=== PATIENT | female | born 1960 | race African-American/Black ===

== ENCOUNTER 2016-11-03 11:10 | Emergency (ER) | payer MEDICARE, OTHER ==
[~2016-11-03] VITALS: Ht 154.9 cm; Wt 122.0 kg
[~2016-11-03 11:10] MED LIST: AMLO10TA2 PO; AMOX500T PO; ASPI81TA2 PO; CLON0.3T PO; CLOP75TA27 PO; DOCU-27 PO; FOLI0.8T3 PO; FURO-68 PO; HYDR100T24 PO; INSU100I17 SQ; INSU100V10 SQ; INSU100V13 SQ; INSU100V8 SQ; LISI40TA PO; ONDA4TAB7 PO; POLY17PO5 PO; PROM25TA10 PO; SENN-22 PO; SEVE2.4P PO; VERA240C2 PO
[2016-11-03 13:13] LABS: BASO % 1 % (0-3); EOS % 4 % (0-3); HEMATOCRIT 30.7 % (36.0-47.0); HEMOGLOBIN 9.6 g/dL (12.0-15.5); LYMPH # 1.3 x10^3/uL (1.0-4.8); LYMPH % 14 % (24-48); MEAN CORPUSCULAR HEMOGLOBIN 29 pg (25-35); MEAN CORPUSCULAR HGB CONC 31 g/dL (31-37); MEAN CORPUSCULAR VOLUME 93 fL (79-100); MONO % 12 % (0-9); NEUT % 70 % (31-73); PLATELET COUNT 220 x10^3/uL (140-400); RED BLOOD COUNT 3.31 x10^6/uL (3.50-5.40); WHITE BLOOD COUNT 9.1 x10^3/uL (4.0-11.0)
[2016-11-03 13:26] LABS: CALCIUM 8.5 mg/dL (8.5-10.1); CREATININE 5.2 mg/dL (0.6-1.0); GFR 10.3; POTASSIUM 3.9 mmol/L (3.5-5.1)
--- NOTE | 2016-11-03 13:39 | RAD ---
Two-view chest x-ray Clinical indications shortness of breath for one week. Dyspnea. Comparison: Chest x-ray dated August 16, 2016. Findings: Right subclavian central line is in place and the tip is seen within the mid superior vena cava. Vascular stent is seen within the right brachial region. Small right-sided pleural effusion and posterior right lower lobe lung infiltrate is now seen. The heart size is mildly enlarged but stable. Mediastinum and pulmonary vasculature and both lovely are unremarkable. The osseous structures remain intact. IMPRESSION: Posterior right lower lobe lung infiltrate and small right-sided pleural effusion.
--- NOTE | 2016-11-03 13:46 | PHYS DOC ---
Past Medical History Past Medical History: Diabetes-Type II, Hypertension, Renal Failure, Other Additional Past Medical Histor: HEMODIAYLSIS Past Surgical History: , Other Additional Past Surgical Histo: dialysis shunt right upper arm-removed, Dialysis shunt L upper arm, Vascath Alcohol Use: None Drug Use: None Adult General Chief Complaint Chief Complaint: SHORTNESS OF BREATH HPI HPI Patient is a 56 year old female who presents with one week of dyspnea on exertion. She states that she fatigues easier while walking than usual. She improves at rest. She denies chest pain, lightheadedness, dizziness, back pain, cough, fever or chills, palpitations, orthopnea, leg pain or swelling. She states she is one pound below her dry weight. She has been compliant with dialysis. Review of Systems Review of Systems Constitutional: Denies fever or chills [] Eyes: Denies change in visual acuity, redness, or eye pain [] HENT: Denies nasal congestion or sore throat [] Respiratory: Denies cough [] Cardiovascular: No additional information not addressed in HPI [] GI: Denies abdominal pain, nausea, vomiting, bloody stools or diarrhea [] : Denies dysuria or hematuria [] Musculoskeletal: Denies back pain or joint pain [] Integument: Denies rash or skin lesions [] Neurologic: Denies headache, focal weakness or sensory changes [] Endocrine: Denies polyuria or polydipsia [] Allergies Allergies Allergies Coded Allergies Type Severity Reaction Last Updated Verified No Known Drug Allergies 09/29/16 No Physical Exam Physical Exam Constitutional: Well developed, well nourished, no acute distress, non-toxic appearance. [] HENT: Normocephalic, atraumatic, bilateral external ears normal, oropharynx moist, nose normal. [] Eyes: PERRLA, EOMI. [] Neck: Normal range of motion, supple. [] Cardiovascular:Heart rate regular rhythm [] Lungs & Thorax: Bilateral breath sounds clear to auscultation. Temporary dialysis catheter to right upper chest that is well-appearing at skin [] Abdomen: Bowel sounds normal, soft, no tenderness. [] Skin: Warm, dry, no erythema, no rash. [] Back: No tenderness, no CVA tenderness. [] Extremities: No tenderness, ROM intact, no edema. [] Neurologic: Alert and oriented X 3, normal motor function, normal sensory function, no focal deficits noted. [] Psychologic: Affect normal, judgement normal, mood normal. [] Current Patient Data Vital Signs Vital Signs Date Time Temp Pulse Resp B/P Pulse Ox O2 Delivery O2 Flow Rate FiO2 11/03/16 13:53 74 18 168/73 99 11/03/16 13:23 Nasal Cannula 11/03/16 12:13 98.5 98.5 Lab Values Laboratory Tests Test 11/03/16 12:52 White Blood Count 9.1x10^3/uL (4.0-11.0) Red Blood Count 3.31x10^6/uL (3.50-5.40) L Hemoglobin 9.6g/dL (12.0-15.5) L Hematocrit 30.7% (36.0-47.0) L Mean Corpuscular Volume 93fL (79-100) Mean Corpuscular Hemoglobin 29pg (25-35) Mean Corpuscular Hemoglobin Concent 31g/dL (31-37) Red Cell Distribution Width 18.0% (11.5-14.5) H Platelet Count 220x10^3/uL (140-400) Neutrophils (%) (Auto) 70% (31-73) Lymphocytes (%) (Auto) 14% (24-48) L Monocytes (%) (Auto) 12% (0-9) H Eosinophils (%) (Auto) 4% (0-3) H Basophils (%) (Auto) 1% (0-3) Neutrophils # (Auto) 6.4x10^3uL (1.8-7.7) Lymphocytes # (Auto) 1.3x10^3/uL (1.0-4.8) Monocytes # (Auto) 1.1x10^3/uL (0.0-1.1) Eosinophils # (Auto) 0.3x10^3/uL (0.0-0.7) Basophils # (Auto) 0.0x10^3/uL (0.0-0.2) Sodium Level 141mmol/L (136-145) Potassium Level 3.9mmol/L (3.5-5.1) Chloride Level 106mmol/L (98-107) Carbon Dioxide Level 24mmol/L (21-32) Anion Gap 11 (6-14) Blood Urea Nitrogen 20mg/dL (7-20) Creatinine 5.2mg/dL (0.6-1.0) H Estimated GFR (Cockcroft-Gault) 10.3 Glucose Level 148mg/dL (70-99) H Calcium Level 8.5mg/dL (8.5-10.1) Laboratory Tests 11/03/16 12:52 Laboratory Tests 11/03/16 12:52 EKG EKG EKG as interpreted by me as normal sinus rhythm, rate 76, no ST-T changes, normal intervals, no ectopy Radiology/Procedures Radiology/Procedures Chest x-ray as interpreted by me with small right pleural effusion, otherwise no focal consolidation or cardiopulmonary disease process Course & Med Decision Making Course & Med Decision Making Pertinent Labs and Imaging studies reviewed. (See chart for details) She has a right pleural effusion, but otherwise workup is unremarkable. She has been ambulatory through the emergency department and feels comfortable. She has no oxygen requirement at this time. She has no infectious symptoms either. She would like to go home and follow-up with her primary care doctor closely. Return precautions given. She understands and agrees with plan. Dragon Disclaimer Dragon Disclaimer This electronic medical record was generated, in whole or in part, using a voice recognition dictation system. Departure Departure Impression: Primary Impression: Dyspnea Disposition: 01 HOME, SELF-CARE Condition: STABLE Referrals: PETE TILLMAN APRN (PCP) Patient Instructions: Shortness of Breath, [id number] Additional Instructions: Follow-up with your primary care doctor. Return for any concerns. Problem Qualifiers Primary Impression: Dyspnea Dyspnea type: dyspnea on exertion Qualified Code: R06.09 - Other forms of dyspnea Rahel DE LA VEGA MD Nov 03, 2016 13:46
[2016-11-03 13:53] VITALS: BP 168/73
--- NOTE | 2016-11-03 16:00 | EKG ---
[facility] [address] [place] [address] Test Date: 2016-11-03 Test Time: 13:06:24 Pat Name: OLIVE ROBERTS Department: Room: Gender: F Can Patcher: : 1960 Requested By: Rahel DE LA VEGA Order Number: [id number] Reading MD: Estelita Casey Measurements Intervals [place] Rate: 76 P: 36 PA: 170 QRS: 29 QRSD: 76 T: 34 QT: 400 QTc: 455 Interpretive Statements SINUS RHYTHM NORMAL ECG RI6.01 Compared to ECG 08/16/2016 12:10:07 No significant changes Electronically Signed On 11-05-2016 20:51:22 RESIDENTIAL CARE OFFICER by Estelita Casey
== END 2016-11-03 14:00 | disposition home or self-care (01) ==
LOC: ER 11:10
DX: R06.09 Other forms of dyspnea (principal); J90 Pleural effusion, not elsewhere classified; E11.22 Type 2 diabetes mellitus with diabetic chronic kidney disease; I12.9 Hypertensive chronic kidney disease with stage 1 through stage 4 chronic kidney disease, or unspecified chronic kidney disease; N18.9 Chronic kidney disease, unspecified; Z99.2 Dependence on renal dialysis
CPT/HCPCS: 36415; 71020; 80048; 85027; 93005; 99285-25

== ENCOUNTER 2017-02-14 19:24 | Inpatient (IN) | payer MEDICARE, OTHER ==
[~2017-02-14] VITALS: Ht 154.9 cm; Wt 112.7 kg
[~2017-02-14 19:24] MED LIST changes: +POLY17PO29 PO; -POLY17PO5 PO
[2017-02-14] MEDS ORDERED: ONDANSETRON PF 4 MG/2 ML VIAL. IV ONE (20:15)
[2017-02-14 20:28] LABS: BASO # 0.1 x10^3/uL (0.0-0.2); BASO % 1 % (0-3); EOS % 1 % (0-3); HEMATOCRIT 35.7 % (36.0-47.0); HEMOGLOBIN 11.4 g/dL (12.0-15.5); LYMPH # 0.7 x10^3/uL (1.0-4.8); LYMPH % 8 % (24-48); MEAN CORPUSCULAR HEMOGLOBIN 28 pg (25-35); MEAN CORPUSCULAR HGB CONC 32 g/dL (31-37); MEAN CORPUSCULAR VOLUME 89 fL (79-100); MONO % 7 % (0-9); NEUT % 84 % (31-73); PLATELET COUNT 231 x10^3/uL (140-400); RED BLOOD COUNT 4.02 x10^6/uL (3.50-5.40); RED CELL DISTRIBUTION WIDTH 19.7 % (11.5-14.5); WHITE BLOOD COUNT 8.8 x10^3/uL (4.0-11.0)
[2017-02-14 20:38] LABS: BILIRUBIN,URINE NEGATIVE (NEG); GLUCOSE,URINE 100 mg/dL (NEG); NITRITE,URINE NEGATIVE (NEG); PH,URINE 7.5; PROTEIN,URINE >=300 mg/dL (NEG-TRACE); UROBILINOGEN,URINE 0.2 mg/dL (0.2 mg/dL)
[2017-02-14 20:38] LABS: CALCIUM 8.7 mg/dL (8.5-10.1); CREATININE 6.7 mg/dL (0.6-1.0); GFR 7.7; POTASSIUM 4.8 mmol/L (3.5-5.1)
[2017-02-14 20:45] LABS: BACTERIA,URINE 0 /HPF (0-FEW); SQUAMOUS EPITHELIAL CELL,UR FEW /LPF
[2017-02-14 20:46] LABS: ALBUMIN 3.3 g/dL (3.4-5.0); ALBUMIN/GLOBULIN RATIO 0.9 (1.0-1.7); TOTAL BILIRUBIN 0.6 mg/dL (0.2-1.0); TOTAL PROTEIN 6.9 g/dL (6.4-8.2)
--- NOTE | 2017-02-14 21:14 | PHYS DOC ---
Past Medical History Past Medical History: Diabetes-Type II, Hypertension, Renal Failure, Other Additional Past Medical Histor: HEMODIAYLSIS Past Surgical History: , Other Additional Past Surgical Histo: dialysis shunt right upper arm-removed, Dialysis shunt L upper arm, Vascath Alcohol Use: None Drug Use: None Adult General Chief Complaint Chief Complaint: NAUSEA/VOMITING HPI HPI Patient is a 56 year old female dialysis patient who presents with about a week of nausea and vomiting. When it began, Zofran ODT was helping, for the last couple of days it has not been helping. She's been vomiting up to 7 times a day. She's been throwing up her meds including her antihypertensives. This is not a chronic problem for her. She did dialyze yesterday as scheduled, her dialysis schedule is Sunday and Sunday. She denies really any pain, denies abdominal pain, is just very nauseated and doing a lot of vomiting. No diarrhea. She also is a bit short of air, ED nurses reported that she was in the low 80s on room air on arrival and they put her on 2 L and her pulse ox came up to the low 90s. Patient denies fever or chills. Denies history of bowel obstruction. Review of Systems Review of Systems Constitutional: Denies fever or chills [] Eyes: Denies change in visual acuity, redness, or eye pain [] HENT: Denies nasal congestion or sore throat [] Respiratory: Denies cough or shortness of breath [] Cardiovascular: Denies chest pain GI: As in history of present illness : Denies dysuria or hematuria , she does still make urine Musculoskeletal: Denies back pain or joint pain [] Integument: Denies rash or skin lesions [] Neurologic: Denies headache, focal weakness or sensory changes [] Current Medications Current Medications Current Medications Medications (Trade) Dose Ordered Sig/Anil Start Time Stop Time Status Last Admin Dose Admin Hydralazine HCl (Apresoline) 10 mg 1X ONCE 02/14/17 21:15 02/14/17 21:16 DC 02/14/17 21:13 10 MG Ondansetron HCl (Zofran) 4 mg PRN Q8HRS PRN 02/14/17 22:15 02/15/17 22:14 Allergies Allergies Allergies Coded Allergies Type Severity Reaction Last Updated Verified No Known Drug Allergies 09/29/16 No Physical Exam Physical Exam Constitutional: Well developed, well nourished, alert, mentating normally, slightly dyspneic when talking HENT: Normocephalic, atraumatic, bilateral external ears normal, nose normal. [] Eyes: conjunctiva normal, no discharge. [] Neck: Normal range of motion, no stridor. [] Cardiovascular:Heart rate regular rhythm, no murmur [] Lungs & Thorax: Bilateral breath sounds clear to auscultation [] Abdomen: Bowel sounds normal, nondistended, soft, no tenderness, no masses, no pulsatile masses. Abdomen is really quite benign. Skin: Warm, dry, no erythema, no rash. [] Back: No tenderness, no CVA tenderness. [] Extremities: No tenderness, no cyanosis, no clubbing, ROM intact, no edema. Dialysis fistula in left arm appears stable. Neurologic: Alert and oriented X 3, normal motor function, normal sensory function, no focal deficits noted. [] Current Patient Data Vital Signs Vital Signs Date Time Temp Pulse Resp B/P Pulse Ox O2 Delivery O2 Flow Rate FiO2 02/14/17 21:30 87 22 197/131 97 Nasal Cannula 2 02/14/17 19:31 98.2 98.2 Lab Values Laboratory Tests Test 02/14/17 20:00 02/14/17 20:30 White Blood Count 8.8x10^3/uL (4.0-11.0) Red Blood Count 4.02x10^6/uL (3.50-5.40) Hemoglobin 11.4g/dL (12.0-15.5) L Hematocrit 35.7% (36.0-47.0) L Mean Corpuscular Volume 89fL (79-100) Mean Corpuscular Hemoglobin 28pg (25-35) Mean Corpuscular Hemoglobin Concent 32g/dL (31-37) Red Cell Distribution Width 19.7% (11.5-14.5) H Platelet Count 231x10^3/uL (140-400) Neutrophils (%) (Auto) 84% (31-73) H Lymphocytes (%) (Auto) 8% (24-48) L Monocytes (%) (Auto) 7% (0-9) Eosinophils (%) (Auto) 1% (0-3) Basophils (%) (Auto) 1% (0-3) Neutrophils # (Auto) 7.4x10^3uL (1.8-7.7) Lymphocytes # (Auto) 0.7x10^3/uL (1.0-4.8) L Monocytes # (Auto) 0.6x10^3/uL (0.0-1.1) Eosinophils # (Auto) 0.1x10^3/uL (0.0-0.7) Basophils # (Auto) 0.1x10^3/uL (0.0-0.2) Sodium Level 139mmol/L (136-145) Potassium Level 4.8mmol/L (3.5-5.1) Chloride Level 100mmol/L (98-107) Carbon Dioxide Level 29mmol/L (21-32) Anion Gap 10 (6-14) Blood Urea Nitrogen 38mg/dL (7-20) H Creatinine 6.7mg/dL (0.6-1.0) H Estimated GFR (Cockcroft-Gault) 7.7 BUN/Creatinine Ratio 6 (6-20) Glucose Level 202mg/dL (70-99) H Calcium Level 8.7mg/dL (8.5-10.1) Total Bilirubin 0.6mg/dL (0.2-1.0) Aspartate Amino Transferase (AST) 19U/L (15-37) Alanine Aminotransferase (ALT) 17U/L (14-59) Alkaline Phosphatase 78U/L (46-116) Troponin I Quantitative < 0.017ng/mL (0.000-0.055) Total Protein 6.9g/dL (6.4-8.2) Albumin 3.3g/dL (3.4-5.0) L Albumin/Globulin Ratio 0.9 (1.0-1.7) L Lipase 134U/L (73-393) Urine Collection Type U cath Urine Color Yellow Urine Clarity Clear Urine pH 7.5 Urine Specific [place] 1.015 Urine Protein >=300mg/dL (NEG-TRACE) Urine Glucose (UA) 100mg/dL (NEG) Urine Ketones (Stick) Tracemg/dL (NEG) Urine Blood Negative (NEG) Urine Nitrite Negative (NEG) Urine Bilirubin Negative (NEG) Urine Urobilinogen Dipstick 0.2mg/dL (0.2 mg/dL) Urine Leukocyte Esterase Negative (NEG) Urine RBC 11-20/HPF (0-2) Urine WBC 1-4/HPF (0-4) Urine Squamous Epithelial Cells Few/LPF Urine Renal Epithelial Cells Few/LPF Urine Bacteria 0/HPF (0-FEW) Urine Mucus Mod/LPF Laboratory Tests 02/14/17 20:00 Laboratory Tests 02/14/17 20:00 EKG EKG 12-lead EKG read by me. Sinus rhythm. Heart rate 92. There are no acute ST or T wave changes indicative of ischemia or infarction. No STEMI. 194 [] Radiology/Procedures Radiology/Procedures One view portable chest x-ray read by me. Heart size normal to borderline enlarged. Lung finch without significant consolidated infiltrate. No pleural effusions. Her may be some increased pulmonary vascularity, no overt pulmonary edema. [] Course & Med Decision Making Course & Med Decision Making Pertinent Labs and Imaging studies reviewed. (See chart for details) 56-year-old dialysis patient presents with a week of nausea and vomiting, worsening. She has not missed dialysis. Discussed with patient that we will check some labs and try some IV in time medic. She was not able to keep her blood pressure medicine down today, I will order her some antihypertensive as well. Patient remained stable in the ED and did not have any more vomiting after given IV Zofran. Her blood pressure ran high that she was given some IV hydralazine for that. Labs unremarkable for a finding that would be consistent with vomiting. Her abdominal exam is benign and I don't feel CT scan is indicated at this time. I discussed with the patient being admitted for symptom control and observation. I did not order IV fluids because of her status as a dialysis patient. Her chest x-ray may be consistent with some mild pulmonary edema as well so I don't want to give her any more fluids. I discussed the case with Dr. nogueira, [facility], who will admit the patient. I wrote bridge orders. [] Dragon Disclaimer Dragon Disclaimer This electronic medical record was generated, in whole or in part, using a voice recognition dictation system. Departure Departure Impression: Primary Impression: Nausea & vomiting Disposition: ADMITTED INPATIENT Admitting Physician: Jimena Nogueira Condition: STABLE Referrals: PETE TILLMAN APRN (PCP) CEDRIC HEWITT MD February 14, 2017 21:14
[2017-02-14] MEDS ORDERED: hydrALAZINE 20 MG/ML VIAL. IVP ONE (21:15)
[2017-02-14] MEDS ORDERED: ONDANSETRON PF 4 MG/2 ML VIAL. IV PRN (22:15)
[2017-02-14] MEDS ORDERED: PROMETHAZINE 12.5 MG TABLET. PO PRN (23:15)
--- NOTE | 2017-02-14 23:16 | PDOC1 ---
History and Physical Date of Admission Date of Admission DATE: 02/14/17 TIME: 23:07 Identification/Chief Complaint Chief Complaint vomiting Problems: Source Source: Chart review, Patient History of Present Illness History of Present Illness Ms. Rojas is a 56 year old female admit from the ER w. intractable nausea and vomiting. 7 days of problems, some benefit w/ Zofran ODT, but has been unable to keep meds down today, tried juice and crackers for breakfast and vomited, tried chicken wings for late lunch and vomitied, She's been vomiting up to 7 times a day. unable to take HTN meds compliant with other, was at HD yesterday and saw Dr. metcalf some nasal congestion, some change in voice, no diarrhea. minimal pain + thirsty Past Medical History Cardiovascular: HTN Renal/: Chronic renal failure Past Surgical History Past Surgical History: Other Family History Family History: No Significant Social History Smoke: No ALCOHOL: none Drugs: None Current Problem List Problem List Problems Medical Problems: (1) Nausea & vomiting Status: Acute Problems: Current Medications Current Medications Current Medications Ondansetron HCl (Zofran) 4 mg 1X ONCE IV Last administered on 02/14/17 20:28; Start 02/14/17 at 20:15; Stop 02/14/17 at 20:20; Status DC Hydralazine HCl (Apresoline) 10 mg 1X ONCE IVP Last administered on 02/14/17 21:13; Start 02/14/17 at 21:15; Stop 02/14/17 at 21:16; Status DC Ondansetron HCl (Zofran) 4 mg PRN Q8HRS PRN IV NAUSEA/VOMITING; Start 02/14/17 at 22:15; Stop 02/15/17 at 22:14 Active Scripts Active Senna-Time S Tablet (Sennosides/Docusate Sodium) 1 Each Tablet 1 Tab PO BID Promethazine Hcl 25 Mg Tablet 25 Mg PO Q6H PRN Reported Novolog Flexpen (Insulin Aspart) 100 Unit/1 Ml Insuln.pen 0 SQ Levemir (Insulin Detemir) 100 Unit/1 Ml Vial 18 Unit SQ QHS Colace (Docusate Sodium) 100 Mg Capsule 200 Mg PO BID Renvela (Sevelamer Carbonate) 2.4 Gm Powd.pack 2.4 Gm PO TIDWMEALS Plavix (Clopidogrel Bisulfate) 75 Mg Tablet 75 Mg PO DAILY Hydralazine Hcl 100 Mg Tablet 100 Mg PO TID Amlodipine Besylate 10 Mg Tablet 10 Mg PO DAILY Nephro-Jill Tablet (Folic Acid/Vitamin B Comp W-C) 0.8 Mg Tablet 0.8 Mg PO DAILY Aspirin 81 Mg Tab.chew 81 Mg PO DAILY Miralax (Polyethylene Glycol 3350) 17 Gm Powd.pack 17 Gm PO DAILY Lisinopril 40 Mg Tablet 40 Mg PO BID Clonidine Hcl 0.3 Mg Tablet 0.3 Mg PO QID Allergies Allergies: Coded Allergies: No Known Drug Allergies (Unverified , 09/29/16) ROS General: YES: Fatigue, Malaise, No: Chills, Night Sweats, Other PSYCHOLOGICAL ROS: YES: Sleep disturbances, No: Anxiety, Behavioral Disorder, Concentration difficultie, Decreased libido , Depression, Disorientation, Hallucinations, Hostility, Irritablity, Memory difficulties, Mood Swings, Obsessive thoughts, Other, Suicidal ideation Eyes: No Blurry vision, No Decreased vision, No Double vision, No Dry eyes, No Excessive tearing, No Eye Pain, No Itchy Eyes, No Loss of vision, No Other, No Photophobia, No Scotomata, No Uses contacts, No Uses glasses HEENT: No: Epistaxis, Heacaches, Hearing change, Nasal congestion, Nasal discharge, Oral lesions, Other, Sinus pain, Sneezing, Snoring, Sore Throat, Tinnitus, Vertigo, Visual Changes, Vocal changes ALLERGY AND IMMUNOLOGY: No: Hives, Insect Bite Sensitivity, Itchy/Watery Eyes, Nasal Congestion, Other, Post Nasal Drip, Seasonal Allergies Hematological and Lymphatic: No: Bleeding Problems, Blood Clots, Blood Transfusions, Brusing, Night Sweats, Other, Pallor, Swollen Lymph Nodes Respiratory: No: Cough, Hemoptysis, Orthopnea, Other, Pleuritic Pain, SOB with excertion, Shortness of breath, Sputum Changes, Stridor, Tachypnea, Wheezing Cardiovascular: No Chest Pain, No Edema, No Lt Headedness, No Orthopnea, No Other, No Palpitations, No Paroxysmal Noc. Dyspnea Gastrointestinal: Yes Abdominal Pain, Yes Nausea, Yes Vomiting, No Constipation, No Diarrhea, No Hematochezia, No Melena, No Other Genitourinary: No , No , No , No , No , No , No , No Discharge, No Dysuria, No Flank Pain, No Frequency, No Hematuria, No Incontinence, No Other, No Pain, No Retention, No Urgency Musculoskeletal: Yes Joint Pain, Yes Joint Stiffness, No Gait Disturbance, No Joint Swelling, No Muscle Pain, No Muscular Weakness , No Other, No Pain In:, No Swelling In: Neurological: No Behavorial Changes, No Bowel/Bladder ControlChng, No Confusion , No Dizziness, No Gait Disturbance, No Headaches, No Impaired Coord/balance, No Memory Loss, No Numbness/Tingling, No Other, No Seizures, No Speech Problems , No Tremors, No Visual Changes, No Weakness Skin: Yes Other, No Acne, No Dry Skin, No Eczema, No Hair Changes, No Lumps, No Mole Changes, No Mottling, No Nail Changes, No Pruritus, No Rash, No Skin Lesion Changes Physical Exam General: Alert, Cooperative, No acute distress HEENT: Mucous membr. moist/pink Lungs: Clear to auscultation, Normal air movement Heart: no gallops, no murmurs Abdomen: Normal bowel sounds, Soft (mild TTP) Rectal Exam: not examined Extremities: No clubbing, No edema Skin: No significant lesion Neuro: Normal tone, Sensation intact Vitals Vitals Vital Signs Date Time Temp Pulse Resp B/P Pulse Ox O2 Delivery O2 Flow Rate FiO2 02/14/17 22:00 84 20 176/76 98 Nasal Cannula 2 02/14/17 19:31 98.2 98.2 Labs Labs Laboratory Tests Test 02/14/17 20:00 02/14/17 20:30 White Blood Count 8.8x10^3/uL (4.0-11.0) Red Blood Count 4.02x10^6/uL (3.50-5.40) Hemoglobin 11.4g/dL (12.0-15.5) Hematocrit 35.7% (36.0-47.0) Mean Corpuscular Volume 89fL (79-100) Mean Corpuscular Hemoglobin 28pg (25-35) Mean Corpuscular Hemoglobin Concent 32g/dL (31-37) Red Cell Distribution Width 19.7% (11.5-14.5) Platelet Count 231x10^3/uL (140-400) Neutrophils (%) (Auto) 84% (31-73) Lymphocytes (%) (Auto) 8% (24-48) Monocytes (%) (Auto) 7% (0-9) Eosinophils (%) (Auto) 1% (0-3) Basophils (%) (Auto) 1% (0-3) Neutrophils # (Auto) 7.4x10^3uL (1.8-7.7) Lymphocytes # (Auto) 0.7x10^3/uL (1.0-4.8) Monocytes # (Auto) 0.6x10^3/uL (0.0-1.1) Eosinophils # (Auto) 0.1x10^3/uL (0.0-0.7) Basophils # (Auto) 0.1x10^3/uL (0.0-0.2) Sodium Level 139mmol/L (136-145) Potassium Level 4.8mmol/L (3.5-5.1) Chloride Level 100mmol/L (98-107) Carbon Dioxide Level 29mmol/L (21-32) Anion Gap 10 (6-14) Blood Urea Nitrogen 38mg/dL (7-20) Creatinine 6.7mg/dL (0.6-1.0) Estimated GFR (Cockcroft-Gault) 7.7 BUN/Creatinine Ratio 6 (6-20) Glucose Level 202mg/dL (70-99) Calcium Level 8.7mg/dL (8.5-10.1) Total Bilirubin 0.6mg/dL (0.2-1.0) Aspartate Amino Transf (AST/SGOT) 19U/L (15-37) Alanine Aminotransferase (ALT/SGPT) 17U/L (14-59) Alkaline Phosphatase 78U/L (46-116) Troponin I Quantitative < 0.017ng/mL (0.000-0.055) Total Protein 6.9g/dL (6.4-8.2) Albumin 3.3g/dL (3.4-5.0) Albumin/Globulin Ratio 0.9 (1.0-1.7) Lipase 134U/L (73-393) Urine Collection Type U cath Urine Color Yellow Urine Clarity Clear Urine pH 7.5 Urine Specific [place] 1.015 Urine Protein >=300mg/dL (NEG-TRACE) Urine Glucose (UA) 100mg/dL (NEG) Urine Ketones (Stick) Tracemg/dL (NEG) Urine Blood Negative (NEG) Urine Nitrite Negative (NEG) Urine Bilirubin Negative (NEG) Urine Urobilinogen Dipstick 0.2mg/dL (0.2 mg/dL) Urine Leukocyte Esterase Negative (NEG) Urine RBC 11-20/HPF (0-2) Urine WBC 1-4/HPF (0-4) Urine Squamous Epithelial Cells Few/LPF Urine Renal Epithelial Cells Few/LPF Urine Bacteria 0/HPF (0-FEW) Urine Mucus Mod/LPF Laboratory Tests Test 02/14/17 20:00 02/14/17 20:30 White Blood Count 8.8x10^3/uL (4.0-11.0) Red Blood Count 4.02x10^6/uL (3.50-5.40) Hemoglobin 11.4g/dL (12.0-15.5) Hematocrit 35.7% (36.0-47.0) Mean Corpuscular Volume 89fL (79-100) Mean Corpuscular Hemoglobin 28pg (25-35) Mean Corpuscular Hemoglobin Concent 32g/dL (31-37) Red Cell Distribution Width 19.7% (11.5-14.5) Platelet Count 231x10^3/uL (140-400) Neutrophils (%) (Auto) 84% (31-73) Lymphocytes (%) (Auto) 8% (24-48) Monocytes (%) (Auto) 7% (0-9) Eosinophils (%) (Auto) 1% (0-3) Basophils (%) (Auto) 1% (0-3) Neutrophils # (Auto) 7.4x10^3uL (1.8-7.7) Lymphocytes # (Auto) 0.7x10^3/uL (1.0-4.8) Monocytes # (Auto) 0.6x10^3/uL (0.0-1.1) Eosinophils # (Auto) 0.1x10^3/uL (0.0-0.7) Basophils # (Auto) 0.1x10^3/uL (0.0-0.2) Sodium Level 139mmol/L (136-145) Potassium Level 4.8mmol/L (3.5-5.1) Chloride Level 100mmol/L (98-107) Carbon Dioxide Level 29mmol/L (21-32) Anion Gap 10 (6-14) Blood Urea Nitrogen 38mg/dL (7-20) Creatinine 6.7mg/dL (0.6-1.0) Estimated GFR (Cockcroft-Gault) 7.7 BUN/Creatinine Ratio 6 (6-20) Glucose Level 202mg/dL (70-99) Calcium Level 8.7mg/dL (8.5-10.1) Total Bilirubin 0.6mg/dL (0.2-1.0) Aspartate Amino Transf (AST/SGOT) 19U/L (15-37) Alanine Aminotransferase (ALT/SGPT) 17U/L (14-59) Alkaline Phosphatase 78U/L (46-116) Troponin I Quantitative < 0.017ng/mL (0.000-0.055) Total Protein 6.9g/dL (6.4-8.2) Albumin 3.3g/dL (3.4-5.0) Albumin/Globulin Ratio 0.9 (1.0-1.7) Lipase 134U/L (73-393) Urine Collection Type U cath Urine Color Yellow Urine Clarity Clear Urine pH 7.5 Urine Specific [place] 1.015 Urine Protein >=300mg/dL (NEG-TRACE) Urine Glucose (UA) 100mg/dL (NEG) Urine Ketones (Stick) Tracemg/dL (NEG) Urine Blood Negative (NEG) Urine Nitrite Negative (NEG) Urine Bilirubin Negative (NEG) Urine Urobilinogen Dipstick 0.2mg/dL (0.2 mg/dL) Urine Leukocyte Esterase Negative (NEG) Urine RBC 11-20/HPF (0-2) Urine WBC 1-4/HPF (0-4) Urine Squamous Epithelial Cells Few/LPF Urine Renal Epithelial Cells Few/LPF Urine Bacteria 0/HPF (0-FEW) Urine Mucus Mod/LPF VTE Prophylaxis Ordered VTE Prophylaxis Devices: Yes VTE Pharmacological Prophylaxi: Yes Assessment/Plan Assessment/Plan acute abd pain, vomiting, and nausea, no diarrhea no abd pain, check KUB for poss SBO, limit PO intake to ice and sips consult GI, check chem 12 in AM cont zofran and phenergan ESRD, HD due tomorrow was 1 KG over dry weight yesterday morbid obesity, BMI 47 DM2, hold aspart when NPO, glucose 200 when she reports mostly NPO all day, HTN, poor control, 175/105 in ER, she reports was over 210 systolic at HD yesterday, was given additional klonipin admit BRAD QUEZADA MD February 14, 2017 23:16
[2017-02-14 23:30] VITALS: BP 183/59
[2017-02-15 02:44] VITALS: BP 169/55
[2017-02-15] MEDS ORDERED: SEVE2.4P PO (03:28)
[2017-02-15 03:32] LABS: BASO # 0.1 x10^3/uL (0.0-0.2); BASO % 1 % (0-3); EOS % 1 % (0-3); HEMATOCRIT 33.1 % (36.0-47.0); HEMOGLOBIN 10.7 g/dL (12.0-15.5); LYMPH # 1.1 x10^3/uL (1.0-4.8); LYMPH % 14 % (24-48); MEAN CORPUSCULAR HEMOGLOBIN 29 pg (25-35); MEAN CORPUSCULAR HGB CONC 32 g/dL (31-37); MEAN CORPUSCULAR VOLUME 88 fL (79-100); MONO % 13 % (0-9); NEUT % 72 % (31-73); PLATELET COUNT 216 x10^3/uL (140-400); RED BLOOD COUNT 3.75 x10^6/uL (3.50-5.40); RED CELL DISTRIBUTION WIDTH 19.9 % (11.5-14.5); WHITE BLOOD COUNT 7.9 x10^3/uL (4.0-11.0)
[2017-02-15 03:37] LABS: MAGNESIUM 2.3 mg/dL (1.8-2.4); PHOSPHORUS 5.4 mg/dL (2.6-4.7)
[2017-02-15 03:40] LABS: ALBUMIN 3.1 g/dL (3.4-5.0); CALCIUM 8.2 mg/dL (8.5-10.1); CREATININE 7.3 mg/dL (0.6-1.0); GFR 6.9; TOTAL BILIRUBIN 0.5 mg/dL (0.2-1.0); TOTAL PROTEIN 6.2 g/dL (6.4-8.2)
[2017-02-15 06:48] VITALS: BP 187/66
--- NOTE | 2017-02-15 06:48 | EKG ---
[facility] [address] [place] [id number] Test Date: 2017-02-14 Test Time: 19:44:54 Pat Name: OLIVE ROBERTS Department: Room: 646 1 Gender: F Yarn Dumper: : 1960 Requested By: CEDRIC HEWITT Order Number: [id number] Reading MD: Estelita Casey Measurements Intervals [place] Rate: 92 P: 53 MA: 142 QRS: 24 QRSD: 70 T: 44 QT: 356 QTc: 445 Interpretive Statements SINUS RHYTHM LEFT ATRIAL ABNORMALITY RI6.01 Unconfirmed report Compared to ECG 11/03/2016 13:06:24 Atrial abnormality now present Electronically Signed On 02-18-2017 17:35:27 CDT by Estelita Casey
--- NOTE | 2017-02-15 07:15 | RAD ---
Portable abdomen, 2 views, 02/15/2017: History: Vomiting There is a moderate amount of stool in the right colon. The abdominal gas pattern shows no evidence of obstruction. No free air is seen in the abdomen. There is no evidence of organomegaly. Blunting of the left lateral costophrenic angle suggests the presence of a small amount of left-sided pleural fluid. IMPRESSION: 1. No acute abdominal abnormality is detected. 2. Possible small left pleural effusion.
--- NOTE | 2017-02-15 08:14 | RAD ---
Portable chest, 02/14/2017: History: Hypoxia, shortness of breath Comparison is made to a study from 11/03/2016. The heart is mildly enlarged. The pulmonary vascularity is within normal limits. There is poor penetration of the lung bases due to the patient's size. There is questionable infiltrate or pleural fluid in the left lateral costophrenic angle. A vascular stent is projected over the right axillary region. IMPRESSION: 1. Mild cardiomegaly. 2. Possible mild left basilar infiltrate or pleural fluid.. Follow-up PA and lateral chest radiographs in the radiology department are suggested for further evaluation, if clinically indicated.
[2017-02-15] MEDS: SENNOSIDES/DOCUSATE 8.6/50MG TABLET. PO SCH ×2 (08:23→21:41)
[2017-02-15] MEDS: DOCUSATE SODIUM 100 MG CAPSULE. PO SCH ×2 (08:25→21:40)
[2017-02-15] MEDS: POLYETHYLENE GLYCOL 3350 17 GM PACKET. PO SCH (08:25)
[2017-02-15] MEDS: ASPIRIN CHEWABLE 81 MG TABLET. PO SCH (08:26)
[2017-02-15] MEDS: cloNIDine HCL 0.3 MG TABLET PO SCH ×4 (08:26→21:39)
[2017-02-15] MEDS: SEVELAMER CARBONATE 2.4 GM PACKET. PO SCH ×3 (08:27→17:00)
--- NOTE | 2017-02-15 08:29 | PDOC2 ---
GI CONSULT Reason For Consult: N/v HPI: HPI: 56 y/o female w/ PMH as below reports h/o n/v x 1 month. Similar symptoms in , seen in ER, resolved. When recurred, at first occurred about every other day, often 30-60 minutes after eating. Has epigastric fullness and nausea frequently. Estimates 30 pound weight loss since 09/2016. Often feels "burning" in her throat. Saw PCP 1.5 weeks ago, started on PPI BID and Zofran ODT which were both somewhat effective. Symptoms much worse yesterday, unable to keep any pills or liquids down, was evaluated in ER and admitted. H/o constipation controlled w/ Colace BID + Miralax QD. No hematemesis, hematochezia, melena. No NSAIDs. 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 No previous EGD or colonoscopy. 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 FH: Family History: No pertinent hx (denies GI cancers) Social History: Smoke: No ALCOHOL: none Drugs: None ROS: GEN: Denies fevers, chills, sweats HEENT: Denies blurred vision, sore throat CV: Denies chest pain RESP: +SOA GI: Per HPI : Denies hematuria, dysuria ENDO: +weight loss NEURO: Denies confusion, dizziness MSK: Denies weakness, joint pain/swelling SKIN: Denies jaundice, pruritus VItals: Vitals: Vital Signs Date Time Temp Pulse Resp B/P (MAP) Pulse Ox O2 Delivery O2 Flow Rate FiO2 02/15/17 06:48 97.9 84 20 187/66 (106) 92 Nasal Cannula 2.0 97.9 Labs: Labs: Laboratory Tests Test 02/14/17 20:00 02/14/17 20:30 02/14/17 23:13 02/15/17 02:50 White Blood Count 8.8 x10^3/uL (4.0-11.0) 7.9 x10^3/uL (4.0-11.0) Red Blood Count 4.02 x10^6/uL (3.50-5.40) 3.75 x10^6/uL (3.50-5.40) Hemoglobin 11.4 g/dL (12.0-15.5) 10.7 g/dL (12.0-15.5) Hematocrit 35.7 % (36.0-47.0) 33.1 % (36.0-47.0) Mean Corpuscular Volume 89 fL (79-100) 88 fL (79-100) Mean Corpuscular Hemoglobin 28 pg (25-35) 29 pg (25-35) Mean Corpuscular Hemoglobin Concent 32 g/dL (31-37) 32 g/dL (31-37) Red Cell Distribution Width 19.7 % (11.5-14.5) 19.9 % (11.5-14.5) Platelet Count 231 x10^3/uL (140-400) 216 x10^3/uL (140-400) Neutrophils (%) (Auto) 84 % (31-73) 72 % (31-73) Lymphocytes (%) (Auto) 8 % (24-48) 14 % (24-48) Monocytes (%) (Auto) 7 % (0-9) 13 % (0-9) Eosinophils (%) (Auto) 1 % (0-3) 1 % (0-3) Basophils (%) (Auto) 1 % (0-3) 1 % (0-3) Neutrophils # (Auto) 7.4 x10^3uL (1.8-7.7) 5.7 x10^3uL (1.8-7.7) Lymphocytes # (Auto) 0.7 x10^3/uL (1.0-4.8) 1.1 x10^3/uL (1.0-4.8) Monocytes # (Auto) 0.6 x10^3/uL (0.0-1.1) 1.0 x10^3/uL (0.0-1.1) Eosinophils # (Auto) 0.1 x10^3/uL (0.0-0.7) 0.1 x10^3/uL (0.0-0.7) Basophils # (Auto) 0.1 x10^3/uL (0.0-0.2) 0.1 x10^3/uL (0.0-0.2) Sodium Level 139 mmol/L (136-145) 139 mmol/L (136-145) Potassium Level 4.8 mmol/L (3.5-5.1) 5.0 mmol/L (3.5-5.1) Chloride Level 100 mmol/L (98-107) 100 mmol/L (98-107) Carbon Dioxide Level 29 mmol/L (21-32) 31 mmol/L (21-32) Anion Gap 10 (6-14) 8 (6-14) Blood Urea Nitrogen 38 mg/dL (7-20) 40 mg/dL (7-20) Creatinine 6.7 mg/dL (0.6-1.0) 7.3 mg/dL (0.6-1.0) Estimated GFR (Cockcroft-Gault) 7.7 6.9 BUN/Creatinine Ratio 6 (6-20) 5 (6-20) Glucose Level 202 mg/dL (70-99) 229 mg/dL (70-99) Calcium Level 8.7 mg/dL (8.5-10.1) 8.2 mg/dL (8.5-10.1) Total Bilirubin 0.6 mg/dL (0.2-1.0) 0.5 mg/dL (0.2-1.0) Aspartate Amino Transf (AST/SGOT) 19 U/L (15-37) 18 U/L (15-37) Alanine Aminotransferase (ALT/SGPT) 17 U/L (14-59) 18 U/L (14-59) Alkaline Phosphatase 78 U/L (46-116) 70 U/L (46-116) Troponin I Quantitative < 0.017 ng/mL (0.000-0.055) Total Protein 6.9 g/dL (6.4-8.2) 6.2 g/dL (6.4-8.2) Albumin 3.3 g/dL (3.4-5.0) 3.1 g/dL (3.4-5.0) Albumin/Globulin Ratio 0.9 (1.0-1.7) 1.0 (1.0-1.7) Lipase 134 U/L (73-393) Urine Collection Type U cath Urine Color Yellow Urine Clarity Clear Urine pH 7.5 Urine Specific [place] 1.015 Urine Protein >=300 mg/dL (NEG-TRACE) Urine Glucose (UA) 100 mg/dL (NEG) Urine Ketones (Stick) Trace mg/dL (NEG) Urine Blood Negative (NEG) Urine Nitrite Negative (NEG) Urine Bilirubin Negative (NEG) Urine Urobilinogen Dipstick 0.2 mg/dL (0.2 mg/dL) Urine Leukocyte Esterase Negative (NEG) Urine RBC 11-20 /HPF (0-2) Urine WBC 1-4 /HPF (0-4) Urine Squamous Epithelial Cells Few /LPF Urine Renal Epithelial Cells Few /LPF Urine Bacteria 0 /HPF (0-FEW) Urine Mucus Mod /LPF Glucose (Fingerstick) 165 mg/dL (70-99) Phosphorus Level 5.4 mg/dL (2.6-4.7) Magnesium Level 2.3 mg/dL (1.8-2.4) Thyroid Stimulating Hormone (TSH) 0.659 uIU/mL (0.358-3.74) Test 02/15/17 06:55 Glucose (Fingerstick) 196 mg/dL (70-99) Allergies: Coded Allergies: No Known Drug Allergies (Unverified , 09/29/16) Medications: Current Medications Medications (Trade) Dose Ordered Sig/Anil Route PRN Reason Start Time Stop Time Status Last Admin Dose Admin Ondansetron HCl (Zofran) 4 mg 1X ONCE IV 02/14/17 20:15 02/14/17 20:20 DC 02/14/17 20:28 Hydralazine HCl (Apresoline) 10 mg 1X ONCE IVP 02/14/17 21:15 02/14/17 21:16 DC 02/14/17 21:13 PE: GEN: NAD, obese HEENT: Atraumatic, PERRL LUNGS: CTAB HEART: RRR ABD: NABS, S/ND/NT EXTREMITY: BLE edema SKIN: No rashes, no jaundice NEURO/PSYCH: A & O 3 A/P: A/P: N/v, weight loss, early satiety -QOD x 1 month, worse yesterday Reflux -started on PPI recently H/o constipation -she says controlled w/ Colace and Miralax CRC screen -no previous ESRD on HD, DM -on Plavix -says last A1c was ~5 -- Will start PPI and check GES. ABBEY AYON February 15, 2017 08:29
[2017-02-15] MEDS ORDERED: LABE300T PO (08:31)
[2017-02-15] MEDS: HEPARIN PF for SUB-Q USE 5,000 UNIT/0.5 ML VIAL. SQ SCH ×2 (08:39→21:00)
[2017-02-15] MEDS: INSULIN ASPART 300 UNITS/3 ML INSULN.PEN SQ SCH ×4 (08:40→16:30)
[2017-02-15] MEDS: LABETALOL HCL 100 MG TABLET. PO SCH ×3 (08:43→21:37)
[2017-02-15] MEDS ORDERED: ONDANSETRON PF 4 MG/2 ML VIAL. IV PRN (08:51)
[2017-02-15] MEDS ORDERED: LABETALOL 20 MG/4 ML DISP.SYRIN. IVP PRN (09:00)
--- NOTE | 2017-02-15 09:56 | PDOC ---
PROGRESS NOTES Chief Complaint Chief Complaint 1. NAusea, vomiting, abd pain difftl includes gastroparesis 2. DM 2 with good control Hgba1c 5 3. HTN urgency POA 4. morbid Obesity with mild pCM 5. ESRD on HD (TTHS) 6. Anemia of CKD History of Present Illness History of Present Illness Ate reg food tray today - kept it down Hgba1c 5,.4 Good BS she claims at home USed to see endoc Dr. Mir Phillips PCP [place] NO neuropathy HAs been DM since age 20s PLAn: GET HD today If does well overnight, home alexi Follow GI recs Vitals Vitals Vital Signs Date Time Temp Pulse Resp B/P (MAP) Pulse Ox O2 Delivery O2 Flow Rate FiO2 02/15/17 08:43 84 187/66 02/15/17 08:00 Nasal Cannula 2.0 02/15/17 06:48 97.9 20 92 97.9 Physical Exam General: Alert, Cooperative, No acute distress Lungs: Clear, Other Abdomen: Normal bowel sounds, Soft (mild TTP) Extremities: No clubbing, No edema Skin: No significant lesion Labs LABS Laboratory Tests Test 02/14/17 20:00 02/14/17 20:30 02/14/17 23:13 02/15/17 02:50 White Blood Count 8.8 x10^3/uL (4.0-11.0) 7.9 x10^3/uL (4.0-11.0) Red Blood Count 4.02 x10^6/uL (3.50-5.40) 3.75 x10^6/uL (3.50-5.40) Hemoglobin 11.4 g/dL (12.0-15.5) 10.7 g/dL (12.0-15.5) Hematocrit 35.7 % (36.0-47.0) 33.1 % (36.0-47.0) Mean Corpuscular Volume 89 fL (79-100) 88 fL (79-100) Mean Corpuscular Hemoglobin 28 pg (25-35) 29 pg (25-35) Mean Corpuscular Hemoglobin Concent 32 g/dL (31-37) 32 g/dL (31-37) Red Cell Distribution Width 19.7 % (11.5-14.5) 19.9 % (11.5-14.5) Platelet Count 231 x10^3/uL (140-400) 216 x10^3/uL (140-400) Neutrophils (%) (Auto) 84 % (31-73) 72 % (31-73) Lymphocytes (%) (Auto) 8 % (24-48) 14 % (24-48) Monocytes (%) (Auto) 7 % (0-9) 13 % (0-9) Eosinophils (%) (Auto) 1 % (0-3) 1 % (0-3) Basophils (%) (Auto) 1 % (0-3) 1 % (0-3) Neutrophils # (Auto) 7.4 x10^3uL (1.8-7.7) 5.7 x10^3uL (1.8-7.7) Lymphocytes # (Auto) 0.7 x10^3/uL (1.0-4.8) 1.1 x10^3/uL (1.0-4.8) Monocytes # (Auto) 0.6 x10^3/uL (0.0-1.1) 1.0 x10^3/uL (0.0-1.1) Eosinophils # (Auto) 0.1 x10^3/uL (0.0-0.7) 0.1 x10^3/uL (0.0-0.7) Basophils # (Auto) 0.1 x10^3/uL (0.0-0.2) 0.1 x10^3/uL (0.0-0.2) Sodium Level 139 mmol/L (136-145) 139 mmol/L (136-145) Potassium Level 4.8 mmol/L (3.5-5.1) 5.0 mmol/L (3.5-5.1) Chloride Level 100 mmol/L (98-107) 100 mmol/L (98-107) Carbon Dioxide Level 29 mmol/L (21-32) 31 mmol/L (21-32) Anion Gap 10 (6-14) 8 (6-14) Blood Urea Nitrogen 38 mg/dL (7-20) 40 mg/dL (7-20) Creatinine 6.7 mg/dL (0.6-1.0) 7.3 mg/dL (0.6-1.0) Estimated GFR (Cockcroft-Gault) 7.7 6.9 BUN/Creatinine Ratio 6 (6-20) 5 (6-20) Glucose Level 202 mg/dL (70-99) 229 mg/dL (70-99) Calcium Level 8.7 mg/dL (8.5-10.1) 8.2 mg/dL (8.5-10.1) Total Bilirubin 0.6 mg/dL (0.2-1.0) 0.5 mg/dL (0.2-1.0) Aspartate Amino Transf (AST/SGOT) 19 U/L (15-37) 18 U/L (15-37) Alanine Aminotransferase (ALT/SGPT) 17 U/L (14-59) 18 U/L (14-59) Alkaline Phosphatase 78 U/L (46-116) 70 U/L (46-116) Troponin I Quantitative < 0.017 ng/mL (0.000-0.055) Total Protein 6.9 g/dL (6.4-8.2) 6.2 g/dL (6.4-8.2) Albumin 3.3 g/dL (3.4-5.0) 3.1 g/dL (3.4-5.0) Albumin/Globulin Ratio 0.9 (1.0-1.7) 1.0 (1.0-1.7) Lipase 134 U/L (73-393) Urine Collection Type U cath Urine Color Yellow Urine Clarity Clear Urine pH 7.5 Urine Specific [place] 1.015 Urine Protein >=300 mg/dL (NEG-TRACE) Urine Glucose (UA) 100 mg/dL (NEG) Urine Ketones (Stick) Trace mg/dL (NEG) Urine Blood Negative (NEG) Urine Nitrite Negative (NEG) Urine Bilirubin Negative (NEG) Urine Urobilinogen Dipstick 0.2 mg/dL (0.2 mg/dL) Urine Leukocyte Esterase Negative (NEG) Urine RBC 11-20 /HPF (0-2) Urine WBC 1-4 /HPF (0-4) Urine Squamous Epithelial Cells Few /LPF Urine Renal Epithelial Cells Few /LPF Urine Bacteria 0 /HPF (0-FEW) Urine Mucus Mod /LPF Glucose (Fingerstick) 165 mg/dL (70-99) Phosphorus Level 5.4 mg/dL (2.6-4.7) Magnesium Level 2.3 mg/dL (1.8-2.4) Thyroid Stimulating Hormone (TSH) 0.659 uIU/mL (0.358-3.74) Test 02/15/17 06:55 Glucose (Fingerstick) 196 mg/dL (70-99) Review of Systems Review of Systems no n/v/d/ abd pain, cp, soa Assessment and Plan Assessmemt and Plan Problems Medical Problems: (1) Nausea & vomiting Status: Acute Problems: Comment Review of Relevant I have reviewed the following items morgan (where applicable) has been applied. Labs Laboratory Tests Test 02/14/17 20:00 02/14/17 20:30 02/14/17 23:13 02/15/17 02:50 White Blood Count 8.8 x10^3/uL (4.0-11.0) 7.9 x10^3/uL (4.0-11.0) Red Blood Count 4.02 x10^6/uL (3.50-5.40) 3.75 x10^6/uL (3.50-5.40) Hemoglobin 11.4 g/dL (12.0-15.5) 10.7 g/dL (12.0-15.5) Hematocrit 35.7 % (36.0-47.0) 33.1 % (36.0-47.0) Mean Corpuscular Volume 89 fL (79-100) 88 fL (79-100) Mean Corpuscular Hemoglobin 28 pg (25-35) 29 pg (25-35) Mean Corpuscular Hemoglobin Concent 32 g/dL (31-37) 32 g/dL (31-37) Red Cell Distribution Width 19.7 % (11.5-14.5) 19.9 % (11.5-14.5) Platelet Count 231 x10^3/uL (140-400) 216 x10^3/uL (140-400) Neutrophils (%) (Auto) 84 % (31-73) 72 % (31-73) Lymphocytes (%) (Auto) 8 % (24-48) 14 % (24-48) Monocytes (%) (Auto) 7 % (0-9) 13 % (0-9) Eosinophils (%) (Auto) 1 % (0-3) 1 % (0-3) Basophils (%) (Auto) 1 % (0-3) 1 % (0-3) Neutrophils # (Auto) 7.4 x10^3uL (1.8-7.7) 5.7 x10^3uL (1.8-7.7) Lymphocytes # (Auto) 0.7 x10^3/uL (1.0-4.8) 1.1 x10^3/uL (1.0-4.8) Monocytes # (Auto) 0.6 x10^3/uL (0.0-1.1) 1.0 x10^3/uL (0.0-1.1) Eosinophils # (Auto) 0.1 x10^3/uL (0.0-0.7) 0.1 x10^3/uL (0.0-0.7) Basophils # (Auto) 0.1 x10^3/uL (0.0-0.2) 0.1 x10^3/uL (0.0-0.2) Sodium Level 139 mmol/L (136-145) 139 mmol/L (136-145) Potassium Level 4.8 mmol/L (3.5-5.1) 5.0 mmol/L (3.5-5.1) Chloride Level 100 mmol/L (98-107) 100 mmol/L (98-107) Carbon Dioxide Level 29 mmol/L (21-32) 31 mmol/L (21-32) Anion Gap 10 (6-14) 8 (6-14) Blood Urea Nitrogen 38 mg/dL (7-20) 40 mg/dL (7-20) Creatinine 6.7 mg/dL (0.6-1.0) 7.3 mg/dL (0.6-1.0) Estimated GFR (Cockcroft-Gault) 7.7 6.9 BUN/Creatinine Ratio 6 (6-20) 5 (6-20) Glucose Level 202 mg/dL (70-99) 229 mg/dL (70-99) Calcium Level 8.7 mg/dL (8.5-10.1) 8.2 mg/dL (8.5-10.1) Total Bilirubin 0.6 mg/dL (0.2-1.0) 0.5 mg/dL (0.2-1.0) Aspartate Amino Transf (AST/SGOT) 19 U/L (15-37) 18 U/L (15-37) Alanine Aminotransferase (ALT/SGPT) 17 U/L (14-59) 18 U/L (14-59) Alkaline Phosphatase 78 U/L (46-116) 70 U/L (46-116) Troponin I Quantitative < 0.017 ng/mL (0.000-0.055) Total Protein 6.9 g/dL (6.4-8.2) 6.2 g/dL (6.4-8.2) Albumin 3.3 g/dL (3.4-5.0) 3.1 g/dL (3.4-5.0) Albumin/Globulin Ratio 0.9 (1.0-1.7) 1.0 (1.0-1.7) Lipase 134 U/L (73-393) Urine Collection Type U cath Urine Color Yellow Urine Clarity Clear Urine pH 7.5 Urine Specific [place] 1.015 Urine Protein >=300 mg/dL (NEG-TRACE) Urine Glucose (UA) 100 mg/dL (NEG) Urine Ketones (Stick) Trace mg/dL (NEG) Urine Blood Negative (NEG) Urine Nitrite Negative (NEG) Urine Bilirubin Negative (NEG) Urine Urobilinogen Dipstick 0.2 mg/dL (0.2 mg/dL) Urine Leukocyte Esterase Negative (NEG) Urine RBC 11-20 /HPF (0-2) Urine WBC 1-4 /HPF (0-4) Urine Squamous Epithelial Cells Few /LPF Urine Renal Epithelial Cells Few /LPF Urine Bacteria 0 /HPF (0-FEW) Urine Mucus Mod /LPF Glucose (Fingerstick) 165 mg/dL (70-99) Phosphorus Level 5.4 mg/dL (2.6-4.7) Magnesium Level 2.3 mg/dL (1.8-2.4) Thyroid Stimulating Hormone (TSH) 0.659 uIU/mL (0.358-3.74) Test 02/15/17 06:55 Glucose (Fingerstick) 196 mg/dL (70-99) Laboratory Tests Test 02/14/17 20:00 02/14/17 20:30 02/14/17 23:13 02/15/17 02:50 White Blood Count 8.8 x10^3/uL (4.0-11.0) 7.9 x10^3/uL (4.0-11.0) Red Blood Count 4.02 x10^6/uL (3.50-5.40) 3.75 x10^6/uL (3.50-5.40) Hemoglobin 11.4 g/dL (12.0-15.5) 10.7 g/dL (12.0-15.5) Hematocrit 35.7 % (36.0-47.0) 33.1 % (36.0-47.0) Mean Corpuscular Volume 89 fL (79-100) 88 fL (79-100) Mean Corpuscular Hemoglobin 28 pg (25-35) 29 pg (25-35) Mean Corpuscular Hemoglobin Concent 32 g/dL (31-37) 32 g/dL (31-37) Red Cell Distribution Width 19.7 % (11.5-14.5) 19.9 % (11.5-14.5) Platelet Count 231 x10^3/uL (140-400) 216 x10^3/uL (140-400) Neutrophils (%) (Auto) 84 % (31-73) 72 % (31-73) Lymphocytes (%) (Auto) 8 % (24-48) 14 % (24-48) Monocytes (%) (Auto) 7 % (0-9) 13 % (0-9) Eosinophils (%) (Auto) 1 % (0-3) 1 % (0-3) Basophils (%) (Auto) 1 % (0-3) 1 % (0-3) Neutrophils # (Auto) 7.4 x10^3uL (1.8-7.7) 5.7 x10^3uL (1.8-7.7) Lymphocytes # (Auto) 0.7 x10^3/uL (1.0-4.8) 1.1 x10^3/uL (1.0-4.8) Monocytes # (Auto) 0.6 x10^3/uL (0.0-1.1) 1.0 x10^3/uL (0.0-1.1) Eosinophils # (Auto) 0.1 x10^3/uL (0.0-0.7) 0.1 x10^3/uL (0.0-0.7) Basophils # (Auto) 0.1 x10^3/uL (0.0-0.2) 0.1 x10^3/uL (0.0-0.2) Sodium Level 139 mmol/L (136-145) 139 mmol/L (136-145) Potassium Level 4.8 mmol/L (3.5-5.1) 5.0 mmol/L (3.5-5.1) Chloride Level 100 mmol/L (98-107) 100 mmol/L (98-107) Carbon Dioxide Level 29 mmol/L (21-32) 31 mmol/L (21-32) Anion Gap 10 (6-14) 8 (6-14) Blood Urea Nitrogen 38 mg/dL (7-20) 40 mg/dL (7-20) Creatinine 6.7 mg/dL (0.6-1.0) 7.3 mg/dL (0.6-1.0) Estimated GFR (Cockcroft-Gault) 7.7 6.9 BUN/Creatinine Ratio 6 (6-20) 5 (6-20) Glucose Level 202 mg/dL (70-99) 229 mg/dL (70-99) Calcium Level 8.7 mg/dL (8.5-10.1) 8.2 mg/dL (8.5-10.1) Total Bilirubin 0.6 mg/dL (0.2-1.0) 0.5 mg/dL (0.2-1.0) Aspartate Amino Transf (AST/SGOT) 19 U/L (15-37) 18 U/L (15-37) Alanine Aminotransferase (ALT/SGPT) 17 U/L (14-59) 18 U/L (14-59) Alkaline Phosphatase 78 U/L (46-116) 70 U/L (46-116) Troponin I Quantitative < 0.017 ng/mL (0.000-0.055) Total Protein 6.9 g/dL (6.4-8.2) 6.2 g/dL (6.4-8.2) Albumin 3.3 g/dL (3.4-5.0) 3.1 g/dL (3.4-5.0) Albumin/Globulin Ratio 0.9 (1.0-1.7) 1.0 (1.0-1.7) Lipase 134 U/L (73-393) Urine Collection Type U cath Urine Color Yellow Urine Clarity Clear Urine pH 7.5 Urine Specific [place] 1.015 Urine Protein >=300 mg/dL (NEG-TRACE) Urine Glucose (UA) 100 mg/dL (NEG) Urine Ketones (Stick) Trace mg/dL (NEG) Urine Blood Negative (NEG) Urine Nitrite Negative (NEG) Urine Bilirubin Negative (NEG) Urine Urobilinogen Dipstick 0.2 mg/dL (0.2 mg/dL) Urine Leukocyte Esterase Negative (NEG) Urine RBC 11-20 /HPF (0-2) Urine WBC 1-4 /HPF (0-4) Urine Squamous Epithelial Cells Few /LPF Urine Renal Epithelial Cells Few /LPF Urine Bacteria 0 /HPF (0-FEW) Urine Mucus Mod /LPF Glucose (Fingerstick) 165 mg/dL (70-99) Phosphorus Level 5.4 mg/dL (2.6-4.7) Magnesium Level 2.3 mg/dL (1.8-2.4) Thyroid Stimulating Hormone (TSH) 0.659 uIU/mL (0.358-3.74) Test 02/15/17 06:55 Glucose (Fingerstick) 196 mg/dL (70-99) Medications Current Medications Ondansetron HCl (Zofran) 4 mg 1X ONCE IV Last administered on 02/14/17 20:28; Start 02/14/17 at 20:15; Stop 02/14/17 at 20:20; Status DC Hydralazine HCl (Apresoline) 10 mg 1X ONCE IVP Last administered on 02/14/17 21:13; Start 02/14/17 at 21:15; Stop 02/14/17 at 21:16; Status DC Ondansetron HCl (Zofran) 4 mg PRN Q8HRS PRN IV NAUSEA/VOMITING; Start 02/14/17 at 22:15; Stop 02/15/17 at 08:53; Status DC Amlodipine Besylate (Norvasc) 10 mg DAILY PO ; Start 02/15/17 at 09:00 Aspirin (Children'S Aspirin) 81 mg DAILY PO Last administered on 02/15/17 08:26 ; Start 02/15/17 at 09:00 Clonidine HCl (Catapres) 0.3 mg QID PO Last administered on 02/15/17 08:26; Start 02/15/17 at 09:00 Docusate Sodium (Colace) 200 mg BID PO Last administered on 02/15/17 08:25; Start 02/15/17 at 09:00 Vitamin B Complex/ Vitamin C (Olga-Jill) 1 tab DAILY PO ; Start 02/15/17 at 09:00 Insulin Aspart (Novolog) 6 units TIDAC SQ Last administered on 02/15/17 08:40; Start 02/15/17 at 07:30 Lisinopril (Prinivil) 40 mg BID PO ; Start 02/15/17 at 09:00 Polyethylene Glycol (miraLAX PACKET) 17 gm DAILY PO Last administered on 08:25; Start 02/15/17 at 09:00 Senna/Docusate Sodium (Senna Plus) 1 tab BID PO Last administered on 02/15/17 08:23; Start 02/15/17 at 09:00 Sevelamer Carbonate (Renvela) 2.4 gm TIDWMEALS PO Last administered on 08:27; Start 02/15/17 at 08:00 Hydralazine HCl (Apresoline) 100 mg TID PO Last administered on 02/15/17 08:27 ; Start 02/15/17 at 09:00 Insulin Detemir (Levemir) 18 units QHS SQ ; Start 02/15/17 at 21:00 Promethazine HCl (Phenergan) 25 mg PRN Q6HRS PRN PO NAUSEA/VOMITING; Start 02/14 at 23:15 Heparin Sodium (Porcine) 5,000 unit BID SQ Last administered on 02/15/17 08:39 ; Start 02/15/17 at 09:00 Pantoprazole Sodium (Protonix) 40 mg DAILYAC PO ; Start 02/15/17 at 09:00 Labetalol HCl (Trandate) 300 mg TID PO Last administered on 02/15/17 08:43; Start 02/15/17 at 09:00 Ondansetron HCl (Zofran) 4 mg PRN Q6HRS PRN IV NAUSEA/VOMITING; Start 02/15/17 at 08:51; Stop 02/16/17 at 08:50 Labetalol HCl (Normodyne) 10 mg PRN Q2HR PRN IVP HYPERTENSION, SEE COMMENTS; Start 02/15/17 at 09:00 Active Scripts Active Senna-Time S Tablet (Sennosides/Docusate Sodium) 1 Each Tablet 1 Tab PO BID Promethazine Hcl 25 Mg Tablet 25 Mg PO Q6H PRN Reported Labetalol Hcl 300 Mg Tablet 1 Tab PO TID Novolog Flexpen (Insulin Aspart) 100 Unit/1 Ml Insuln.pen 0 SQ Levemir (Insulin Detemir) 100 Unit/1 Ml Vial 18 Unit SQ QHS Colace (Docusate Sodium) 100 Mg Capsule 200 Mg PO BID Renvela (Sevelamer Carbonate) 2.4 Gm Powd.pack 2.4 Gm PO TIDWMEALS Plavix (Clopidogrel Bisulfate) 75 Mg Tablet 75 Mg PO DAILY Hydralazine Hcl 100 Mg Tablet 100 Mg PO TID Amlodipine Besylate 10 Mg Tablet 10 Mg PO DAILY Nephro-Jill Tablet (Folic Acid/Vitamin B Comp W-C) 0.8 Mg Tablet 0.8 Mg PO DAILY Aspirin 81 Mg Tab.chew 81 Mg PO DAILY Miralax (Polyethylene Glycol 3350) 17 Gm Powd.pack 17 Gm PO DAILY Lisinopril 40 Mg Tablet 40 Mg PO BID Clonidine Hcl 0.3 Mg Tablet 0.3 Mg PO QID Vitals/I & O Vital Sign - Last 24 Hours 02/14/17 02/14/17 02/14/17 02/14/17 19:31 19:39 20:00 20:33 Temp 98.2 98.2 Pulse 94 92 88 94 Resp 36 22 22 22 B/P (MAP) 185/77 (113) 185/77 (113) 208/86 (126) 231/94 (139) Pulse Ox 81 96 96 92 O2 Delivery Room Air Nasal Cannula Nasal Cannula Nasal Cannula O2 Flow Rate 2 02/14/17 02/14/17 02/14/17 02/14/17 21:00 21:13 21:30 21:41 Pulse 87 88 87 87 Resp 22 22 20 B/P (MAP) 200/79 (119) 200/79 197/131 (153) 199/79 (119) Pulse Ox 97 97 98 O2 Delivery Nasal Cannula Nasal Cannula Nasal Cannula O2 Flow Rate 2 2 2 02/14/17 02/14/17 02/14/17 02/15/17 22:00 23:30 23:34 02:44 Temp 98.8 98.6 98.8 98.6 Pulse 84 84 83 Resp 20 16 16 B/P (MAP) 176/76 (109) 183/59 (100) 169/55 (93) Pulse Ox 98 94 93 O2 Delivery Nasal Cannula Nasal Cannula Nasal Cannula Nasal Cannula O2 Flow Rate 2 2.0 2.0 2.0 02/15/17 02/15/17 02/15/17 02/15/17 06:48 08:00 08:26 08:27 Temp 97.9 97.9 Pulse 84 84 84 Resp 20 B/P (MAP) 187/66 (106) 187/66 187/66 Pulse Ox 92 O2 Delivery Nasal Cannula Nasal Cannula O2 Flow Rate 2.0 2.0 02/15/17 08:43 Pulse 84 B/P (MAP) 187/66 Intake and Output 02/14/17 02/14/17 02/15/17 15:00 23:00 07:00 Intake Total 310 ml Output Total 200 ml Balance 110 ml FEDERICO GODOY MD February 15, 2017 09:56
[2017-02-15 10:58] VITALS: BP 153/51
--- NOTE | 2017-02-15 11:49 | PDOC2 ---
CONSULT Date of Consult Date of Consult DATE: 02/15/17 TIME: 11:44 Reason for Consult Reason for Consult: ESRD TTSat Referring Physician Referring Physician: Dr Butts Identification/Chief Complaint Chief Complaint [place] Problems: Source Source: Chart review, Patient Past Medical History Cardiovascular: HTN Renal/: Chronic renal failure Past Surgical History Past Surgical History: Other Family History Family History: No Significant Social History No ALCOHOL: none Drugs: None Lives: with Family Current Problem List Problem List Problems Medical Problems: (1) Nausea & vomiting Status: Acute Current Medications Current Medications Current Medications Ondansetron HCl (Zofran) 4 mg 1X ONCE IV Last administered on 02/14/17 20:28; Start 02/14/17 at 20:15; Stop 02/14/17 at 20:20; Status DC Hydralazine HCl (Apresoline) 10 mg 1X ONCE IVP Last administered on 02/14/17 21:13; Start 02/14/17 at 21:15; Stop 02/14/17 at 21:16; Status DC Ondansetron HCl (Zofran) 4 mg PRN Q8HRS PRN IV NAUSEA/VOMITING; Start 02/14/17 at 22:15; Stop 02/15/17 at 08:53; Status DC Amlodipine Besylate (Norvasc) 10 mg DAILY PO ; Start 02/15/17 at 09:00 Aspirin (Children'S Aspirin) 81 mg DAILY PO Last administered on 02/15/17 08:26 ; Start 02/15/17 at 09:00 Clonidine HCl (Catapres) 0.3 mg QID PO Last administered on 02/15/17 08:26; Start 02/15/17 at 09:00 Docusate Sodium (Colace) 200 mg BID PO Last administered on 02/15/17 08:25; Start 02/15/17 at 09:00 Vitamin B Complex/ Vitamin C (Olga-Jill) 1 tab DAILY PO ; Start 02/15/17 at 09:00 Insulin Aspart (Novolog) 6 units TIDAC SQ Last administered on 02/15/17 08:40; Start 02/15/17 at 07:30 Lisinopril (Prinivil) 40 mg BID PO ; Start 02/15/17 at 09:00 Polyethylene Glycol (miraLAX PACKET) 17 gm DAILY PO Last administered on 08:25; Start 02/15/17 at 09:00 Senna/Docusate Sodium (Senna Plus) 1 tab BID PO Last administered on 02/15/17 08:23; Start 02/15/17 at 09:00 Sevelamer Carbonate (Renvela) 2.4 gm TIDWMEALS PO Last administered on 08:27; Start 02/15/17 at 08:00 Hydralazine HCl (Apresoline) 100 mg TID PO Last administered on 02/15/17 08:27 ; Start 02/15/17 at 09:00 Insulin Detemir (Levemir) 18 units QHS SQ ; Start 02/15/17 at 21:00 Promethazine HCl (Phenergan) 25 mg PRN Q6HRS PRN PO NAUSEA/VOMITING; Start 02/14 at 23:15 Heparin Sodium (Porcine) 5,000 unit BID SQ Last administered on 02/15/17 08:39 ; Start 02/15/17 at 09:00 Pantoprazole Sodium (Protonix) 40 mg DAILYAC PO ; Start 02/15/17 at 09:00 Labetalol HCl (Trandate) 300 mg TID PO Last administered on 02/15/17 08:43; Start 02/15/17 at 09:00 Ondansetron HCl (Zofran) 4 mg PRN Q6HRS PRN IV NAUSEA/VOMITING; Start 02/15/17 at 08:51; Stop 02/16/17 at 08:50 Labetalol HCl (Normodyne) 10 mg PRN Q2HR PRN IVP HYPERTENSION, SEE COMMENTS; Start 02/15/17 at 09:00 Active Scripts Active Senna-Time S Tablet (Sennosides/Docusate Sodium) 1 Each Tablet 1 Tab PO BID Promethazine Hcl 25 Mg Tablet 25 Mg PO Q6H PRN Reported Labetalol Hcl 300 Mg Tablet 1 Tab PO TID Novolog Flexpen (Insulin Aspart) 100 Unit/1 Ml Insuln.pen 0 SQ Levemir (Insulin Detemir) 100 Unit/1 Ml Vial 18 Unit SQ QHS Colace (Docusate Sodium) 100 Mg Capsule 200 Mg PO BID Renvela (Sevelamer Carbonate) 2.4 Gm Powd.pack 2.4 Gm PO TIDWMEALS Plavix (Clopidogrel Bisulfate) 75 Mg Tablet 75 Mg PO DAILY Hydralazine Hcl 100 Mg Tablet 100 Mg PO TID Amlodipine Besylate 10 Mg Tablet 10 Mg PO DAILY Nephro-Jill Tablet (Folic Acid/Vitamin B Comp W-C) 0.8 Mg Tablet 0.8 Mg PO DAILY Aspirin 81 Mg Tab.chew 81 Mg PO DAILY Miralax (Polyethylene Glycol 3350) 17 Gm Powd.pack 17 Gm PO DAILY Lisinopril 40 Mg Tablet 40 Mg PO BID Clonidine Hcl 0.3 Mg Tablet 0.3 Mg PO QID Allergies Allergies: Coded Allergies: No Known Drug Allergies (Unverified , 09/29/16) ROS Review of System GEN: no Fevers no Chills EYES: no Visual Complaints ENT: no EN Drainage no Hearing deficiets CVS: no Orthopnea no CP RESP: no SOB no CHO GI: + Nausea + Vomiting : no Dysuria no Urgency HEME: no easy bruising no Palp Ly Nodes NEURO no Focal Weakness no Sz PSYCH: no Suicidal Ideation no Depression SKIN: no Rashes ENDO: no Polyuria or Polydipsia no Hot/Cold Intolerance MU SK: no Arthraigia no Myalgia Physical Exam Physical Exam General Appearance: Awake Alert Oriented x 3 In no Distress Eyes: VIsion Unchanged Conjunctiva Normal EN: No EN Drainage Mucous Memb. moist Neck: no JVD no JVP Supple no Thyromegaly CVS: S1 S2 no Murmur No Gallop No Rub no Edema Resp: no Rales no Rhonchi no Acc. Muscle use GI: BAS +ve NO Bruit Non Tender Non Distended : no CVA tenderness; no Suprapubic Tenderness SKIN: no Rashes Breast Exam deferred Mu.Sk: Adequate ROM no Muscle Atrophy Heme: Unable to palpate Obvious LAD no Splenomegaly NEURO: Good Strength and Tone Cranial Nerves II - XII grossly intact Psych: no Depressed no Active hallucination Vital Signs Vital Signs Date Time Temp Pulse Resp B/P (MAP) Pulse Ox O2 Delivery O2 Flow Rate FiO2 02/15/17 10:58 97.9 76 19 153/51 (85) 96 Nasal Cannula 2.0 97.9 Assessment & Plan ESRD: Dialysis as below F 180 NR 3.5 Hrs 2 K 2.5 Ca 140 Na 35 HC03 Qb 350 + Qd 500+ Heparin 0 Units Uf to 1-2 kg < dry weight as tolerated May give 25-50 gms of 25% Albumin if needed to maintain Hemodynamic stability Treatment plan reviewed and discussed with [facility] ? Pl eff - Uf with HD Anemia: start Epogen when hgb < 10. Transfuse with next HD as needed. HTN: Current BP meds reviewed. See orders for changes. some lability. reval once home BP meds are restarted and challenge of d/wt Bone & Mineral: follow phos [place] - doubt URemic per se, pt claims she has been compliant with OP HD. Await GI eval. ? due to Constipation Discussed Plan of Care with Pt Labs Labs Laboratory Tests Test 02/14/17 20:00 02/14/17 20:30 02/14/17 23:13 02/15/17 02:50 White Blood Count 8.8 x10^3/uL (4.0-11.0) 7.9 x10^3/uL (4.0-11.0) Red Blood Count 4.02 x10^6/uL (3.50-5.40) 3.75 x10^6/uL (3.50-5.40) Hemoglobin 11.4 g/dL (12.0-15.5) 10.7 g/dL (12.0-15.5) Hematocrit 35.7 % (36.0-47.0) 33.1 % (36.0-47.0) Mean Corpuscular Volume 89 fL (79-100) 88 fL (79-100) Mean Corpuscular Hemoglobin 28 pg (25-35) 29 pg (25-35) Mean Corpuscular Hemoglobin Concent 32 g/dL (31-37) 32 g/dL (31-37) Red Cell Distribution Width 19.7 % (11.5-14.5) 19.9 % (11.5-14.5) Platelet Count 231 x10^3/uL (140-400) 216 x10^3/uL (140-400) Neutrophils (%) (Auto) 84 % (31-73) 72 % (31-73) Lymphocytes (%) (Auto) 8 % (24-48) 14 % (24-48) Monocytes (%) (Auto) 7 % (0-9) 13 % (0-9) Eosinophils (%) (Auto) 1 % (0-3) 1 % (0-3) Basophils (%) (Auto) 1 % (0-3) 1 % (0-3) Neutrophils # (Auto) 7.4 x10^3uL (1.8-7.7) 5.7 x10^3uL (1.8-7.7) Lymphocytes # (Auto) 0.7 x10^3/uL (1.0-4.8) 1.1 x10^3/uL (1.0-4.8) Monocytes # (Auto) 0.6 x10^3/uL (0.0-1.1) 1.0 x10^3/uL (0.0-1.1) Eosinophils # (Auto) 0.1 x10^3/uL (0.0-0.7) 0.1 x10^3/uL (0.0-0.7) Basophils # (Auto) 0.1 x10^3/uL (0.0-0.2) 0.1 x10^3/uL (0.0-0.2) Sodium Level 139 mmol/L (136-145) 139 mmol/L (136-145) Potassium Level 4.8 mmol/L (3.5-5.1) 5.0 mmol/L (3.5-5.1) Chloride Level 100 mmol/L (98-107) 100 mmol/L (98-107) Carbon Dioxide Level 29 mmol/L (21-32) 31 mmol/L (21-32) Anion Gap 10 (6-14) 8 (6-14) Blood Urea Nitrogen 38 mg/dL (7-20) 40 mg/dL (7-20) Creatinine 6.7 mg/dL (0.6-1.0) 7.3 mg/dL (0.6-1.0) Estimated GFR (Cockcroft-Gault) 7.7 6.9 BUN/Creatinine Ratio 6 (6-20) 5 (6-20) Glucose Level 202 mg/dL (70-99) 229 mg/dL (70-99) Calcium Level 8.7 mg/dL (8.5-10.1) 8.2 mg/dL (8.5-10.1) Total Bilirubin 0.6 mg/dL (0.2-1.0) 0.5 mg/dL (0.2-1.0) Aspartate Amino Transf (AST/SGOT) 19 U/L (15-37) 18 U/L (15-37) Alanine Aminotransferase (ALT/SGPT) 17 U/L (14-59) 18 U/L (14-59) Alkaline Phosphatase 78 U/L (46-116) 70 U/L (46-116) Troponin I Quantitative < 0.017 ng/mL (0.000-0.055) Total Protein 6.9 g/dL (6.4-8.2) 6.2 g/dL (6.4-8.2) Albumin 3.3 g/dL (3.4-5.0) 3.1 g/dL (3.4-5.0) Albumin/Globulin Ratio 0.9 (1.0-1.7) 1.0 (1.0-1.7) Lipase 134 U/L (73-393) Urine Collection Type U cath Urine Color Yellow Urine Clarity Clear Urine pH 7.5 Urine Specific [place] 1.015 Urine Protein >=300 mg/dL (NEG-TRACE) Urine Glucose (UA) 100 mg/dL (NEG) Urine Ketones (Stick) Trace mg/dL (NEG) Urine Blood Negative (NEG) Urine Nitrite Negative (NEG) Urine Bilirubin Negative (NEG) Urine Urobilinogen Dipstick 0.2 mg/dL (0.2 mg/dL) Urine Leukocyte Esterase Negative (NEG) Urine RBC 11-20 /HPF (0-2) Urine WBC 1-4 /HPF (0-4) Urine Squamous Epithelial Cells Few /LPF Urine Renal Epithelial Cells Few /LPF Urine Bacteria 0 /HPF (0-FEW) Urine Mucus Mod /LPF Glucose (Fingerstick) 165 mg/dL (70-99) Phosphorus Level 5.4 mg/dL (2.6-4.7) Magnesium Level 2.3 mg/dL (1.8-2.4) Thyroid Stimulating Hormone (TSH) 0.659 uIU/mL (0.358-3.74) Test 02/15/17 06:55 02/15/17 11:29 Glucose (Fingerstick) 196 mg/dL (70-99) 178 mg/dL (70-99) Laboratory Tests Test 02/14/17 20:00 02/14/17 20:30 02/14/17 23:13 02/15/17 02:50 White Blood Count 8.8 x10^3/uL (4.0-11.0) 7.9 x10^3/uL (4.0-11.0) Red Blood Count 4.02 x10^6/uL (3.50-5.40) 3.75 x10^6/uL (3.50-5.40) Hemoglobin 11.4 g/dL (12.0-15.5) 10.7 g/dL (12.0-15.5) Hematocrit 35.7 % (36.0-47.0) 33.1 % (36.0-47.0) Mean Corpuscular Volume 89 fL (79-100) 88 fL (79-100) Mean Corpuscular Hemoglobin 28 pg (25-35) 29 pg (25-35) Mean Corpuscular Hemoglobin Concent 32 g/dL (31-37) 32 g/dL (31-37) Red Cell Distribution Width 19.7 % (11.5-14.5) 19.9 % (11.5-14.5) Platelet Count 231 x10^3/uL (140-400) 216 x10^3/uL (140-400) Neutrophils (%) (Auto) 84 % (31-73) 72 % (31-73) Lymphocytes (%) (Auto) 8 % (24-48) 14 % (24-48) Monocytes (%) (Auto) 7 % (0-9) 13 % (0-9) Eosinophils (%) (Auto) 1 % (0-3) 1 % (0-3) Basophils (%) (Auto) 1 % (0-3) 1 % (0-3) Neutrophils # (Auto) 7.4 x10^3uL (1.8-7.7) 5.7 x10^3uL (1.8-7.7) Lymphocytes # (Auto) 0.7 x10^3/uL (1.0-4.8) 1.1 x10^3/uL (1.0-4.8) Monocytes # (Auto) 0.6 x10^3/uL (0.0-1.1) 1.0 x10^3/uL (0.0-1.1) Eosinophils # (Auto) 0.1 x10^3/uL (0.0-0.7) 0.1 x10^3/uL (0.0-0.7) Basophils # (Auto) 0.1 x10^3/uL (0.0-0.2) 0.1 x10^3/uL (0.0-0.2) Sodium Level 139 mmol/L (136-145) 139 mmol/L (136-145) Potassium Level 4.8 mmol/L (3.5-5.1) 5.0 mmol/L (3.5-5.1) Chloride Level 100 mmol/L (98-107) 100 mmol/L (98-107) Carbon Dioxide Level 29 mmol/L (21-32) 31 mmol/L (21-32) Anion Gap 10 (6-14) 8 (6-14) Blood Urea Nitrogen 38 mg/dL (7-20) 40 mg/dL (7-20) Creatinine 6.7 mg/dL (0.6-1.0) 7.3 mg/dL (0.6-1.0) Estimated GFR (Cockcroft-Gault) 7.7 6.9 BUN/Creatinine Ratio 6 (6-20) 5 (6-20) Glucose Level 202 mg/dL (70-99) 229 mg/dL (70-99) Calcium Level 8.7 mg/dL (8.5-10.1) 8.2 mg/dL (8.5-10.1) Total Bilirubin 0.6 mg/dL (0.2-1.0) 0.5 mg/dL (0.2-1.0) Aspartate Amino Transf (AST/SGOT) 19 U/L (15-37) 18 U/L (15-37) Alanine Aminotransferase (ALT/SGPT) 17 U/L (14-59) 18 U/L (14-59) Alkaline Phosphatase 78 U/L (46-116) 70 U/L (46-116) Troponin I Quantitative < 0.017 ng/mL (0.000-0.055) Total Protein 6.9 g/dL (6.4-8.2) 6.2 g/dL (6.4-8.2) Albumin 3.3 g/dL (3.4-5.0) 3.1 g/dL (3.4-5.0) Albumin/Globulin Ratio 0.9 (1.0-1.7) 1.0 (1.0-1.7) Lipase 134 U/L (73-393) Urine Collection Type U cath Urine Color Yellow Urine Clarity Clear Urine pH 7.5 Urine Specific [place] 1.015 Urine Protein >=300 mg/dL (NEG-TRACE) Urine Glucose (UA) 100 mg/dL (NEG) Urine Ketones (Stick) Trace mg/dL (NEG) Urine Blood Negative (NEG) Urine Nitrite Negative (NEG) Urine Bilirubin Negative (NEG) Urine Urobilinogen Dipstick 0.2 mg/dL (0.2 mg/dL) Urine Leukocyte Esterase Negative (NEG) Urine RBC 11-20 /HPF (0-2) Urine WBC 1-4 /HPF (0-4) Urine Squamous Epithelial Cells Few /LPF Urine Renal Epithelial Cells Few /LPF Urine Bacteria 0 /HPF (0-FEW) Urine Mucus Mod /LPF Glucose (Fingerstick) 165 mg/dL (70-99) Phosphorus Level 5.4 mg/dL (2.6-4.7) Magnesium Level 2.3 mg/dL (1.8-2.4) Thyroid Stimulating Hormone (TSH) 0.659 uIU/mL (0.358-3.74) Test 02/15/17 06:55 02/15/17 11:29 Glucose (Fingerstick) 196 mg/dL (70-99) 178 mg/dL (70-99) Images Images Portable abdomen, 2 views, 02/15/2017: History: Vomiting There is a moderate amount of stool in the right colon. The abdominal gas pattern shows no evidence of obstruction. No free air is seen in the abdomen. There is no evidence of organomegaly. Blunting of the left lateral costophrenic angle suggests the presence of a small amount of left-sided pleural fluid. IMPRESSION: 1. No acute abdominal abnormality is detected. 2. Possible small left pleural effusion. CHEL MORFIN MD February 15, 2017 11:49
--- NOTE | 2017-02-15 15:29 | RAD ---
Radionuclide gastric emptying study, 02/15/2017: History: Nausea and vomiting The study was performed utilizing a solid test meal radiolabeled with 1.8 mCi of technetium 99m sulfur colloid. Imaging performed out to one hour showed very little gastric emptying. The time/activity curve is relatively flat. The T1/2 was calculated at 645 minutes. IMPRESSION: Markedly delayed gastric emptying
[2017-02-15 15:48] VITALS: BP 155/44
[2017-02-15] MEDS ORDERED: IV NORMAL SALINE 1000ML BAG 1,000 ML IV PRN (16:34)
[2017-02-15] MEDS ORDERED: LIDOCAINE 1% PF 2 ML VIAL. NEB SCH (16:45)
[2017-02-15] MEDS ORDERED: DIALYSIS PATIENT. MC PRN ×2 (16:45)
[2017-02-15] MEDS ORDERED: LIDOCAINE 1% PF 2 ML VIAL. ONE (17:00)
[2017-02-15] MEDS: LISINOPRIL 40 MG TABLET. PO SCH ×2 (21:00→21:40)
[2017-02-15] MEDS ORDERED: INSULIN DETEMIR 300 UNITS/3 ML INSULN.PEN. SQ SCH (21:00)
[2017-02-15] MEDS: PANTOPRAZOLE 40 MG TABLET.DR. PO SCH (21:38)
[2017-02-15] MEDS: FOLIC/VIT B COMP W-C (RENAL) TABLET. PO SCH (21:38)
[2017-02-15] MEDS: amLODIPine BESYLATE 10 MG TABLET PO SCH (21:41)
--- NOTE | 2017-02-15 22:00 | CONS ---
DATE OF CONSULTATION: PRIMARY PHYSICIAN: Dr. Virginia Butts. REASON FOR CONSULTATION: ESRD, dialysis. HISTORY OF PRESENT ILLNESS: The patient is a 56-year-old -[place] female followed by Dr. Wu for ESRD dialysis needs. She was at outpatient dialysis on her usual Sunday, , Sunday schedule. She has had about a week of nausea, vomiting. She has been vomiting up to 7 times a day, throws up medications including antihypertensives. She does not know what is causing it. She denies being constipated. She was then sent to the ER for further evaluation and we were asked to see her for the same. She was admitted yesterday. Today is her regular dialysis day and we were asked to see her for the same. She was noted to be hypertensive in the ER at 197/131 and her hydralazine was given. She also has a right pleural effusion on chest x-ray. It is unclear to her or to me if her ____ and hypertension is due to inability to keep her medications down versus due to possible fluid overload. She claims she has been compliant with her dialysis. PAST MEDICAL HISTORY: Significant for ESRD, dialysis, hypertension, constipation, , diabetes. Previous tobacco use. Dialysis access surgeries. SOCIAL HISTORY: Denies alcohol or drug use. Lives by herself. She is known to have used tobacco in the past. FAMILY HISTORY: Negative for known kidney problems that she admits to. For rest of details see electronic records. CHEL MORFIN MD DR: LIS/kiran JOB#: [id number] / [id number]
[2017-02-15 23:00] VITALS: BP 157/51
[2017-02-16 03:00] VITALS: BP 143/49
[2017-02-16 07:00] VITALS: BP 183/57
[2017-02-16] MEDS: PANTOPRAZOLE 40 MG TABLET.DR. PO SCH (07:30)
[2017-02-16] MEDS: INSULIN ASPART 300 UNITS/3 ML INSULN.PEN SQ SCH ×2 (07:30→11:30)
[2017-02-16] MEDS: SEVELAMER CARBONATE 2.4 GM PACKET. PO SCH ×2 (08:12→12:19)
--- NOTE | 2017-02-16 10:25 | PDOC ---
SUBJECTIVE ROS ESRD Doing OK, better CVS: no Orthopnea, no CP RESP: no SOB, no CHO GI: no Nausea, no Vomiting : n Dysuria, zoe Urgency OBJECTIVE Vital Signs Vital Signs Date Time Temp Pulse Resp B/P (MAP) Pulse Ox O2 Delivery O2 Flow Rate FiO2 02/16/17 07:00 98.8 81 20 183/57 (99) 90 Room Air 98.8 02/15/17 23:00 2.0 I & 0 Intake and Output 02/16/17 07:00 Intake Total 590 ml Output Total 200 ml Balance 390 ml Intake Oral 590 ml Output Urine Total 200 ml # Voids 1 PHYSICAL EXAM Physical Exam General Appearance: Awake Alert Oriented x 3 In no Distress Eyes: VIsion Unchanged Conjunctiva Normal EN: No EN Drainage Mucous Memb. moist Neck: no JVD no JVP Supple no Thyromegaly CVS: S1 S2 no Murmur No Gallop No Rub no Edema Resp: no Rales no Rhonchi no Acc. Muscle use GI: BAS +ve NO Bruit Non Tender Non Distended : no CVA tenderness; no Suprapubic Tenderness DIAGNOSIS/ASSESSMENT Assessment & Plan ESRD: Current fluid and E-lyte status does not necessitate emergent need for dialysis. Will re-evaluate for dialysis in the am and continue on TTSat schedule. NV - delayed gastric emptying as noted ? Pl eff - Uf with HD; resp status is better today and rales have cleared Anemia: start Epogen when hgb < 10. Transfuse with next HD as needed. HTN: Current BP meds reviewed. See orders for changes. some lability. reval once home BP meds are restarted and challenge of d/wt Bone & Mineral: follow phos Discussed Plan of Care with Pt - OK to D/c from renal standpoint Problems: COMMENT/RELEVANT DATA Meds Current Medications Medications (Trade) Dose Ordered Sig/Anil Start Time Stop Time Status Last Admin Dose Admin Amlodipine Besylate (Norvasc) 10 mg DAILY 02/15/17 09:00 02/15/17 21:41 10 MG Aspirin (Children'S Aspirin) 81 mg DAILY 02/15/17 09:00 02/15/17 08:26 81 MG Clonidine HCl (Catapres) 0.3 mg QID 02/15/17 09:00 02/15/17 21:39 0.3 MG Docusate Sodium (Colace) 200 mg BID 02/15/17 09:00 02/15/17 21:40 200 MG Heparin Sodium (Porcine) 5,000 unit BID 02/15/17 09:00 02/15/17 08:39 5,000 UNIT Hydralazine HCl (Apresoline) 100 mg TID 02/15/17 09:00 02/15/17 21:38 100 MG Info (PHARMACY MONITORING -- do not chart) 1 each PRN DAILY PRN 02/15/17 16:45 Insulin Aspart (Novolog) 15 units TIDAC 02/15/17 16:30 02/16/17 07:30 15 UNITS Insulin Detemir (Levemir) 18 units QHS 02/15/17 21:00 02/15/17 22:02 18 UNITS Labetalol HCl (Normodyne) 10 mg PRN Q2HR PRN 02/15/17 09:00 Labetalol HCl (Trandate) 300 mg TID 02/15/17 09:00 02/15/17 21:37 300 MG Lidocaine HCl (Xylocaine-Mpf 1% Vial) 2 ml STK-MED ONCE 02/15/17 17:00 02/16/17 08:11 DC Lisinopril (Prinivil) 40 mg BID 02/15/17 09:00 02/15/17 21:40 40 MG Ondansetron HCl (Zofran) 4 mg PRN Q6HRS PRN 02/15/17 08:51 02/16/17 08:50 DC Pantoprazole Sodium (Protonix) 40 mg DAILYAC 02/15/17 09:00 02/16/17 07:30 40 MG Polyethylene Glycol (miraLAX PACKET) 17 gm DAILY 02/15/17 09:00 02/15/17 08:25 17 GM Promethazine HCl (Phenergan) 25 mg PRN Q6HRS PRN 02/14/17 23:15 Senna/Docusate Sodium (Senna Plus) 1 tab BID 02/15/17 09:00 02/15/17 21:41 1 TAB Sevelamer Carbonate (Renvela) 2.4 gm TIDWMEALS 02/15/17 08:00 02/16/17 08:12 2.4 GM Sodium Chloride 1,000 ml @ 1,000 mls/hr Q1H PRN 02/15/17 16:34 02/15/17 22:33 DC Vitamin B Complex/ Vitamin C (Olga-Jill) 1 tab DAILY 02/15/17 09:00 02/15/17 21:38 1 TAB Lab Laboratory Tests Test 02/15/17 11:29 02/15/17 15:37 02/15/17 21:52 02/16/17 07:05 Glucose (Fingerstick) 178 mg/dL (70-99) 192 mg/dL (70-99) 164 mg/dL (70-99) 156 mg/dL (70-99) CHEL MORFIN MD February 16, 2017 10:25
[2017-02-16 10:40] VITALS: BP 181/66
[2017-02-16] MEDS: DOCUSATE SODIUM 100 MG CAPSULE. PO SCH (10:53)
[2017-02-16] MEDS: SENNOSIDES/DOCUSATE 8.6/50MG TABLET. PO SCH (10:55)
[2017-02-16] MEDS: cloNIDine HCL 0.3 MG TABLET PO SCH ×2 (10:57→12:23)
[2017-02-16] MEDS: ASPIRIN CHEWABLE 81 MG TABLET. PO SCH (10:57)
[2017-02-16] MEDS: amLODIPine BESYLATE 10 MG TABLET PO SCH (10:58)
[2017-02-16] MEDS: POLYETHYLENE GLYCOL 3350 17 GM PACKET. PO SCH (10:59)
[2017-02-16] MEDS: LISINOPRIL 40 MG TABLET. PO SCH (10:59)
[2017-02-16] MEDS: FOLIC/VIT B COMP W-C (RENAL) TABLET. PO SCH (11:06)
[2017-02-16] MEDS: LABETALOL HCL 100 MG TABLET. PO SCH (11:06)
[2017-02-16] MEDS ORDERED: ONDA4TAB10 SL (11:11)
[2017-02-16] MEDS ORDERED: METO10TA81 PO (11:11)
--- NOTE | 2017-02-16 11:18 | PDOC3 ---
Discharge Summary Visit Information Date of Admission: February 14, 2017 Date of Discharge: February 16, 2017 Admitting Diagnosis Comment: 1 gastroparesis, markedly delayed NM test 2. DM 2 with good control Hgba1c 5 3. HTN urgency POA 4. morbid Obesity with mild pCM 5. ESRD on HD (TTHS) 6. Anemia of CKD Final Diagnosis Problems Medical Problems: (1) Nausea & vomiting Status: Acute Brief Hospital Course Allergies Allergies Coded Allergies Type Severity Reaction Last Updated Verified No Known Drug Allergies 09/29/16 No Vital Signs Vital Signs Date Time Temp Pulse Resp B/P (MAP) Pulse Ox O2 Delivery O2 Flow Rate FiO2 02/16/17 11:06 81 183/57 02/16/17 10:40 97.9 18 94 Room Air 97.9 02/15/17 23:00 2.0 Lab Results Laboratory Tests Test 02/14/17 20:00 02/14/17 20:30 02/14/17 23:13 02/15/17 02:50 White Blood Count 8.8 x10^3/uL (4.0-11.0) 7.9 x10^3/uL (4.0-11.0) Red Blood Count 4.02 x10^6/uL (3.50-5.40) 3.75 x10^6/uL (3.50-5.40) Hemoglobin 11.4 g/dL (12.0-15.5) 10.7 g/dL (12.0-15.5) Hematocrit 35.7 % (36.0-47.0) 33.1 % (36.0-47.0) Mean Corpuscular Volume 89 fL (79-100) 88 fL (79-100) Mean Corpuscular Hemoglobin 28 pg (25-35) 29 pg (25-35) Mean Corpuscular Hemoglobin Concent 32 g/dL (31-37) 32 g/dL (31-37) Red Cell Distribution Width 19.7 % (11.5-14.5) 19.9 % (11.5-14.5) Platelet Count 231 x10^3/uL (140-400) 216 x10^3/uL (140-400) Neutrophils (%) (Auto) 84 % (31-73) 72 % (31-73) Lymphocytes (%) (Auto) 8 % (24-48) 14 % (24-48) Monocytes (%) (Auto) 7 % (0-9) 13 % (0-9) Eosinophils (%) (Auto) 1 % (0-3) 1 % (0-3) Basophils (%) (Auto) 1 % (0-3) 1 % (0-3) Neutrophils # (Auto) 7.4 x10^3uL (1.8-7.7) 5.7 x10^3uL (1.8-7.7) Lymphocytes # (Auto) 0.7 x10^3/uL (1.0-4.8) 1.1 x10^3/uL (1.0-4.8) Monocytes # (Auto) 0.6 x10^3/uL (0.0-1.1) 1.0 x10^3/uL (0.0-1.1) Eosinophils # (Auto) 0.1 x10^3/uL (0.0-0.7) 0.1 x10^3/uL (0.0-0.7) Basophils # (Auto) 0.1 x10^3/uL (0.0-0.2) 0.1 x10^3/uL (0.0-0.2) Sodium Level 139 mmol/L (136-145) 139 mmol/L (136-145) Potassium Level 4.8 mmol/L (3.5-5.1) 5.0 mmol/L (3.5-5.1) Chloride Level 100 mmol/L (98-107) 100 mmol/L (98-107) Carbon Dioxide Level 29 mmol/L (21-32) 31 mmol/L (21-32) Anion Gap 10 (6-14) 8 (6-14) Blood Urea Nitrogen 38 mg/dL (7-20) 40 mg/dL (7-20) Creatinine 6.7 mg/dL (0.6-1.0) 7.3 mg/dL (0.6-1.0) Estimated GFR (Cockcroft-Gault) 7.7 6.9 BUN/Creatinine Ratio 6 (6-20) 5 (6-20) Glucose Level 202 mg/dL (70-99) 229 mg/dL (70-99) Calcium Level 8.7 mg/dL (8.5-10.1) 8.2 mg/dL (8.5-10.1) Total Bilirubin 0.6 mg/dL (0.2-1.0) 0.5 mg/dL (0.2-1.0) Aspartate Amino Transf (AST/SGOT) 19 U/L (15-37) 18 U/L (15-37) Alanine Aminotransferase (ALT/SGPT) 17 U/L (14-59) 18 U/L (14-59) Alkaline Phosphatase 78 U/L (46-116) 70 U/L (46-116) Troponin I Quantitative < 0.017 ng/mL (0.000-0.055) Total Protein 6.9 g/dL (6.4-8.2) 6.2 g/dL (6.4-8.2) Albumin 3.3 g/dL (3.4-5.0) 3.1 g/dL (3.4-5.0) Albumin/Globulin Ratio 0.9 (1.0-1.7) 1.0 (1.0-1.7) Lipase 134 U/L (73-393) Urine Collection Type U cath Urine Color Yellow Urine Clarity Clear Urine pH 7.5 Urine Specific [place] 1.015 Urine Protein >=300 mg/dL (NEG-TRACE) Urine Glucose (UA) 100 mg/dL (NEG) Urine Ketones (Stick) Trace mg/dL (NEG) Urine Blood Negative (NEG) Urine Nitrite Negative (NEG) Urine Bilirubin Negative (NEG) Urine Urobilinogen Dipstick 0.2 mg/dL (0.2 mg/dL) Urine Leukocyte Esterase Negative (NEG) Urine RBC 11-20 /HPF (0-2) Urine WBC 1-4 /HPF (0-4) Urine Squamous Epithelial Cells Few /LPF Urine Renal Epithelial Cells Few /LPF Urine Bacteria 0 /HPF (0-FEW) Urine Mucus Mod /LPF Glucose (Fingerstick) 165 mg/dL (70-99) Phosphorus Level 5.4 mg/dL (2.6-4.7) Magnesium Level 2.3 mg/dL (1.8-2.4) Thyroid Stimulating Hormone (TSH) 0.659 uIU/mL (0.358-3.74) Test 02/15/17 06:55 02/15/17 11:29 02/15/17 15:37 02/15/17 21:52 Glucose (Fingerstick) 196 mg/dL (70-99) 178 mg/dL (70-99) 192 mg/dL (70-99) 164 mg/dL (70-99) Test 02/16/17 07:05 Glucose (Fingerstick) 156 mg/dL (70-99) Laboratory Tests Test 02/15/17 11:29 02/15/17 15:37 02/15/17 21:52 02/16/17 07:05 Glucose (Fingerstick) 178 mg/dL (70-99) 192 mg/dL (70-99) 164 mg/dL (70-99) 156 mg/dL (70-99) Brief Hospital Course Ms. Rojas is a 56 old AA female known DM for many yrs but has good control hgba1c only 5, ESRD on HD TTHSA from Dm and HTN, admitted for emesis, nausea. GET done shows mrkedly delayed results, Educated on GAstroparesis, RX for zofran and reglan prn,. BP runs high, Dr. Malcolm manages BP while on HD - gets clonidine prn Pt seen and examined Dw RN and renal Proc: GET Discharge Information Condition at Discharge: Improved, Stable Disposition/Orders: D/C to Home Scheduled Amlodipine Besylate (Amlodipine Besylate), 10 MG PO DAILY, (Reported) Aspirin (Aspirin), 81 MG PO DAILY, (Reported) Clonidine Hcl (Clonidine Hcl), 0.3 MG PO QID, (Reported) Clopidogrel Bisulfate (Plavix), 75 MG PO DAILY, (Reported) Docusate Sodium (Colace), 200 MG PO BID, (Reported) Folic Acid/Vitamin B Comp W-C (Nephro-Jill Tablet), 0.8 MG PO DAILY, (Reported) Hydralazine Hcl (Hydralazine Hcl), 100 MG PO TID, (Reported) Insulin Detemir (Levemir), 18 UNIT SQ QHS, (Reported) Labetalol Hcl (Labetalol Hcl), 1 TAB PO TID, (Reported) Lisinopril (Lisinopril), 40 MG PO BID, (Reported) Polyethylene Glycol 3350 (Miralax), 17 GM PO DAILY, (Reported) Sennosides/Docusate Sodium (Senna-Time S Tablet), 1 TAB PO BID Sevelamer Carbonate (Renvela), 2.4 GM PO TIDWMEALS, (Reported) Scheduled PRN Promethazine Hcl (Promethazine Hcl), 25 MG PO Q6H PRN for NAUSEA/VOMITING Miscellaneous Medications Insulin Aspart (Novolog Flexpen), 0 SQ, (Reported) Discontinued Medications Sevelamer Carbonate (Renvela), 2.4 GM PO TIDWMEALS, (Reported) FEDERICO GODOY MD February 16, 2017 11:18
[2017-02-16] MEDS: HEPARIN PF for SUB-Q USE 5,000 UNIT/0.5 ML VIAL. SQ SCH (11:19)
[2017-02-16] MEDS ORDERED: ONDANSETRON ODT 4 MG TAB.RAPDIS. PO PRN (12:00)
--- NOTE | 2017-02-16 12:14 | PDOC ---
Subjective: Subjective: Feeling better, tolerating PO but having some nausea. (No vomiting.) Says DC after lunch. Objective: Vital Signs: Vital Signs Date Time Temp Pulse Resp B/P (MAP) Pulse Ox O2 Delivery O2 Flow Rate FiO2 02/16/17 11:06 81 183/57 02/16/17 10:40 97.9 18 94 Room Air 97.9 02/15/17 23:00 2.0 Labs: Laboratory Tests Test 02/15/17 15:37 02/15/17 21:52 02/16/17 07:05 02/16/17 11:45 Glucose (Fingerstick) 192 mg/dL 164 mg/dL 156 mg/dL 45 mg/dL Imaging: GES 02/15/17 Imaging performed out to one hour showed very little gastric emptying. The time/ activity curve is relatively flat. The T1/2 was calculated at 645 minutes. IMPRESSION: Markedly delayed gastric emptying. PE: GEN: NAD, up to chair LUNGS: CTAB HEART: RRR ABD: BS+, non-tender, soft NEURO/PSYCH: A & O 3 A/P: Gastroparesis, DM N/v, early satiety - improved Reflux -on PPI -- Discussed trial of gastroparesis diet. If no improvement, follow-up w/ Dr. Jones to discuss trial of Reglan, ?EGD. Also needs screening colonoscopy. ABBEY AYON February 16, 2017 12:14
[2017-02-16 12:23] VITALS: BP 183/57
== END 2017-02-16 15:21 | disposition home or self-care (01) | DRG 682 ==
LOC: ER 19:24 → 6 SOUTH 21:53
PROVIDERS: ADMIT Internal Medicine; ATTEND Internal Medicine
DX: I12.0 Hypertensive chronic kidney disease with stage 5 chronic kidney disease or end stage renal disease (principal); N18.6 End stage renal disease; E44.1 Mild protein-calorie malnutrition; Z68.42 Body mass index [BMI] 45.0-49.9, adult; J90 Pleural effusion, not elsewhere classified; E11.43 Type 2 diabetes mellitus with diabetic autonomic (poly)neuropathy; K31.84 Gastroparesis; E66.01 Morbid (severe) obesity due to excess calories; K30 Functional dyspepsia; R68.81 Early satiety; D63.1 Anemia in chronic kidney disease; E11.22 Type 2 diabetes mellitus with diabetic chronic kidney disease; I16.0 Hypertensive urgency; K21.9 Gastro-esophageal reflux disease without esophagitis; Z87.891 Personal history of nicotine dependence; Z99.2 Dependence on renal dialysis; Z98.891 History of uterine scar from previous surgery
CPT/HCPCS: 36415; 71010; 74020; 78264; 80053; 81001; 82947; 83036; 83690; 83735; 84100; 84443; 84484; 85027; 93005; 96374; 96375; A9541; J0360; J1815; J2405; J3490; 99285-25

== ENCOUNTER 2017-03-30 18:29 | Inpatient (IN) | payer MEDICARE, OTHER ==
[~2017-03-30] VITALS: Ht 154.9 cm; Wt 114.3 kg
[~2017-03-30 18:29] MED LIST changes: +ASPI-630 PO; -ASPI81TA2 PO; -CLOP75TA27 PO; +CLOP75TA57 PO; +DOCU-109 PO; -DOCU-27 PO; -INSU100V10 SQ; +INSU100V11 SQ; +LABE300T PO; +METO10TA81 PO; +ONDA4TAB10 SL
[2017-03-30] MEDS ORDERED: IPRATRPIUM/ALBUTEROL 0.5/2.5MG 3 ML NEBU. NEB ONE (19:00)
[2017-03-30 19:28] LABS: BASO % 0 % (0-3); EOS % 3 % (0-3); HEMATOCRIT 34.8 % (36.0-47.0); HEMOGLOBIN 11.3 g/dL (12.0-15.5); LYMPH # 1.1 x10^3/uL (1.0-4.8); LYMPH % 14 % (24-48); MEAN CORPUSCULAR HEMOGLOBIN 29 pg (25-35); MEAN CORPUSCULAR HGB CONC 32 g/dL (31-37); MEAN CORPUSCULAR VOLUME 90 fL (79-100); MONO % 12 % (0-9); NEUT % 72 % (31-73); PLATELET COUNT 236 x10^3/uL (140-400); RED BLOOD COUNT 3.87 x10^6/uL (3.50-5.40); RED CELL DISTRIBUTION WIDTH 19.8 % (11.5-14.5); WHITE BLOOD COUNT 8.1 x10^3/uL (4.0-11.0)
--- NOTE | 2017-03-30 19:41 | PHYS DOC ---
Past Medical History Past Medical History: Diabetes-Type II, DVT, Hypertension, Renal Failure, Other Additional Past Medical Histor: HEMODIAYLSIS Past Surgical History: , Other Additional Past Surgical Histo: dialysis shunt right upper arm-removed, Dialysis shunt L upper arm, Vascath Additional Information: 1 PPD Alcohol Use: None Drug Use: None Adult General Chief Complaint Chief Complaint: SHORTNESS OF BREATH HPI HPI Patient is a 56 year old female who presents with shortness of air. Chest heaviness started approx 45 min ago after walking out of the theater. Hx of ESRD and last dialysis was yesterday. PT states the heaviness is 3/10 and associated with SOA, nausea, no diaphoresis. Pt states yesterday at dialysis that they took off the normal amount of fluid. Hx of smoking and per family was told in September that she needed home O2 but didnt elect to get because currently still smoking. Review of Systems Review of Systems Constitutional: Denies fever or chills [] Eyes: Denies change in visual acuity, redness, or eye pain [] HENT: Denies nasal congestion or sore throat [] Respiratory: Denies cough Cardiovascular: No additional information not addressed in HPI GI: Denies abdominal pain, nausea, vomiting, bloody stools or diarrhea : Denies dysuria or hematuria Musculoskeletal: Denies back pain or joint pain Integument: Denies rash or skin lesions Neurologic: Denies headache, focal weakness or sensory changes Endocrine: Denies polyuria or polydipsia Current Medications Current Medications Current Medications Medications (Trade) Dose Ordered Sig/Anil Start Time Stop Time Status Last Admin Dose Admin Albuterol/ Ipratropium (Duoneb) 3 ml 1X ONCE 03/30/17 19:00 03/30/17 19:03 DC 03/30/17 19:14 3 ML Allergies Allergies Allergies Coded Allergies Type Severity Reaction Last Updated Verified No Known Drug Allergies 09/29/16 No Physical Exam Physical Exam Constitutional: Well developed, well nourished, no acute distress, non-toxic appearance. [] HENT: Normocephalic, atraumatic, bilateral external ears normal, oropharynx moist, no oral exudates, nose normal. [] Eyes: PERRLA, EOMI, conjunctiva normal, no discharge. [] Neck: Normal range of motion, no tenderness, supple, no stridor. [] Cardiovascular:Heart rate regular rhythm, no murmur [] Lungs & Thorax: Bilateral breath sounds clear to auscultation [] Abdomen: Bowel sounds normal, soft, no tenderness, no masses, no pulsatile masses. [] Skin: Warm, dry, no erythema, no rash. [] Back: No tenderness, no CVA tenderness. [] Extremities: No tenderness, no cyanosis, no clubbing, ROM intact, no edema. [] Neurologic: Alert and oriented X 3, normal motor function, normal sensory function, no focal deficits noted. [] Psychologic: Affect normal, judgement normal, mood normal. [] Current Patient Data Vital Signs Vital Signs Date Time Temp Pulse Resp B/P (MAP) Pulse Ox O2 Delivery O2 Flow Rate FiO2 03/30/17 19:45 16 216/80 (125) 99 Nasal Cannula 4.0 03/30/17 18:41 98.1 88 98.1 Lab Values Laboratory Tests Test 03/30/17 19:05 03/30/17 20:20 White Blood Count 8.1 x10^3/uL (4.0-11.0) Red Blood Count 3.87 x10^6/uL (3.50-5.40) Hemoglobin 11.3 g/dL (12.0-15.5) L Hematocrit 34.8 % (36.0-47.0) L Mean Corpuscular Volume 90 fL (79-100) Mean Corpuscular Hemoglobin 29 pg (25-35) Mean Corpuscular Hemoglobin Concent 32 g/dL (31-37) Red Cell Distribution Width 19.8 % (11.5-14.5) H Platelet Count 236 x10^3/uL (140-400) Neutrophils (%) (Auto) 72 % (31-73) Lymphocytes (%) (Auto) 14 % (24-48) L Monocytes (%) (Auto) 12 % (0-9) H Eosinophils (%) (Auto) 3 % (0-3) Basophils (%) (Auto) 0 % (0-3) Neutrophils # (Auto) 5.9 x10^3uL (1.8-7.7) Lymphocytes # (Auto) 1.1 x10^3/uL (1.0-4.8) Monocytes # (Auto) 0.9 x10^3/uL (0.0-1.1) Eosinophils # (Auto) 0.2 x10^3/uL (0.0-0.7) Basophils # (Auto) 0.0 x10^3/uL (0.0-0.2) D-Dimer (Amy) 1.21 ug/mlFEU (0.00-0.50) H Sodium Level 141 mmol/L (136-145) Potassium Level 4.3 mmol/L (3.5-5.1) Chloride Level 107 mmol/L (98-107) Carbon Dioxide Level 24 mmol/L (21-32) Anion Gap 10 (6-14) Blood Urea Nitrogen 31 mg/dL (7-20) H Creatinine 6.4 mg/dL (0.6-1.0) H Estimated GFR (Cockcroft-Gault) 8.1 BUN/Creatinine Ratio 5 (6-20) L Glucose Level 224 mg/dL (70-99) H Calcium Level 8.4 mg/dL (8.5-10.1) L Total Bilirubin 0.5 mg/dL (0.2-1.0) Aspartate Amino Transferase (AST) 13 U/L (15-37) L Alanine Aminotransferase (ALT) 18 U/L (14-59) Alkaline Phosphatase 83 U/L (46-116) Creatine Kinase 229 U/L (26-192) H Creatine Kinase MB (Mass) 1.1 ng/mL (0.0-3.6) Creatine Kinase MB Relative Index 0.5 % (0-4) Troponin I Quantitative < 0.017 ng/mL (0.000-0.055) HH-Bik-F-Type Natriuretic Peptide 3240 pg/mL (0-124) H Total Protein 6.6 g/dL (6.4-8.2) Albumin 3.4 g/dL (3.4-5.0) Albumin/Globulin Ratio 1.1 (1.0-1.7) Laboratory Tests 03/30/17 19:05 Laboratory Tests 03/30/17 20:20 EKG EKG EKG---sinus rhythm no STEMI[] Radiology/Procedures Radiology/Procedures PATIENT: OLIVE ROBERTS ACCOUNT: [id number] : 1960 LOCATION: [address] [place] [address] AGE: 56 SEX: F EXAM STATUS: ADM IN ORD. PHYSICIAN: JOSEFA MARAVILLA MD REASON: dyspnea PROCEDURE: PORTABLE CHEST 1V EXAM: Chest one view. HISTORY: Dyspnea. COMPARISON: 02/14/2017. FINDINGS: A frontal view of the chest is obtained. There are mild opacities in the right base suggesting a posteriorly layering small pleural effusion with post atelectasis or edema. There is no pneumothorax. The heart is moderately enlarged. A stent is noted in the right axilla. IMPRESSION: 1. Moderate cardiomegaly. Suspect a small posteriorly layering right pleural effusion. DICTATED and SIGNED BY: CATINA BAUER MD DATE: 03/31/17 0855 CC: JOSEFA MARAVILLA MD; PETE TILLMAN APRN; JULIANNA CHRIS MD ~ ORDERED VQ SCAN BECAUSE OF ELEVATED DDIMER AND IS PENDING Impressions: 1. ACUTE DYSPNEA WITH HYPOXIA 2. CHEST PAIN 3. ESRD Course & Med Decision Making Course & Med Decision Making Pertinent Labs and Imaging studies reviewed. (See chart for details) PT WITH DYSPNEA AND CHEST HEAVINESS WITH CARDIAC RISK FACTORS POSSIBLE ACS VS PE VS CHF CALLED NEPHROLOGY [employer] AND AWARE PT BEING ADMITTED AND WILL NEED DIALYSIS IN AM WILL ADMIT TO TELE WITH SERIAL TROPONINS AND GET VQ SCAN Dragon Disclaimer Dragon Disclaimer This electronic medical record was generated, in whole or in part, using a voice recognition dictation system. Departure Departure Referrals: PETE TILLMAN APRN (PCP) JOSEFA MARAVILLA MD Mar 30, 2017 19:41
[2017-03-30 20:46] LABS: CALCIUM 8.4 mg/dL (8.5-10.1); CREATININE 6.4 mg/dL (0.6-1.0); GFR 8.1; POTASSIUM 4.3 mmol/L (3.5-5.1)
[2017-03-30 20:52] LABS: ALBUMIN 3.4 g/dL (3.4-5.0); ALBUMIN/GLOBULIN RATIO 1.1 (1.0-1.7); TOTAL BILIRUBIN 0.5 mg/dL (0.2-1.0); TOTAL PROTEIN 6.6 g/dL (6.4-8.2)
[2017-03-30 21:02] LABS: CKMB MASS 1.1 ng/mL (0.0-3.6)
[2017-03-30] MEDS ORDERED: ONDANSETRON PF 4 MG/2 ML VIAL. IV PRN (22:00)
[2017-03-30 22:30] VITALS: BP 215/74
[2017-03-30 23:00] VITALS: BP 201/67
[2017-03-30] MEDS ORDERED: METO10TA81 PO (23:45)
[2017-03-30] MEDS ORDERED: PROMETHAZINE 12.5 MG TABLET. PO PRN (23:45)
[2017-03-30] MEDS ORDERED: ONDA4TAB10 PO (23:45)
[2017-03-31] VITALS (15 sets, daily range): BP systolic 141–191; BP diastolic 47–79
[2017-03-31] MEDS ORDERED: ACETAMINOPHEN 325 MG TABLET. PO PRN
[2017-03-31] MEDS ORDERED: ONDANSETRON ODT 4 MG TAB.RAPDIS. PO PRN
[2017-03-31] MEDS ORDERED: ONDANSETRON PF 4 MG/2 ML VIAL. IV PRN
[2017-03-31] MEDS ORDERED: HYDROcodone/APAP 5/325MG 1 TAB TABLET PO PRN
[2017-03-31] MEDS ORDERED: hydrALAZINE 20 MG/ML VIAL. IVP PRN
[2017-03-31] MEDS ORDERED: ALBUTEROL SULFATE 2.5 MG/3 ML NEBU. NEB PRN
[2017-03-31] MEDS ORDERED: METOCLOPRAMIDE 5 MG TABLET. PO PRN (00:15)
[2017-03-31] MEDS ORDERED: DEXTROSE 50% 25 GM / 50ML DISP.SYRIN. IV PRN ×2 (00:15)
[2017-03-31] MEDS ORDERED: HEPARIN for IV BOLUS 10,000 UNIT/10 ML VIAL. IV PRN ×2 (00:15)
[2017-03-31] MEDS ORDERED: HEPARIN 25,000UTS/500ML PREMIX 500 ML IV PRN (00:15)
[2017-03-31] MEDS ORDERED: hydrALAZINE 20 MG/ML VIAL. IVP ONE (00:30)
[2017-03-31] MEDS: INSULIN ASPART 300 UNITS/3 ML INSULN.PEN SQ SCH ×7 (00:30→17:00)
--- NOTE | 2017-03-31 00:35 | RAD ---
VQ Scan: Clinical History: Dyspnea, chest pain. Technique: 37 mCi of xenon-133 was administered as an aerosol and spot views were obtained on a gamma camera for a Nuclear Medicine ventilation examination. 5.5 mCi of Tc 99m MAA was administered intravenously and spot views were obtained on the gamma camera for a Nuclear Medicine perfusion examination. Static images were reviewed as a V/Q scan . Findings: Mild retention of radiotracer identified on the washout phase images likely due to airway disease. Nonsegmental matched defects identified in the left lung. No evidence of perfusion segment of mismatch identified. Impression: Low probability for pulmonary embolism. If clinical suspicion persists ultrasound bilateral lower extremity venous duplex can be considered. Electronically signed by: Diony Fernandez MD (03/31/2017 12:32 AM)
--- NOTE | 2017-03-31 01:49 | ACF ---
Admission Forms Criteria HYPERTENSION Clinical Indications for Admission to Inpatient Care ( Place "X" for any and all applicable criteria): Admission is indicated for 1 or more of the following(1)(2)(3)(4)(5)(6)(7)(8)(9) (10): [ ]I. Hypertensive emergency, with evidence of acute and progressing target organ disease as indicated by 1 or more of the following: [ ]a) Hypertensive encephalopathy (eg, confusion, altered mental status) [ ]b) Cerebral infarction [ ]c) Intracranial hemorrhage [ ]d) Myocardial ischemia or infarction [ ]e) Heart failure (eg. Pulmonary edema) [ ]f) Aortic dissection [ ]g) Increased creatinine (new) with reduction of more than 50% in estimated glomerular filtration rate from baseline [ ]h) Seizure [ ]i) Papilledema [ ]j) Retinal hemorrhage [ ]k) Microangiopathic hemolytic anemia [ ]l) Other significant finding secondary to hypertension [ ]II. Adrenergic or sympathomimetic crisis (eg, severe hypertension due to pheochromocytoma crisis, cocaine or amphetamine intoxication, or clonidine withdrawal) [X]III. Severe hypertension (SBP greater than 180 mmHg or DBP greater than 110 mmHg or greater than the 95th percentile for age, gender, and height in pediatric patients) that cannot be controlled (eg, to SBP less than 160 mmHg and DBP less than 100 mmHg in adults) by treatment with oral medication in emergency department or observation care Extended stay beyond goal length of stay may be needed for(11)(12)(13): [ ]a) Persistent hypertensive encephalopathy [ ]b) Continuation of pulmonary edema [ ]c) Recurring or persistent severe hypertension [ ]d) Target organ damage (eg, angina, stroke, aortic dissection) The original [employer] content created by [employer] has been revised. The portions of the content which have been revised are identified through the use of italic text, and [email or web address] has neither reviewed nor approved the modified material. All other unmodified content is copyright [employer]. Please see references footnoted in the original [employer] edition 2014 Admission Criteria Met?: Yes KELECHI ALARCON Mar 31, 2017 01:49
[2017-03-31] MEDS ORDERED: ANTI-COAG MONITOR BY PHARMACY. MC PRN (02:30)
[2017-03-31 05:00] LABS: BASO # 0.1 x10^3/uL (0.0-0.2); BASO % 1 % (0-3); EOS % 2 % (0-3); HEMATOCRIT 34.2 % (36.0-47.0); HEMOGLOBIN 10.9 g/dL (12.0-15.5); LYMPH # 1.1 x10^3/uL (1.0-4.8); LYMPH % 12 % (24-48); MEAN CORPUSCULAR HEMOGLOBIN 29 pg (25-35); MEAN CORPUSCULAR HGB CONC 32 g/dL (31-37); MEAN CORPUSCULAR VOLUME 91 fL (79-100); MONO % 11 % (0-9); NEUT % 75 % (31-73); PLATELET COUNT 227 x10^3/uL (140-400); RED BLOOD COUNT 3.78 x10^6/uL (3.50-5.40); RED CELL DISTRIBUTION WIDTH 20.1 % (11.5-14.5)
[2017-03-31 05:47] LABS: CALCIUM 8.2 mg/dL (8.5-10.1); CREATININE 6.9 mg/dL (0.6-1.0); GFR 7.4; POTASSIUM 4.5 mmol/L (3.5-5.1)
[2017-03-31] MEDS: IPRATRPIUM/ALBUTEROL 0.5/2.5MG 3 ML NEBU. NEB SCH ×4 (07:11→20:13)
[2017-03-31] MEDS ORDERED: INSULIN ASPART 300 UNITS/3 ML INSULN.PEN SQ SCH (08:00)
[2017-03-31] MEDS: LABETALOL HCL 200 MG TABLET PO SCH ×4 (08:07→20:35)
[2017-03-31] MEDS: DOCUSATE SODIUM 100 MG CAPSULE. PO SCH ×2 (08:07→20:34)
[2017-03-31] MEDS: ASPIRIN CHEWABLE 81 MG TABLET. PO SCH (08:08)
[2017-03-31] MEDS: LISINOPRIL 40 MG TABLET. PO SCH ×2 (08:08→20:34)
[2017-03-31] MEDS: amLODIPine BESYLATE 10 MG TABLET PO SCH (08:09)
[2017-03-31] MEDS: cloNIDine HCL 0.3 MG TABLET PO SCH ×4 (08:19→20:34)
[2017-03-31] MEDS: SEVELAMER CARBONATE 2.4 GM PACKET. PO SCH ×3 (08:37→18:49)
--- NOTE | 2017-03-31 08:46 | PDOC2 ---
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 Reports that she has been having SOA mainly with ambulation in the last 2 weeks. This has increased significantly in the last few days. Notable for decreased appetite, increased leg swelling, orthopnea. No recorded fevers or chills. When she walks she feels SOA and also has some brief chest tightness and wheeze but better when she sits and no pressure or radiating discomfort to her jaw or arms or back. Reports continued smoking, no prior hx of VTE. She is compliant with her antiHTN but her BP has been uncontrolled. She has HD TTHS and Thurs her SBP was 190 accdg to her and unfortunately she does not check her BP at home. She does have DM2 with insulin use and verbalized A1C 2-3 months ago at 5.5. Denies any sudafed use, recreational drugs, excessive Na intake nor excessive fluid intake. Denies any prior CAD, CVA. She did have some nausea yesterday but this usually occurs after HD which is usual for her but no palpitations nor diaphoresis. No routine exercises. Not requiring any O2 at home and no inhalers but currently at 4 LPM. PAST MEDICAL HISTORY Cardiovascular: HTN, Hyperlipidemia Pulmonary: Other (chornic tobaccoism, no past notation of COPD) CENTRAL NERVOUS SYSTEM: Vertigo GI: Constipation, GERD Heme/Onc: Anemia NOS Hepatobiliary: No pertinent hx Psych: No pertinent hx Musculoskeletal: Osteoarthritis, Other (morbid obesity) Rheumatologic: No pertinent hx Infectious disease: No pertinent hx ENT: Allergic Rhinitis, Other Renal/: Chronic renal failure (ESRD with HD) Endocrine: Diabetes (2) Dermatology: No pertinent hx PAST SURGICAL HISTORY Past Surgical History , AV graft placement/removal for HD to RA and PD, New 09/2016 LA AV graft FAMILY HISTORY Family History noncontributory to CAD Family History: Diabetes SOCIAL HISTORY Smoke: 1 pack per day (1ppd ) ALCOHOL: rare Drugs: None CURRENT MEDICATIONS CURRENT MEDICATIONS Current Medications Medications (Trade) Dose Ordered Sig/Anil Route PRN Reason Start Time Stop Time Status Last Admin Dose Admin Albuterol/ Ipratropium (Duoneb) 3 ml 1X ONCE NEB 03/30/17 19:00 03/30/17 19:03 DC 03/30/17 19:14 Albuterol/ Ipratropium (Duoneb) 3 ml RTQID NEB 03/31/17 08:00 04/01/17 07:59 03/31/17 07:11 Albuterol Sulfate (Ventolin Neb Soln) 2.5 mg PRN Q4HRS PRN NEB SHORTNESS OF BREATH 03/31/17 00:00 03/31/17 04:17 Nicardipine HCl 50 mg/Sodium Chloride 270 ml @ 0 mls/hr CONT PRN IV SEE I/O RECORD 03/31/17 00:00 03/31/17 03:14 Hydralazine HCl (Apresoline) 20 mg 1X ONCE IVP 03/31/17 00:30 03/31/17 00:31 DC 03/31/17 00:45 Info (Anti-Coagulation Monitoring By Pharmacy) 1 each PRN DAILY PRN MC SEE COMMENTS 03/31/17 02:30 03/31/17 06:44 ALLERGIES ALLERGIES: Coded Allergies: No Known Drug Allergies (Unverified , 09/29/16) ROS Review of System 14 point ROS evaluated with pertinent positives noted per HPI PHYSICAL EXAM General: Alert, Oriented X3, Cooperative, No acute distress HEENT: Atraumatic, Mucous membr. moist/pink Lungs: Other (diminished with bibasilar crackles) Heart: Regular rate (SR), Normal S1, Normal S2, Other (S4; 3/6 systolic murmur to LLS border and CAMI border) Abdomen: Soft, No tenderness, Other (morbid obesity) Extremities: No cyanosis, Other (2+ bilateral LE pitting edema; neg homans; LA AV graft + for thrill and bruit) Skin: No breakdown, No significant lesion Neuro: Normal speech, Sensation intact Psych/Mental Status: Mental status NL, Mood NL MUSCULOSKELETAL: Osteoarthritic changes both hands VITALS VITALS Vital Signs Date Time Temp Pulse Resp B/P (MAP) Pulse Ox O2 Delivery O2 Flow Rate FiO2 03/31/17 07:11 97 Nasal Cannula 4.0 03/31/17 06:30 83 170/70 (103) 03/31/17 03:00 98.7 98.7 03/30/17 22:30 24 LABS Lab: Laboratory Tests Test 03/30/17 19:05 03/30/17 20:20 03/31/17 00:42 03/31/17 02:00 White Blood Count 8.1 x10^3/uL (4.0-11.0) 9.0 x10^3/uL (4.0-11.0) Red Blood Count 3.87 x10^6/uL (3.50-5.40) 3.78 x10^6/uL (3.50-5.40) Hemoglobin 11.3 g/dL (12.0-15.5) 10.9 g/dL (12.0-15.5) Hematocrit 34.8 % (36.0-47.0) 34.2 % (36.0-47.0) Mean Corpuscular Volume 90 fL (79-100) 91 fL (79-100) Mean Corpuscular Hemoglobin 29 pg (25-35) 29 pg (25-35) Mean Corpuscular Hemoglobin Concent 32 g/dL (31-37) 32 g/dL (31-37) Red Cell Distribution Width 19.8 % (11.5-14.5) 20.1 % (11.5-14.5) Platelet Count 236 x10^3/uL (140-400) 227 x10^3/uL (140-400) Neutrophils (%) (Auto) 72 % (31-73) 75 % (31-73) Lymphocytes (%) (Auto) 14 % (24-48) 12 % (24-48) Monocytes (%) (Auto) 12 % (0-9) 11 % (0-9) Eosinophils (%) (Auto) 3 % (0-3) 2 % (0-3) Basophils (%) (Auto) 0 % (0-3) 1 % (0-3) Neutrophils # (Auto) 5.9 x10^3uL (1.8-7.7) 6.8 x10^3uL (1.8-7.7) Lymphocytes # (Auto) 1.1 x10^3/uL (1.0-4.8) 1.1 x10^3/uL (1.0-4.8) Monocytes # (Auto) 0.9 x10^3/uL (0.0-1.1) 1.0 x10^3/uL (0.0-1.1) Eosinophils # (Auto) 0.2 x10^3/uL (0.0-0.7) 0.2 x10^3/uL (0.0-0.7) Basophils # (Auto) 0.0 x10^3/uL (0.0-0.2) 0.1 x10^3/uL (0.0-0.2) D-Dimer (Amy) 1.21 ug/mlFEU (0.00-0.50) Sodium Level 141 mmol/L (136-145) 141 mmol/L (136-145) Potassium Level 4.3 mmol/L (3.5-5.1) 4.5 mmol/L (3.5-5.1) Chloride Level 107 mmol/L (98-107) 106 mmol/L (98-107) Carbon Dioxide Level 24 mmol/L (21-32) 21 mmol/L (21-32) Anion Gap 10 (6-14) 14 (6-14) Blood Urea Nitrogen 31 mg/dL (7-20) 32 mg/dL (7-20) Creatinine 6.4 mg/dL (0.6-1.0) 6.9 mg/dL (0.6-1.0) Estimated GFR (Cockcroft-Gault) 8.1 7.4 BUN/Creatinine Ratio 5 (6-20) Glucose Level 224 mg/dL (70-99) 249 mg/dL (70-99) Calcium Level 8.4 mg/dL (8.5-10.1) 8.2 mg/dL (8.5-10.1) Total Bilirubin 0.5 mg/dL (0.2-1.0) Aspartate Amino Transf (AST/SGOT) 13 U/L (15-37) Alanine Aminotransferase (ALT/SGPT) 18 U/L (14-59) Alkaline Phosphatase 83 U/L (46-116) Creatine Kinase 229 U/L (26-192) Creatine Kinase MB (Mass) 1.1 ng/mL (0.0-3.6) Creatine Kinase MB Relative Index 0.5 % (0-4) Troponin I Quantitative < 0.017 ng/mL (0.000-0.055) < 0.017 ng/mL (0.000-0.055) ON-Mnh-M-Type Natriuretic Peptide 3240 pg/mL (0-124) Total Protein 6.6 g/dL (6.4-8.2) Albumin 3.4 g/dL (3.4-5.0) Albumin/Globulin Ratio 1.1 (1.0-1.7) Glucose (Fingerstick) 169 mg/dL (70-99) ECHOCARDIOGRAM ECHOCARDIOGRAM <Conclusion> The left ventricular systolic function is normal. The Ejection Fraction is 55-60 %. There is normal LV segmental wall motion. The left atrium is borderline dilated. Doppler and Color-flow revealed mild mitral regurgitation. Doppler and Color Flow revealed trace tricuspid regurgitation. The PA pressure was estimated at 30 mmHg. The IVC is normal in size and collapses >50% with inspiration. There is no evidence of significant pericardial effusion. DATE: 01/26/14 1710 STRESS TEST STRESS TEST Conclusion 1. Regadenoson cardioisotope stress test did not show any evidence of ischemia or infarct 2. Normal left ventricular systolic function with ejection fraction calculated at 73% 3. Low annual risk for cardiovascular events DATE: 01/27/14 1538 ASSESSMENT/PLAN ASSESSMENT/PLAN 1. Acute on chronic diastolic CHF: likely mainly induced by uncontrolled HTN 2. Chest tightness: likely from bronchospasm. V/Q neg. Doubt ACS. Troponin series normal, EKG NSR. 3. HTN: labile 4. DM2: 2-3 mo ago A1C per pt 5.5 5. ESRD 6. Morbid obesity: suspecting RONAK 7. 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 Further cardiac w/u pending TTE result 2. HD for fluid off loading due for today 3. Will titrate off cardene and resume home cardiac meds and will uptitrate as warranted. 4. Lifestyle modification with smoking cessation 5. TSH, lipid panel 6. Start on ECASA 81 mg. Would recommend statin per lipid levels. Problems: RACHELL JACKMAN MD 03/31/17 1601: CARDIAC CONSULT ALLERGIES ALLERGIES: Coded Allergies: No Known Drug Allergies (Unverified , 09/29/16) ASSESSMENT/PLAN ASSESSMENT/PLAN Patient seen and examined. Agree with RECORDIST CHIEF's assessment and plan. Acute on chronic diastolic heart failure precipitated by accelerated hypertension. Continue fluid removal with hemodialysis per nephrology team. Check 2-D echo to assess LV systolic function. Continue to titrate oral antihypertensives and cleaned Cardene off. Thank you for your consultation. Problems: DES SAEED APRN Mar 31, 2017 08:46 RACHELL JACKMAN MD Mar 31, 2017 16:01
--- NOTE | 2017-03-31 08:59 | RAD ---
EXAM: Chest one view. HISTORY: Dyspnea. COMPARISON: 02/14/2017. FINDINGS: A frontal view of the chest is obtained. There are mild opacities in the right base suggesting a posteriorly layering small pleural effusion with post atelectasis or edema. There is no pneumothorax. The heart is moderately enlarged. A stent is noted in the right axilla. IMPRESSION: 1. Moderate cardiomegaly. Suspect a small posteriorly layering right pleural effusion.
[2017-03-31 09:15] LABS: INR 1.1 (0.8-1.1); PROTHROMBIN TIME PATIENT 13.4 SEC (11.7-14.0)
--- NOTE | 2017-03-31 10:32 | PDOC2 ---
CONSULT Date of Consult Date of Consult DATE: 03/31/17 TIME: 10:27 Reason for Consult Reason for Consult: ESRD AND SOB Referring Physician Referring Physician: DOT Identification/Chief Complaint Chief Complaint SOB Source Source: Chart review, Patient History of Present Illness Reason for Visit: THIS IS A 57 YR OLD WITH SOB. SHE HAS HAD CHO. SHE IS UNDERGOING CARDIOLOGY EVAL. SHE HAS ESRD DUE TO HTN AND DM II AND SHE IS ON OP HD ON TTS. LABS ARE C/ W ESRD Past Medical History Cardiovascular: HTN, Hyperlipidemia Pulmonary: Other (chornic tobaccoism, no past notation of COPD) CENTRAL NERVOUS SYSTEM: Vertigo GI: Constipation, GERD Heme/Onc: Anemia NOS Hepatobiliary: No pertinent hx Psych: No pertinent hx Musculoskeletal: Osteoarthritis, Other (morbid obesity) Rheumatologic: No pertinent hx Infectious disease: No pertinent hx ENT: Allergic Rhinitis, Other Renal/: Chronic renal failure (ESRD with HD) Endocrine: Diabetes (2), Hyperparathyroidism Dermatology: No pertinent hx Past Surgical History Past Surgical History LEFT ARM AVG Past Surgical History: Other Family History Family History: Diabetes, Hypertension Social History 1 pack per day (1ppd ) ALCOHOL: rare Drugs: None Lives: with Family Current Medications Current Medications Current Medications Albuterol/ Ipratropium (Duoneb) 3 ml 1X ONCE NEB Last administered on 19:14; Start 03/30/17 at 19:00; Stop 03/30/17 at 19:03; Status DC Ondansetron HCl (Zofran) 4 mg PRN Q8HRS PRN IV NAUSEA/VOMITING; Start 03/30/17 at 22:00; Stop 03/31/17 at 21:59 Albuterol/ Ipratropium (Duoneb) 3 ml RTQID NEB Last administered on 03/31/17 07:11; Start 03/31/17 at 08:00; Stop 04/01/17 at 07:59 Acetaminophen (Tylenol) 325 mg PRN Q6HRS PRN PO MILD PAIN / TEMP; Start at 00:00 Acetaminophen/ Hydrocodone Bitart (Lortab 5/325) 1 tab PRN Q6HRS PRN PO MODERATE TO SEVERE PAIN; Start 03/31/17 at 00:00 Hydralazine HCl (Apresoline) 10 mg PRN Q4HRS PRN IVP ELEVATED BP, SEE COMMENTS ; Start 03/31/17 at 00:00 Ondansetron HCl (Zofran) 4 mg PRN Q8HRS PRN IV NAUSEA/VOMITING; Start 03/31/17 at 00:00 Albuterol Sulfate (Ventolin Neb Soln) 2.5 mg PRN Q4HRS PRN NEB SHORTNESS OF BREATH Last administered on 03/31/17 04:17; Start 03/31/17 at 00:00 Amlodipine Besylate (Norvasc) 10 mg DAILY PO Last administered on 03/31/17 08: 09; Start 03/31/17 at 09:00 Aspirin (Children'S Aspirin) 81 mg DAILY PO Last administered on 03/31/17 08: 08; Start 03/31/17 at 09:00 Clonidine HCl (Catapres) 0.3 mg QID PO Last administered on 03/31/17 08:19; Start 03/31/17 at 09:00 Clopidogrel Bisulfate (Plavix) 75 mg DAILY PO ; Start 03/31/17 at 09:00 Docusate Sodium (Colace) 200 mg BID PO Last administered on 03/31/17 08:07; Start 03/31/17 at 09:00 Insulin Aspart (NovoLOG) 15 units TIDWMEALS SQ Last administered on 03/31/17 08:41; Start 03/31/17 at 08:00 Lisinopril (Prinivil) 40 mg BID PO Last administered on 03/31/17 08:08; Start 03/31/17 at 09:00 Metoclopramide HCl (Reglan) 5 mg PRN TID PRN PO NAUSEA; Start 03/31/17 at 00:15 Ondansetron HCl (Zofran Odt) 4 mg PRN Q6HRS PRN PO NAUSEA; Start 03/31/17 at 00 :00 Sevelamer Carbonate (Renvela) 2.4 gm TIDWMEALS PO Last administered on 08:37; Start 03/31/17 at 08:00 Hydralazine HCl (Apresoline) 100 mg TID PO Last administered on 03/31/17 08:08 ; Start 03/31/17 at 09:00 Insulin Detemir (Levemir) 18 units QHS SQ ; Start 03/31/17 at 21:00 Labetalol HCl (Trandate) 300 mg QID PO Last administered on 03/31/17 08:07; Start 03/31/17 at 09:00 Promethazine HCl (Phenergan) 25 mg PRN Q6HRS PRN PO NAUSEA/VOMITING; Start at 23:45 Nicardipine HCl 50 mg/Sodium Chloride 270 ml @ 0 mls/hr CONT PRN IV SEE I/O RECORD Last administered on 03/31/17 03:14; Start 03/31/17 at 00:00 Insulin Aspart (NovoLOG) 0-9 UNITS TIDWMEALS SQ ; Start 03/31/17 at 08:00; Status Cancel Dextrose (Dextrose 50%-Water Syringe) 12.5 gm PRN Q15MIN PRN IV SEE COMMENTS; Start 03/31/17 at 00:00 Heparin Sodium/ Dextrose 500 ml @ 0 mls/hr CONT PRN IV SEE I/O RECORD; Start at 00:15 Heparin Sodium (Porcine) (Heparin Sodium) 3,400 unit PRN Q6HRS PRN IV FOR UFH LEVEL LESS THAN 0.2; Start 03/31/17 at 00:15 Heparin Sodium (Porcine) (Heparin Sodium) 1,700 unit PRN Q6HRS PRN IV FOR UFH LEVEL 0.2 - 0.29; Start 03/31/17 at 00:15 Warfarin Sodium (Coumadin Per Pharmacy) 1 each PRN DAILY PRN MC PER PROTOCOL Last administered on 03/31/17 09:03; Start 03/31/17 at 00:15 Hydralazine HCl (Apresoline) 20 mg 1X ONCE IVP Last administered on 03/31/17 00:45; Start 03/31/17 at 00:30; Stop 03/31/17 at 00:31; Status DC Insulin Aspart (NovoLOG) 0-9 UNITS TIDWMEALS SQ ; Start 03/31/17 at 00:30 Dextrose (Dextrose 50%-Water Syringe) 12.5 gm PRN Q15MIN PRN IV SEE COMMENTS; Start 03/31/17 at 00:15; Status UNV Info (Anti-Coagulation Monitoring By Pharmacy) 1 each PRN DAILY PRN MC SEE COMMENTS Last administered on 6/17/17at 06:44; Start 03/31/17 at 02:30 Active Scripts Active Promethazine Hcl 25 Mg Tablet 25 Mg PO Q6H PRN Reported Reglan (Metoclopramide Hcl) 10 Mg Tablet 10 Tab PO PRN TID Zofran Odt (Ondansetron) 4 Mg Tab.rapdis 4 Mg PO PRN Q6HRS Labetalol Hcl 300 Mg Tablet 1 Tab PO QID Novolog Flexpen (Insulin Aspart) 100 Unit/1 Ml Insuln.pen 15 Units SQ TIDWMEALS Levemir (Insulin Detemir) 100 Unit/1 Ml Vial 18 Unit SQ QHS Colace (Docusate Sodium) 100 Mg Capsule 200 Mg PO BID Renvela (Sevelamer Carbonate) 2.4 Gm Powd.pack 2.4 Gm PO TIDWMEALS Plavix (Clopidogrel Bisulfate) 75 Mg Tablet 75 Mg PO DAILY Hydralazine Hcl 100 Mg Tablet 100 Mg PO TID Amlodipine Besylate 10 Mg Tablet 10 Mg PO DAILY Nephro-Jill Tablet (Folic Acid/Vitamin B Comp W-C) 0.8 Mg Tablet 0.8 Mg PO DAILY Aspirin 81 Mg Tab.chew 81 Mg PO DAILY Miralax (Polyethylene Glycol 3350) 17 Gm Powd.pack 17 Gm PO DAILY Lisinopril 40 Mg Tablet 40 Mg PO BID Clonidine Hcl 0.3 Mg Tablet 0.3 Mg PO QID Allergies Allergies: Coded Allergies: No Known Drug Allergies (Unverified , 09/29/16) ROS General: YES: Fatigue, Malaise, Appetite PSYCHOLOGICAL ROS: YES: Anxiety Eyes: Yes Decreased vision HEENT: YES: Heacaches Respiratory: YES: Cough, Shortness of breath, SOB with excertion Cardiovascular: yes Other (CHEST TIGHTNESS) Gastrointestinal: Yes Constipation Genitourinary: YES Other (ANURIA) Musculoskeletal: Yes Muscular Weakness Neurological: Yes Weakness Skin: Yes Dry Skin Physical Exam General: Alert, Oriented X3, Cooperative, No acute distress HEENT: Atraumatic, PERRLA Lungs: Other (FEW WHEEZES) Heart: Regular rate, Normal S1 Abdomen: Normal bowel sounds, Soft, No tenderness Extremities: No clubbing Neuro: Normal speech, Cranial nerves 3-12 NL Psych/Mental Status: Mental status NL, Mood NL MUSCULOSKELETAL: No deformity, No swelling Vitals VITALS Vital Signs Date Time Temp Pulse Resp B/P (MAP) Pulse Ox O2 Delivery O2 Flow Rate FiO2 03/31/17 08:19 80 169/71 03/31/17 07:11 97 Nasal Cannula 4.0 03/31/17 03:00 98.7 98.7 03/30/17 22:30 24 Labs Labs Laboratory Tests Test 03/30/17 19:05 03/30/17 20:20 03/31/17 00:42 03/31/17 02:00 White Blood Count 8.1 x10^3/uL (4.0-11.0) 9.0 x10^3/uL (4.0-11.0) Red Blood Count 3.87 x10^6/uL (3.50-5.40) 3.78 x10^6/uL (3.50-5.40) Hemoglobin 11.3 g/dL (12.0-15.5) 10.9 g/dL (12.0-15.5) Hematocrit 34.8 % (36.0-47.0) 34.2 % (36.0-47.0) Mean Corpuscular Volume 90 fL (79-100) 91 fL (79-100) Mean Corpuscular Hemoglobin 29 pg (25-35) 29 pg (25-35) Mean Corpuscular Hemoglobin Concent 32 g/dL (31-37) 32 g/dL (31-37) Red Cell Distribution Width 19.8 % (11.5-14.5) 20.1 % (11.5-14.5) Platelet Count 236 x10^3/uL (140-400) 227 x10^3/uL (140-400) Neutrophils (%) (Auto) 72 % (31-73) 75 % (31-73) Lymphocytes (%) (Auto) 14 % (24-48) 12 % (24-48) Monocytes (%) (Auto) 12 % (0-9) 11 % (0-9) Eosinophils (%) (Auto) 3 % (0-3) 2 % (0-3) Basophils (%) (Auto) 0 % (0-3) 1 % (0-3) Neutrophils # (Auto) 5.9 x10^3uL (1.8-7.7) 6.8 x10^3uL (1.8-7.7) Lymphocytes # (Auto) 1.1 x10^3/uL (1.0-4.8) 1.1 x10^3/uL (1.0-4.8) Monocytes # (Auto) 0.9 x10^3/uL (0.0-1.1) 1.0 x10^3/uL (0.0-1.1) Eosinophils # (Auto) 0.2 x10^3/uL (0.0-0.7) 0.2 x10^3/uL (0.0-0.7) Basophils # (Auto) 0.0 x10^3/uL (0.0-0.2) 0.1 x10^3/uL (0.0-0.2) D-Dimer (Amy) 1.21 ug/mlFEU (0.00-0.50) Sodium Level 141 mmol/L (136-145) 141 mmol/L (136-145) Potassium Level 4.3 mmol/L (3.5-5.1) 4.5 mmol/L (3.5-5.1) Chloride Level 107 mmol/L (98-107) 106 mmol/L (98-107) Carbon Dioxide Level 24 mmol/L (21-32) 21 mmol/L (21-32) Anion Gap 10 (6-14) 14 (6-14) Blood Urea Nitrogen 31 mg/dL (7-20) 32 mg/dL (7-20) Creatinine 6.4 mg/dL (0.6-1.0) 6.9 mg/dL (0.6-1.0) Estimated GFR (Cockcroft-Gault) 8.1 7.4 BUN/Creatinine Ratio 5 (6-20) Glucose Level 224 mg/dL (70-99) 249 mg/dL (70-99) Calcium Level 8.4 mg/dL (8.5-10.1) 8.2 mg/dL (8.5-10.1) Total Bilirubin 0.5 mg/dL (0.2-1.0) Aspartate Amino Transf (AST/SGOT) 13 U/L (15-37) Alanine Aminotransferase (ALT/SGPT) 18 U/L (14-59) Alkaline Phosphatase 83 U/L (46-116) Creatine Kinase 229 U/L (26-192) Creatine Kinase MB (Mass) 1.1 ng/mL (0.0-3.6) Creatine Kinase MB Relative Index 0.5 % (0-4) Troponin I Quantitative < 0.017 ng/mL (0.000-0.055) < 0.017 ng/mL (0.000-0.055) WL-Ghm-N-Type Natriuretic Peptide 3240 pg/mL (0-124) Total Protein 6.6 g/dL (6.4-8.2) Albumin 3.4 g/dL (3.4-5.0) Albumin/Globulin Ratio 1.1 (1.0-1.7) Glucose (Fingerstick) 169 mg/dL (70-99) Triglycerides Level 58 mg/dL (0-150) Cholesterol Level 129 mg/dL (0-200) LDL Cholesterol, Calculated 52 mg/dL (0-100) VLDL Cholesterol, Calculated 12 mg/dL (0-40) Non-HDL Cholesterol Calculated 64 mg/dL (0-129) HDL Cholesterol 65 mg/dL (40-60) Cholesterol/HDL Ratio 2.0 Thyroid Stimulating Hormone (TSH) 0.918 uIU/mL (0.358-3.74) Test 03/31/17 08:00 03/31/17 08:45 Glucose (Fingerstick) 214 mg/dL (70-99) Prothrombin Time 13.4 SEC (11.7-14.0) Prothromb Time International Ratio 1.1 (0.8-1.1) Troponin I Quantitative < 0.017 ng/mL (0.000-0.055) Laboratory Tests Test 03/30/17 19:05 03/30/17 20:20 03/31/17 00:42 03/31/17 02:00 White Blood Count 8.1 x10^3/uL (4.0-11.0) 9.0 x10^3/uL (4.0-11.0) Red Blood Count 3.87 x10^6/uL (3.50-5.40) 3.78 x10^6/uL (3.50-5.40) Hemoglobin 11.3 g/dL (12.0-15.5) 10.9 g/dL (12.0-15.5) Hematocrit 34.8 % (36.0-47.0) 34.2 % (36.0-47.0) Mean Corpuscular Volume 90 fL (79-100) 91 fL (79-100) Mean Corpuscular Hemoglobin 29 pg (25-35) 29 pg (25-35) Mean Corpuscular Hemoglobin Concent 32 g/dL (31-37) 32 g/dL (31-37) Red Cell Distribution Width 19.8 % (11.5-14.5) 20.1 % (11.5-14.5) Platelet Count 236 x10^3/uL (140-400) 227 x10^3/uL (140-400) Neutrophils (%) (Auto) 72 % (31-73) 75 % (31-73) Lymphocytes (%) (Auto) 14 % (24-48) 12 % (24-48) Monocytes (%) (Auto) 12 % (0-9) 11 % (0-9) Eosinophils (%) (Auto) 3 % (0-3) 2 % (0-3) Basophils (%) (Auto) 0 % (0-3) 1 % (0-3) Neutrophils # (Auto) 5.9 x10^3uL (1.8-7.7) 6.8 x10^3uL (1.8-7.7) Lymphocytes # (Auto) 1.1 x10^3/uL (1.0-4.8) 1.1 x10^3/uL (1.0-4.8) Monocytes # (Auto) 0.9 x10^3/uL (0.0-1.1) 1.0 x10^3/uL (0.0-1.1) Eosinophils # (Auto) 0.2 x10^3/uL (0.0-0.7) 0.2 x10^3/uL (0.0-0.7) Basophils # (Auto) 0.0 x10^3/uL (0.0-0.2) 0.1 x10^3/uL (0.0-0.2) D-Dimer (Amy) 1.21 ug/mlFEU (0.00-0.50) Sodium Level 141 mmol/L (136-145) 141 mmol/L (136-145) Potassium Level 4.3 mmol/L (3.5-5.1) 4.5 mmol/L (3.5-5.1) Chloride Level 107 mmol/L (98-107) 106 mmol/L (98-107) Carbon Dioxide Level 24 mmol/L (21-32) 21 mmol/L (21-32) Anion Gap 10 (6-14) 14 (6-14) Blood Urea Nitrogen 31 mg/dL (7-20) 32 mg/dL (7-20) Creatinine 6.4 mg/dL (0.6-1.0) 6.9 mg/dL (0.6-1.0) Estimated GFR (Cockcroft-Gault) 8.1 7.4 BUN/Creatinine Ratio 5 (6-20) Glucose Level 224 mg/dL (70-99) 249 mg/dL (70-99) Calcium Level 8.4 mg/dL (8.5-10.1) 8.2 mg/dL (8.5-10.1) Total Bilirubin 0.5 mg/dL (0.2-1.0) Aspartate Amino Transf (AST/SGOT) 13 U/L (15-37) Alanine Aminotransferase (ALT/SGPT) 18 U/L (14-59) Alkaline Phosphatase 83 U/L (46-116) Creatine Kinase 229 U/L (26-192) Creatine Kinase MB (Mass) 1.1 ng/mL (0.0-3.6) Creatine Kinase MB Relative Index 0.5 % (0-4) Troponin I Quantitative < 0.017 ng/mL (0.000-0.055) < 0.017 ng/mL (0.000-0.055) LK-Nrh-G-Type Natriuretic Peptide 3240 pg/mL (0-124) Total Protein 6.6 g/dL (6.4-8.2) Albumin 3.4 g/dL (3.4-5.0) Albumin/Globulin Ratio 1.1 (1.0-1.7) Glucose (Fingerstick) 169 mg/dL (70-99) Triglycerides Level 58 mg/dL (0-150) Cholesterol Level 129 mg/dL (0-200) LDL Cholesterol, Calculated 52 mg/dL (0-100) VLDL Cholesterol, Calculated 12 mg/dL (0-40) Non-HDL Cholesterol Calculated 64 mg/dL (0-129) HDL Cholesterol 65 mg/dL (40-60) Cholesterol/HDL Ratio 2.0 Thyroid Stimulating Hormone (TSH) 0.918 uIU/mL (0.358-3.74) Test 03/31/17 08:00 03/31/17 08:45 Glucose (Fingerstick) 214 mg/dL (70-99) Prothrombin Time 13.4 SEC (11.7-14.0) Prothromb Time International Ratio 1.1 (0.8-1.1) Troponin I Quantitative < 0.017 ng/mL (0.000-0.055) Assessment/Plan Assessment/Plan IMP ESRD ANEMIA CHO-CM-?CAD AND CHF PROB AECOPD-ONGOING TOBACCOISM DM II HTN-? VOLUME DEPENDENT PLAN HD TODAY UF TO DW TOLERATED MANOLO FIGUEROA SMOKING CESSATION LILA ALDANA MD Mar 31, 2017 10:32
[2017-03-31] MEDS ORDERED: DIALYSIS PATIENT. MC PRN ×2 (11:30→16:15)
--- NOTE | 2017-03-31 11:57 | PDOC1 ---
History and Physical Past Medical History Cardiovascular: HTN, Hyperlipidemia Pulmonary: Other (chornic tobaccoism, no past notation of COPD) CENTRAL NERVOUS SYSTEM: Vertigo GI: Constipation, GERD Heme/Onc: Anemia NOS Hepatobiliary: No pertinent hx Psych: No pertinent hx Rheumatologic: No pertinent hx Infectious disease: No pertinent hx ENT: Allergic Rhinitis, Other Renal/: Chronic renal failure (ESRD with HD) Endocrine: Diabetes (2), Hyperparathyroidism Dermatology: No pertinent hx Past Surgical History Past Surgical History: Other Family History Family History: Diabetes, Hypertension Social History Smoke: 1 pack per day (1ppd ) ALCOHOL: rare Drugs: None Current Medications Current Medications Current Medications Medications (Trade) Dose Ordered Sig/Anil Start Time Stop Time Status Last Admin Dose Admin Acetaminophen (Tylenol) 325 mg PRN Q6HRS PRN 03/31/17 00:00 Acetaminophen/ Hydrocodone Bitart (Lortab 5/325) 1 tab PRN Q6HRS PRN 03/31/17 00:00 Albuterol Sulfate (Ventolin Neb Soln) 2.5 mg PRN Q4HRS PRN 03/31/17 00:00 03/31/17 04:17 2.5 MG Albuterol/ Ipratropium (Duoneb) 3 ml RTQID 03/31/17 08:00 04/01/17 07:59 03/31/17 11:13 3 ML Amlodipine Besylate (Norvasc) 10 mg DAILY 03/31/17 09:00 03/31/17 08:09 10 MG Aspirin (Children'S Aspirin) 81 mg DAILY 03/31/17 09:00 03/31/17 08:08 81 MG Clonidine HCl (Catapres) 0.3 mg QID 03/31/17 09:00 03/31/17 08:19 0.3 MG Clopidogrel Bisulfate (Plavix) 75 mg DAILY 03/31/17 09:00 Darbepoetin Herbert (Aranesp) 60 mcg Sa 03/31/17 21:00 Dextrose (Dextrose 50%-Water Syringe) 12.5 gm PRN Q15MIN PRN 03/31/17 00:15 UNV Docusate Sodium (Colace) 200 mg BID 03/31/17 09:00 03/31/17 08:07 200 MG Heparin Sodium (Porcine) (Heparin Sodium) 1,700 unit PRN Q6HRS PRN 03/31/17 00:15 03/31/17 11:18 DC Heparin Sodium/ Dextrose 500 ml @ 0 mls/hr CONT PRN 03/31/17 00:15 03/31/17 11:13 DC Hydralazine HCl (Apresoline) 20 mg 1X ONCE 03/31/17 00:30 03/31/17 00:31 DC 03/31/17 00:45 20 MG Info (Anti-Coagulation Monitoring By Pharmacy) 1 each PRN DAILY PRN 03/31/17 02:30 03/31/17 11:18 DC 03/31/17 06:44 1 EACH Info (PHARMACY MONITORING -- do not chart) 1 each PRN DAILY PRN 03/31/17 11:30 Insulin Aspart (NovoLOG) 0-9 UNITS TIDWMEALS 03/31/17 00:30 Insulin Detemir (Levemir) 18 units QHS 03/31/17 21:00 Labetalol HCl (Trandate) 300 mg QID 03/31/17 09:00 03/31/17 08:07 300 MG Lisinopril (Prinivil) 40 mg BID 03/31/17 09:00 03/31/17 08:08 40 MG Metoclopramide HCl (Reglan) 5 mg PRN TID PRN 03/31/17 00:15 Nicardipine HCl 50 mg/Sodium Chloride 270 ml @ 0 mls/hr CONT PRN 03/31/17 00:00 03/31/17 11:13 DC 03/31/17 03:14 25 MLS/HR Ondansetron HCl (Zofran Odt) 4 mg PRN Q6HRS PRN 03/31/17 00:00 Ondansetron HCl (Zofran) 4 mg PRN Q8HRS PRN 03/31/17 00:00 Promethazine HCl (Phenergan) 25 mg PRN Q6HRS PRN 03/30/17 23:45 Sevelamer Carbonate (Renvela) 2.4 gm TIDWMEALS 03/31/17 08:00 03/31/17 08:37 2.4 GM Warfarin Sodium (Coumadin Per Pharmacy) 1 each PRN DAILY PRN 03/31/17 00:15 03/31/17 09:03 1 EACH Allergies Allergies Allergies Coded Allergies Type Severity Reaction Last Updated Verified No Known Drug Allergies 09/29/16 No ROS Review of System CONSTITUTIONAL: No fever or chills EYES: No recent changes SKIN: No rash or itching CARDIOVASCULAR: chest pain,no syncope, palpitations, or edema RESPIRATORY: No SOB or cough GASTROINTESTINAL: No nausea, vomiting or abdominal pain NEUROLOGICAL: No headaches or weakness ENDOCRINE: No cold or heat intolerance GENITOURINARY: No urgency or frequency of urination MUSCULOSKELETAL: No back pain or joint pain LYMPHATICS: No enlarged lymph nodes PSYCHIATRIC: No anxiety or depression Physical Exam Physical Exam GEN.: No apparent distress. Alert and oriented time 3 HEENT: Head is normocephalic, atraumatic NECK: Supple. no JVD LUNGS: Clear to auscultation. normal airflow HEART: RRR, S1, S2 present. Peripheral pulses intact ABDOMEN: Soft, nontender. Positive bowel sounds. EXTREMITIES: Without any cyanosis. edema and tense, chronic dermatitis. NEUROLOGIC: Normal speech, normal tone PSYCHIATRIC: Normal affect, normal mood. SKIN: No ulcerations Vitals Vitals Vital Signs Date Time Temp Pulse Resp B/P (MAP) Pulse Ox O2 Delivery O2 Flow Rate FiO2 03/31/17 11:15 98 Nasal Cannula 4.0 03/31/17 11:00 98.5 74 20 158/47 (84) 98.5 Labs Labs Laboratory Tests Test 03/30/17 19:05 03/30/17 20:20 03/31/17 00:42 03/31/17 02:00 White Blood Count 8.1 x10^3/uL (4.0-11.0) 9.0 x10^3/uL (4.0-11.0) Red Blood Count 3.87 x10^6/uL (3.50-5.40) 3.78 x10^6/uL (3.50-5.40) Hemoglobin 11.3 g/dL (12.0-15.5) 10.9 g/dL (12.0-15.5) Hematocrit 34.8 % (36.0-47.0) 34.2 % (36.0-47.0) Mean Corpuscular Volume 90 fL (79-100) 91 fL (79-100) Mean Corpuscular Hemoglobin 29 pg (25-35) 29 pg (25-35) Mean Corpuscular Hemoglobin Concent 32 g/dL (31-37) 32 g/dL (31-37) Red Cell Distribution Width 19.8 % (11.5-14.5) 20.1 % (11.5-14.5) Platelet Count 236 x10^3/uL (140-400) 227 x10^3/uL (140-400) Neutrophils (%) (Auto) 72 % (31-73) 75 % (31-73) Lymphocytes (%) (Auto) 14 % (24-48) 12 % (24-48) Monocytes (%) (Auto) 12 % (0-9) 11 % (0-9) Eosinophils (%) (Auto) 3 % (0-3) 2 % (0-3) Basophils (%) (Auto) 0 % (0-3) 1 % (0-3) Neutrophils # (Auto) 5.9 x10^3uL (1.8-7.7) 6.8 x10^3uL (1.8-7.7) Lymphocytes # (Auto) 1.1 x10^3/uL (1.0-4.8) 1.1 x10^3/uL (1.0-4.8) Monocytes # (Auto) 0.9 x10^3/uL (0.0-1.1) 1.0 x10^3/uL (0.0-1.1) Eosinophils # (Auto) 0.2 x10^3/uL (0.0-0.7) 0.2 x10^3/uL (0.0-0.7) Basophils # (Auto) 0.0 x10^3/uL (0.0-0.2) 0.1 x10^3/uL (0.0-0.2) D-Dimer (Amy) 1.21 ug/mlFEU (0.00-0.50) Sodium Level 141 mmol/L (136-145) 141 mmol/L (136-145) Potassium Level 4.3 mmol/L (3.5-5.1) 4.5 mmol/L (3.5-5.1) Chloride Level 107 mmol/L (98-107) 106 mmol/L (98-107) Carbon Dioxide Level 24 mmol/L (21-32) 21 mmol/L (21-32) Anion Gap 10 (6-14) 14 (6-14) Blood Urea Nitrogen 31 mg/dL (7-20) 32 mg/dL (7-20) Creatinine 6.4 mg/dL (0.6-1.0) 6.9 mg/dL (0.6-1.0) Estimated GFR (Cockcroft-Gault) 8.1 7.4 BUN/Creatinine Ratio 5 (6-20) Glucose Level 224 mg/dL (70-99) 249 mg/dL (70-99) Calcium Level 8.4 mg/dL (8.5-10.1) 8.2 mg/dL (8.5-10.1) Total Bilirubin 0.5 mg/dL (0.2-1.0) Aspartate Amino Transf (AST/SGOT) 13 U/L (15-37) Alanine Aminotransferase (ALT/SGPT) 18 U/L (14-59) Alkaline Phosphatase 83 U/L (46-116) Creatine Kinase 229 U/L (26-192) Creatine Kinase MB (Mass) 1.1 ng/mL (0.0-3.6) Creatine Kinase MB Relative Index 0.5 % (0-4) Troponin I Quantitative < 0.017 ng/mL (0.000-0.055) < 0.017 ng/mL (0.000-0.055) BB-Mdr-C-Type Natriuretic Peptide 3240 pg/mL (0-124) Total Protein 6.6 g/dL (6.4-8.2) Albumin 3.4 g/dL (3.4-5.0) Albumin/Globulin Ratio 1.1 (1.0-1.7) Glucose (Fingerstick) 169 mg/dL (70-99) Triglycerides Level 58 mg/dL (0-150) Cholesterol Level 129 mg/dL (0-200) LDL Cholesterol, Calculated 52 mg/dL (0-100) VLDL Cholesterol, Calculated 12 mg/dL (0-40) Non-HDL Cholesterol Calculated 64 mg/dL (0-129) HDL Cholesterol 65 mg/dL (40-60) Cholesterol/HDL Ratio 2.0 Thyroid Stimulating Hormone (TSH) 0.918 uIU/mL (0.358-3.74) Test 03/31/17 08:00 6/17/17 08:45 03/31/17 11:34 Glucose (Fingerstick) 214 mg/dL (70-99) 200 mg/dL (70-99) Prothrombin Time 13.4 SEC (11.7-14.0) Prothromb Time International Ratio 1.1 (0.8-1.1) Troponin I Quantitative < 0.017 ng/mL (0.000-0.055) Laboratory Tests Test 03/30/17 19:05 03/30/17 20:20 03/31/17 00:42 03/31/17 02:00 White Blood Count 8.1 x10^3/uL (4.0-11.0) 9.0 x10^3/uL (4.0-11.0) Red Blood Count 3.87 x10^6/uL (3.50-5.40) 3.78 x10^6/uL (3.50-5.40) Hemoglobin 11.3 g/dL (12.0-15.5) 10.9 g/dL (12.0-15.5) Hematocrit 34.8 % (36.0-47.0) 34.2 % (36.0-47.0) Mean Corpuscular Volume 90 fL (79-100) 91 fL (79-100) Mean Corpuscular Hemoglobin 29 pg (25-35) 29 pg (25-35) Mean Corpuscular Hemoglobin Concent 32 g/dL (31-37) 32 g/dL (31-37) Red Cell Distribution Width 19.8 % (11.5-14.5) 20.1 % (11.5-14.5) Platelet Count 236 x10^3/uL (140-400) 227 x10^3/uL (140-400) Neutrophils (%) (Auto) 72 % (31-73) 75 % (31-73) Lymphocytes (%) (Auto) 14 % (24-48) 12 % (24-48) Monocytes (%) (Auto) 12 % (0-9) 11 % (0-9) Eosinophils (%) (Auto) 3 % (0-3) 2 % (0-3) Basophils (%) (Auto) 0 % (0-3) 1 % (0-3) Neutrophils # (Auto) 5.9 x10^3uL (1.8-7.7) 6.8 x10^3uL (1.8-7.7) Lymphocytes # (Auto) 1.1 x10^3/uL (1.0-4.8) 1.1 x10^3/uL (1.0-4.8) Monocytes # (Auto) 0.9 x10^3/uL (0.0-1.1) 1.0 x10^3/uL (0.0-1.1) Eosinophils # (Auto) 0.2 x10^3/uL (0.0-0.7) 0.2 x10^3/uL (0.0-0.7) Basophils # (Auto) 0.0 x10^3/uL (0.0-0.2) 0.1 x10^3/uL (0.0-0.2) D-Dimer (Amy) 1.21 ug/mlFEU (0.00-0.50) Sodium Level 141 mmol/L (136-145) 141 mmol/L (136-145) Potassium Level 4.3 mmol/L (3.5-5.1) 4.5 mmol/L (3.5-5.1) Chloride Level 107 mmol/L (98-107) 106 mmol/L (98-107) Carbon Dioxide Level 24 mmol/L (21-32) 21 mmol/L (21-32) Anion Gap 10 (6-14) 14 (6-14) Blood Urea Nitrogen 31 mg/dL (7-20) 32 mg/dL (7-20) Creatinine 6.4 mg/dL (0.6-1.0) 6.9 mg/dL (0.6-1.0) Estimated GFR (Cockcroft-Gault) 8.1 7.4 BUN/Creatinine Ratio 5 (6-20) Glucose Level 224 mg/dL (70-99) 249 mg/dL (70-99) Calcium Level 8.4 mg/dL (8.5-10.1) 8.2 mg/dL (8.5-10.1) Total Bilirubin 0.5 mg/dL (0.2-1.0) Aspartate Amino Transf (AST/SGOT) 13 U/L (15-37) Alanine Aminotransferase (ALT/SGPT) 18 U/L (14-59) Alkaline Phosphatase 83 U/L (46-116) Creatine Kinase 229 U/L (26-192) Creatine Kinase MB (Mass) 1.1 ng/mL (0.0-3.6) Creatine Kinase MB Relative Index 0.5 % (0-4) Troponin I Quantitative < 0.017 ng/mL (0.000-0.055) < 0.017 ng/mL (0.000-0.055) EI-Kxg-[id number]-Type Natriuretic Peptide 3240 pg/mL (0-124) Total Protein 6.6 g/dL (6.4-8.2) Albumin 3.4 g/dL (3.4-5.0) Albumin/Globulin Ratio 1.1 (1.0-1.7) Glucose (Fingerstick) 169 mg/dL (70-99) Triglycerides Level 58 mg/dL (0-150) Cholesterol Level 129 mg/dL (0-200) LDL Cholesterol, Calculated 52 mg/dL (0-100) VLDL Cholesterol, Calculated 12 mg/dL (0-40) Non-HDL Cholesterol Calculated 64 mg/dL (0-129) HDL Cholesterol 65 mg/dL (40-60) Cholesterol/HDL Ratio 2.0 Thyroid Stimulating Hormone (TSH) 0.918 uIU/mL (0.358-3.74) Test 03/31/17 08:00 03/31/17 08:45 03/31/17 11:34 Glucose (Fingerstick) 214 mg/dL (70-99) 200 mg/dL (70-99) Prothrombin Time 13.4 SEC (11.7-14.0) Prothromb Time International Ratio 1.1 (0.8-1.1) Troponin I Quantitative < 0.017 ng/mL (0.000-0.055) VTE Prophylaxis Ordered VTE Prophylaxis Devices: Yes VTE Pharmacological Prophylaxi: Yes JULIANNA CHRIS MD Mar 31, 2017 11:57
--- NOTE | 2017-03-31 12:11 | EKG ---
[facility] [address] [place] [address] Test Date: 2017-03-30 Test Time: 18:44:26 Pat Name: OLIVE ROBERTS Department: Room: 258 1 Gender: F Director Of Broadcast: : 1960 Requested By: JOSEFA MARAVILLA Order Number: [id number] Reading MD: Shaun Silverio Measurements Intervals [place] Rate: 86 P: 56 HI: 136 QRS: 39 QRSD: 80 T: 37 QT: 370 QTc: 446 Interpretive Statements SINUS RHYTHM LEFT ATRIAL ABNORMALITY LOW LIMB LEAD VOLTAGE ABNORMAL ECG RI6.01 Compared to ECG 02/14/2017 19:44:54 No significant changes Electronically Signed On 04-02-2017 10:46:33 CDT by Shaun Silverio
[2017-03-31] MEDS: CLOPIDOGREL BISULFATE 75 MG TABLET PO SCH (12:42)
--- NOTE | 2017-03-31 13:56 | RAD ---
EXAM: Bilateral lower extremity venous Doppler. HISTORY: Bilateral lower extremity pain/swelling. COMPARISON: None. FINDINGS: Grayscale and Doppler analysis of the both lower extremity deep venous systems was performed with graded compression and augmentation. The common femoral, greater saphenous, superficial femoral, popliteal and calf veins were assessed. There is no evidence of deep venous thrombosis. Subcutaneous edema is noted. IMPRESSION: 1. No evidence of deep venous thrombosis.
[2017-03-31] MEDS ORDERED: IV NORMAL SALINE 1000ML BAG 1,000 ML IV PRN ×2 (16:06)
[2017-03-31] MEDS: INSULIN DETEMIR 300 UNITS/3 ML INSULN.PEN. SQ SCH (20:39)
[2017-03-31] MEDS ORDERED: DARBEPOETIN ALFA 60 MCG/0.3 ML DISP.SYRIN. SQ SCH (21:00)
[2017-04-01 03:07] VITALS: BP 179/65
[2017-04-01 07:00] VITALS: BP 174/54
[2017-04-01] MEDS: IPRATRPIUM/ALBUTEROL 0.5/2.5MG 3 ML NEBU. NEB SCH (07:47)
[2017-04-01] MEDS: INSULIN ASPART 300 UNITS/3 ML INSULN.PEN SQ SCH ×6 (08:00→17:28)
[2017-04-01 08:02] LABS: BASO # 0.1 x10^3/uL (0.0-0.2); BASO % 1 % (0-3); EOS % 2 % (0-3); HEMATOCRIT 32.1 % (36.0-47.0); HEMOGLOBIN 10.4 g/dL (12.0-15.5); LYMPH # 1.1 x10^3/uL (1.0-4.8); LYMPH % 15 % (24-48); MEAN CORPUSCULAR HEMOGLOBIN 29 pg (25-35); MEAN CORPUSCULAR HGB CONC 33 g/dL (31-37); MEAN CORPUSCULAR VOLUME 89 fL (79-100); MONO % 13 % (0-9); NEUT % 68 % (31-73); PLATELET COUNT 191 x10^3/uL (140-400); RED BLOOD COUNT 3.61 x10^6/uL (3.50-5.40); RED CELL DISTRIBUTION WIDTH 19.1 % (11.5-14.5)
[2017-04-01 08:08] LABS: CALCIUM 8.1 mg/dL (8.5-10.1); CREATININE 4.8 mg/dL (0.6-1.0); GFR 11.2; POTASSIUM 3.8 mmol/L (3.5-5.1)
[2017-04-01] MEDS: SEVELAMER CARBONATE 2.4 GM PACKET. PO SCH ×3 (08:34→17:23)
[2017-04-01] MEDS: DOCUSATE SODIUM 100 MG CAPSULE. PO SCH ×2 (08:34→21:03)
[2017-04-01] MEDS: ASPIRIN CHEWABLE 81 MG TABLET. PO SCH (08:34)
[2017-04-01] MEDS: amLODIPine BESYLATE 10 MG TABLET PO SCH (08:34)
[2017-04-01] MEDS: LABETALOL HCL 200 MG TABLET PO SCH ×4 (08:35→21:00)
[2017-04-01] MEDS: CLOPIDOGREL BISULFATE 75 MG TABLET PO SCH (08:35)
[2017-04-01 08:36] LABS: INR 1.1 (0.8-1.1); PROTHROMBIN TIME PATIENT 13.2 SEC (11.7-14.0)
[2017-04-01] MEDS: cloNIDine HCL 0.3 MG TABLET PO SCH ×4 (08:36→21:00)
[2017-04-01] MEDS: LISINOPRIL 40 MG TABLET. PO SCH ×2 (08:39→21:02)
[2017-04-01 11:00] VITALS: BP 171/47
--- NOTE | 2017-04-01 11:40 | PDOC ---
PROGRESS NOTES Subjective Subjective Feeling better today. Dyspnea improved. Objective Objective Vital Signs Date Time Temp Pulse Resp B/P (MAP) Pulse Ox O2 Delivery O2 Flow Rate FiO2 04/01/17 11:00 97.9 68 20 171/47 (88) 98 Nasal Cannula 2.0 97.9 Intake and Output 04/01/17 07:00 Intake Total 700 ml Output Total 0 ml Balance 700 ml Intake Oral 700 ml Output Urine Total 0 ml # Voids 2 Physical Exam Abdomen: Normal bowel sounds, Soft, No tenderness Heart: Regular rate, Normal S1 Extremities: No clubbing General: Alert, Oriented X3, Cooperative, No acute distress HEENT: Atraumatic, PERRLA Lungs: Other (FEW WHEEZES) MUSCULOSKELETAL: No deformity, No swelling Psych/Mental Status: Mood NL Assessment Assessment 1. Acute on chronic diastolic CHF: Most probably precipitated by uncontrolled HTN. Improved with fluid removal with hemodialysis. 2-D echo showed normal LV systolic function. 2. Chest tightness: likely from bronchospasm. V/Q neg. Doubt ACS. Troponin series normal, EKG NSR. 3. HTN: Better controlled since admission. 4. DM2: Continue treatment per IM. 5. ESRD: Hemodialysis per nephrology team. 6. Morbid obesity: suspecting RONAK 7. COPD clinically stable Comment Review of Relevant I have reviewed the following items morgan (where applicable) has been applied. Labs Laboratory Tests Test 03/31/17 18:39 03/31/17 20:31 04/01/17 07:24 04/01/17 07:48 Glucose (Fingerstick) 70 mg/dL (70-99) 147 mg/dL (70-99) 156 mg/dL (70-99) White Blood Count 7.0 x10^3/uL (4.0-11.0) Red Blood Count 3.61 x10^6/uL (3.50-5.40) Hemoglobin 10.4 g/dL (12.0-15.5) Hematocrit 32.1 % (36.0-47.0) Mean Corpuscular Volume 89 fL (79-100) Mean Corpuscular Hemoglobin 29 pg (25-35) Mean Corpuscular Hemoglobin Concent 33 g/dL (31-37) Red Cell Distribution Width 19.1 % (11.5-14.5) Platelet Count 191 x10^3/uL (140-400) Neutrophils (%) (Auto) 68 % (31-73) Lymphocytes (%) (Auto) 15 % (24-48) Monocytes (%) (Auto) 13 % (0-9) Eosinophils (%) (Auto) 2 % (0-3) Basophils (%) (Auto) 1 % (0-3) Neutrophils # (Auto) 4.8 x10^3uL (1.8-7.7) Lymphocytes # (Auto) 1.1 x10^3/uL (1.0-4.8) Monocytes # (Auto) 0.9 x10^3/uL (0.0-1.1) Eosinophils # (Auto) 0.2 x10^3/uL (0.0-0.7) Basophils # (Auto) 0.1 x10^3/uL (0.0-0.2) Prothrombin Time 13.2 SEC (11.7-14.0) Prothromb Time International Ratio 1.1 (0.8-1.1) Sodium Level 140 mmol/L (136-145) Potassium Level 3.8 mmol/L (3.5-5.1) Chloride Level 103 mmol/L (98-107) Carbon Dioxide Level 31 mmol/L (21-32) Anion Gap 6 (6-14) Blood Urea Nitrogen 18 mg/dL (7-20) Creatinine 4.8 mg/dL (0.6-1.0) Estimated GFR (Cockcroft-Gault) 11.2 Glucose Level 158 mg/dL (70-99) Calcium Level 8.1 mg/dL (8.5-10.1) Test 04/01/17 11:03 Glucose (Fingerstick) 154 mg/dL (70-99) Medications Current Medications Darbepoetin Herbert (Aranesp) 60 mcg Sa SQ Last administered on 03/31/17 20:33; Start 03/31/17 at 21:00 Info (PHARMACY MONITORING -- do not chart) 1 each PRN DAILY PRN MC SEE COMMENTS ; Start 03/31/17 at 16:15 Insulin Detemir (Levemir) 18 units QHS SQ Last administered on 03/31/17 20:39 ; Start 03/31/17 at 21:00 Sodium Chloride 1,000 ml @ 400 mls/hr Q2H30M PRN IV PATENCY; Start 03/31/17 at 16:06; Stop 04/01/17 at 04:05; Status DC Sodium Chloride 1,000 ml @ 1,000 mls/hr Q1H PRN IV hypotension; Start 03/31/17 at 16:06; Stop 03/31/17 at 22:05; Status DC Vitals/I & O Vital Sign - Last 24 Hours 03/31/17 03/31/17 03/31/17 03/31/17 12:46 12:46 18:52 18:52 Pulse 75 75 84 83 B/P (MAP) 151/62 151/62 184/68 184/68 03/31/17 03/31/17 03/31/17 03/31/17 19:45 20:00 20:15 20:33 Temp 98.4 98.4 Pulse 76 76 Resp 19 B/P (MAP) 185/63 (103) 185/63 Pulse Ox 95 100 O2 Delivery Nasal Cannula Nasal Cannula Nasal Cannula O2 Flow Rate 2.0 2.0 2.0 03/31/17 03/31/17 03/31/17 03/31/17 20:34 20:34 20:35 23:19 Temp 98.6 98.6 Pulse 76 76 76 82 Resp 20 B/P (MAP) 185/63 185/63 185/63 176/55 (95) Pulse Ox 93 O2 Delivery Nasal Cannula O2 Flow Rate 2.0 04/01/17 04/01/17 04/01/17 04/01/17 03:07 04:08 07:00 07:47 Temp 98.5 97.9 98.5 97.9 Pulse 78 72 71 Resp 24 20 B/P (MAP) 179/65 (103) 179/65 174/54 (94) Pulse Ox 94 98 O2 Delivery Nasal Cannula Nasal Cannula Nasal Cannula O2 Flow Rate 2.0 2.0 2.0 04/01/17 04/01/17 04/01/17 04/01/17 07:48 08:34 08:35 08:35 Pulse 73 74 73 B/P (MAP) 174/54 175/54 175/54 Pulse Ox 97 O2 Delivery Nasal Cannula O2 Flow Rate 2.0 04/01/17 04/01/17 04/01/17 08:36 08:39 11:00 Temp 97.9 97.9 Pulse 74 74 68 Resp 20 B/P (MAP) 174/54 174/75 171/47 (88) Pulse Ox 98 O2 Delivery Nasal Cannula O2 Flow Rate 2.0 Intake and Output 03/31/17 03/31/17 04/01/17 15:00 23:00 07:00 Intake Total 500 ml 200 ml Output Total 0 ml Balance 500 ml 200 ml RACHELL JACKMAN MD Apr 01, 2017 11:40
--- NOTE | 2017-04-01 11:43 | PDOC ---
Renal-Progress Notes Subjective Notes Notes FEELING BETTER History of Present Illness Hx of present illness STABLE Vitals Vitals Vital Signs Date Time Temp Pulse Resp B/P (MAP) Pulse Ox O2 Delivery O2 Flow Rate FiO2 04/01/17 11:00 97.9 68 20 171/47 (88) 98 Nasal Cannula 2.0 97.9 Weight Weight [ ] I.O. Intake and Output Intake and Output 04/01/17 07:00 Intake Total 700 ml Output Total 0 ml Balance 700 ml Intake Oral 700 ml Output Urine Total 0 ml # Voids 2 Labs Labs Laboratory Tests Test 03/31/17 18:39 03/31/17 20:31 04/01/17 07:24 04/01/17 07:48 Glucose (Fingerstick) 70 mg/dL (70-99) 147 mg/dL (70-99) 156 mg/dL (70-99) White Blood Count 7.0 x10^3/uL (4.0-11.0) Red Blood Count 3.61 x10^6/uL (3.50-5.40) Hemoglobin 10.4 g/dL (12.0-15.5) Hematocrit 32.1 % (36.0-47.0) Mean Corpuscular Volume 89 fL (79-100) Mean Corpuscular Hemoglobin 29 pg (25-35) Mean Corpuscular Hemoglobin Concent 33 g/dL (31-37) Red Cell Distribution Width 19.1 % (11.5-14.5) Platelet Count 191 x10^3/uL (140-400) Neutrophils (%) (Auto) 68 % (31-73) Lymphocytes (%) (Auto) 15 % (24-48) Monocytes (%) (Auto) 13 % (0-9) Eosinophils (%) (Auto) 2 % (0-3) Basophils (%) (Auto) 1 % (0-3) Neutrophils # (Auto) 4.8 x10^3uL (1.8-7.7) Lymphocytes # (Auto) 1.1 x10^3/uL (1.0-4.8) Monocytes # (Auto) 0.9 x10^3/uL (0.0-1.1) Eosinophils # (Auto) 0.2 x10^3/uL (0.0-0.7) Basophils # (Auto) 0.1 x10^3/uL (0.0-0.2) Prothrombin Time 13.2 SEC (11.7-14.0) Prothromb Time International Ratio 1.1 (0.8-1.1) Sodium Level 140 mmol/L (136-145) Potassium Level 3.8 mmol/L (3.5-5.1) Chloride Level 103 mmol/L (98-107) Carbon Dioxide Level 31 mmol/L (21-32) Anion Gap 6 (6-14) Blood Urea Nitrogen 18 mg/dL (7-20) Creatinine 4.8 mg/dL (0.6-1.0) Estimated GFR (Cockcroft-Gault) 11.2 Glucose Level 158 mg/dL (70-99) Calcium Level 8.1 mg/dL (8.5-10.1) Test 04/01/17 11:03 Glucose (Fingerstick) 154 mg/dL (70-99) Review of Systems Constitutional: yes: alert, oriented Ears/Nose/Throat: Yes: no symptom reported Eyes: Yes: no symptom reported Pulmonary: Yes dyspnea Gastrointestional: Yes: no symptom reported Genitourinary: Yes: no symptom reported Skin: Yes no symptom reported Psychiatric/Neurological: Yes: no symptom reported Physical Exam General Appearance: no apparent distress Heart: S1S2, RRR Abdomen: soft, bowel sounds present Genitourinary: bladder flat Extremities: pulses present Neurology: alert Musculoskeletal: Osteoarthritis, Other (morbid obesity) Assessment Assessment IMP CHO-IMPROVED AFTER HD CHEST TIGHTNESS DM II HTN ANEMIA ESRD ?COPD PLAN CONT WITH HD TTS CARDIOLOGY LILA HOGAN MD Apr 01, 2017 11:43
--- NOTE | 2017-04-01 13:54 | PDOC ---
PROGRESS NOTES Chief Complaint Chief Complaint cc: chest pain A/P Chest pain, possible due to uncontrolled HTN : Echo pending, cardiology following, clinically better. VQ negative, troponin negative. Accelerated HTN POA : prn IV hydralazine, d/w RN, home medications resumed. ESRD ON HD: HD per nephrology DM 2 with hyperglycemia: Levemir with SSI, labs reviewed, Vitals Vitals Vital Signs Date Time Temp Pulse Resp B/P (MAP) Pulse Ox O2 Delivery O2 Flow Rate FiO2 04/01/17 12:47 72 171/47 04/01/17 11:00 97.9 20 98 Nasal Cannula 2.0 97.9 Physical Exam General: Alert, Oriented X3, Cooperative, No acute distress Heart: Regular rate, Normal S1 Lungs: Clear, Other Abdomen: Normal bowel sounds, Soft, No tenderness Extremities: No clubbing Skin: No breakdown, No significant lesion Labs LABS Laboratory Tests Test 03/31/17 18:39 03/31/17 20:31 04/01/17 07:24 04/01/17 07:48 Glucose (Fingerstick) 70 mg/dL (70-99) 147 mg/dL (70-99) 156 mg/dL (70-99) White Blood Count 7.0 x10^3/uL (4.0-11.0) Red Blood Count 3.61 x10^6/uL (3.50-5.40) Hemoglobin 10.4 g/dL (12.0-15.5) Hematocrit 32.1 % (36.0-47.0) Mean Corpuscular Volume 89 fL (79-100) Mean Corpuscular Hemoglobin 29 pg (25-35) Mean Corpuscular Hemoglobin Concent 33 g/dL (31-37) Red Cell Distribution Width 19.1 % (11.5-14.5) Platelet Count 191 x10^3/uL (140-400) Neutrophils (%) (Auto) 68 % (31-73) Lymphocytes (%) (Auto) 15 % (24-48) Monocytes (%) (Auto) 13 % (0-9) Eosinophils (%) (Auto) 2 % (0-3) Basophils (%) (Auto) 1 % (0-3) Neutrophils # (Auto) 4.8 x10^3uL (1.8-7.7) Lymphocytes # (Auto) 1.1 x10^3/uL (1.0-4.8) Monocytes # (Auto) 0.9 x10^3/uL (0.0-1.1) Eosinophils # (Auto) 0.2 x10^3/uL (0.0-0.7) Basophils # (Auto) 0.1 x10^3/uL (0.0-0.2) Prothrombin Time 13.2 SEC (11.7-14.0) Prothromb Time International Ratio 1.1 (0.8-1.1) Sodium Level 140 mmol/L (136-145) Potassium Level 3.8 mmol/L (3.5-5.1) Chloride Level 103 mmol/L (98-107) Carbon Dioxide Level 31 mmol/L (21-32) Anion Gap 6 (6-14) Blood Urea Nitrogen 18 mg/dL (7-20) Creatinine 4.8 mg/dL (0.6-1.0) Estimated GFR (Cockcroft-Gault) 11.2 Glucose Level 158 mg/dL (70-99) Calcium Level 8.1 mg/dL (8.5-10.1) Test 04/01/17 11:03 Glucose (Fingerstick) 154 mg/dL (70-99) Comment Review of Relevant I have reviewed the following items morgan (where applicable) has been applied. Labs Laboratory Tests Test 03/30/17 19:05 03/30/17 20:20 03/31/17 00:42 03/31/17 02:00 White Blood Count 8.1 x10^3/uL (4.0-11.0) 9.0 x10^3/uL (4.0-11.0) Red Blood Count 3.87 x10^6/uL (3.50-5.40) 3.78 x10^6/uL (3.50-5.40) Hemoglobin 11.3 g/dL (12.0-15.5) 10.9 g/dL (12.0-15.5) Hematocrit 34.8 % (36.0-47.0) 34.2 % (36.0-47.0) Mean Corpuscular Volume 90 fL (79-100) 91 fL (79-100) Mean Corpuscular Hemoglobin 29 pg (25-35) 29 pg (25-35) Mean Corpuscular Hemoglobin Concent 32 g/dL (31-37) 32 g/dL (31-37) Red Cell Distribution Width 19.8 % (11.5-14.5) 20.1 % (11.5-14.5) Platelet Count 236 x10^3/uL (140-400) 227 x10^3/uL (140-400) Neutrophils (%) (Auto) 72 % (31-73) 75 % (31-73) Lymphocytes (%) (Auto) 14 % (24-48) 12 % (24-48) Monocytes (%) (Auto) 12 % (0-9) 11 % (0-9) Eosinophils (%) (Auto) 3 % (0-3) 2 % (0-3) Basophils (%) (Auto) 0 % (0-3) 1 % (0-3) Neutrophils # (Auto) 5.9 x10^3uL (1.8-7.7) 6.8 x10^3uL (1.8-7.7) Lymphocytes # (Auto) 1.1 x10^3/uL (1.0-4.8) 1.1 x10^3/uL (1.0-4.8) Monocytes # (Auto) 0.9 x10^3/uL (0.0-1.1) 1.0 x10^3/uL (0.0-1.1) Eosinophils # (Auto) 0.2 x10^3/uL (0.0-0.7) 0.2 x10^3/uL (0.0-0.7) Basophils # (Auto) 0.0 x10^3/uL (0.0-0.2) 0.1 x10^3/uL (0.0-0.2) D-Dimer (Amy) 1.21 ug/mlFEU (0.00-0.50) Sodium Level 141 mmol/L (136-145) 141 mmol/L (136-145) Potassium Level 4.3 mmol/L (3.5-5.1) 4.5 mmol/L (3.5-5.1) Chloride Level 107 mmol/L (98-107) 106 mmol/L (98-107) Carbon Dioxide Level 24 mmol/L (21-32) 21 mmol/L (21-32) Anion Gap 10 (6-14) 14 (6-14) Blood Urea Nitrogen 31 mg/dL (7-20) 32 mg/dL (7-20) Creatinine 6.4 mg/dL (0.6-1.0) 6.9 mg/dL (0.6-1.0) Estimated GFR (Cockcroft-Gault) 8.1 7.4 BUN/Creatinine Ratio 5 (6-20) Glucose Level 224 mg/dL (70-99) 249 mg/dL (70-99) Calcium Level 8.4 mg/dL (8.5-10.1) 8.2 mg/dL (8.5-10.1) Total Bilirubin 0.5 mg/dL (0.2-1.0) Aspartate Amino Transf (AST/SGOT) 13 U/L (15-37) Alanine Aminotransferase (ALT/SGPT) 18 U/L (14-59) Alkaline Phosphatase 83 U/L (46-116) Creatine Kinase 229 U/L (26-192) Creatine Kinase MB (Mass) 1.1 ng/mL (0.0-3.6) Creatine Kinase MB Relative Index 0.5 % (0-4) Troponin I Quantitative < 0.017 ng/mL (0.000-0.055) < 0.017 ng/mL (0.000-0.055) FJ-Dzs-N-Type Natriuretic Peptide 3240 pg/mL (0-124) Total Protein 6.6 g/dL (6.4-8.2) Albumin 3.4 g/dL (3.4-5.0) Albumin/Globulin Ratio 1.1 (1.0-1.7) Glucose (Fingerstick) 169 mg/dL (70-99) Triglycerides Level 58 mg/dL (0-150) Cholesterol Level 129 mg/dL (0-200) LDL Cholesterol, Calculated 52 mg/dL (0-100) VLDL Cholesterol, Calculated 12 mg/dL (0-40) Non-HDL Cholesterol Calculated 64 mg/dL (0-129) HDL Cholesterol 65 mg/dL (40-60) Cholesterol/HDL Ratio 2.0 Thyroid Stimulating Hormone (TSH) 0.918 uIU/mL (0.358-3.74) Test 03/31/17 08:00 03/31/17 08:45 03/31/17 11:34 03/31/17 18:39 Glucose (Fingerstick) 214 mg/dL (70-99) 200 mg/dL (70-99) 70 mg/dL (70-99) Prothrombin Time 13.4 SEC (11.7-14.0) Prothromb Time International Ratio 1.1 (0.8-1.1) Troponin I Quantitative < 0.017 ng/mL (0.000-0.055) Test 03/31/17 20:31 04/01/17 07:24 04/01/17 07:48 04/01/17 11:03 Glucose (Fingerstick) 147 mg/dL (70-99) 156 mg/dL (70-99) 154 mg/dL (70-99) White Blood Count 7.0 x10^3/uL (4.0-11.0) Red Blood Count 3.61 x10^6/uL (3.50-5.40) Hemoglobin 10.4 g/dL (12.0-15.5) Hematocrit 32.1 % (36.0-47.0) Mean Corpuscular Volume 89 fL (79-100) Mean Corpuscular Hemoglobin 29 pg (25-35) Mean Corpuscular Hemoglobin Concent 33 g/dL (31-37) Red Cell Distribution Width 19.1 % (11.5-14.5) Platelet Count 191 x10^3/uL (140-400) Neutrophils (%) (Auto) 68 % (31-73) Lymphocytes (%) (Auto) 15 % (24-48) Monocytes (%) (Auto) 13 % (0-9) Eosinophils (%) (Auto) 2 % (0-3) Basophils (%) (Auto) 1 % (0-3) Neutrophils # (Auto) 4.8 x10^3uL (1.8-7.7) Lymphocytes # (Auto) 1.1 x10^3/uL (1.0-4.8) Monocytes # (Auto) 0.9 x10^3/uL (0.0-1.1) Eosinophils # (Auto) 0.2 x10^3/uL (0.0-0.7) Basophils # (Auto) 0.1 x10^3/uL (0.0-0.2) Prothrombin Time 13.2 SEC (11.7-14.0) Prothromb Time International Ratio 1.1 (0.8-1.1) Sodium Level 140 mmol/L (136-145) Potassium Level 3.8 mmol/L (3.5-5.1) Chloride Level 103 mmol/L (98-107) Carbon Dioxide Level 31 mmol/L (21-32) Anion Gap 6 (6-14) Blood Urea Nitrogen 18 mg/dL (7-20) Creatinine 4.8 mg/dL (0.6-1.0) Estimated GFR (Cockcroft-Gault) 11.2 Glucose Level 158 mg/dL (70-99) Calcium Level 8.1 mg/dL (8.5-10.1) Laboratory Tests Test 03/31/17 18:39 03/31/17 20:31 04/01/17 07:24 04/01/17 07:48 Glucose (Fingerstick) 70 mg/dL (70-99) 147 mg/dL (70-99) 156 mg/dL (70-99) White Blood Count 7.0 x10^3/uL (4.0-11.0) Red Blood Count 3.61 x10^6/uL (3.50-5.40) Hemoglobin 10.4 g/dL (12.0-15.5) Hematocrit 32.1 % (36.0-47.0) Mean Corpuscular Volume 89 fL (79-100) Mean Corpuscular Hemoglobin 29 pg (25-35) Mean Corpuscular Hemoglobin Concent 33 g/dL (31-37) Red Cell Distribution Width 19.1 % (11.5-14.5) Platelet Count 191 x10^3/uL (140-400) Neutrophils (%) (Auto) 68 % (31-73) Lymphocytes (%) (Auto) 15 % (24-48) Monocytes (%) (Auto) 13 % (0-9) Eosinophils (%) (Auto) 2 % (0-3) Basophils (%) (Auto) 1 % (0-3) Neutrophils # (Auto) 4.8 x10^3uL (1.8-7.7) Lymphocytes # (Auto) 1.1 x10^3/uL (1.0-4.8) Monocytes # (Auto) 0.9 x10^3/uL (0.0-1.1) Eosinophils # (Auto) 0.2 x10^3/uL (0.0-0.7) Basophils # (Auto) 0.1 x10^3/uL (0.0-0.2) Prothrombin Time 13.2 SEC (11.7-14.0) Prothromb Time International Ratio 1.1 (0.8-1.1) Sodium Level 140 mmol/L (136-145) Potassium Level 3.8 mmol/L (3.5-5.1) Chloride Level 103 mmol/L (98-107) Carbon Dioxide Level 31 mmol/L (21-32) Anion Gap 6 (6-14) Blood Urea Nitrogen 18 mg/dL (7-20) Creatinine 4.8 mg/dL (0.6-1.0) Estimated GFR (Cockcroft-Gault) 11.2 Glucose Level 158 mg/dL (70-99) Calcium Level 8.1 mg/dL (8.5-10.1) Test 04/01/17 11:03 Glucose (Fingerstick) 154 mg/dL (70-99) Medications Current Medications Albuterol/ Ipratropium (Duoneb) 3 ml 1X ONCE NEB Last administered on 19:14; Start 03/30/17 at 19:00; Stop 03/30/17 at 19:03; Status DC Ondansetron HCl (Zofran) 4 mg PRN Q8HRS PRN IV NAUSEA/VOMITING; Start 03/30/17 at 22:00; Stop 03/31/17 at 14:12; Status DC Albuterol/ Ipratropium (Duoneb) 3 ml RTQID NEB Last administered on 04/01/17 07:47; Start 03/31/17 at 08:00; Stop 04/01/17 at 07:59; Status DC Acetaminophen (Tylenol) 325 mg PRN Q6HRS PRN PO MILD PAIN / TEMP; Start at 00:00 Acetaminophen/ Hydrocodone Bitart (Lortab 5/325) 1 tab PRN Q6HRS PRN PO MODERATE TO SEVERE PAIN; Start 03/31/17 at 00:00 Hydralazine HCl (Apresoline) 10 mg PRN Q4HRS PRN IVP ELEVATED BP, SEE COMMENTS Last administered on 04/01/17 04:08; Start 03/31/17 at 00:00 Ondansetron HCl (Zofran) 4 mg PRN Q8HRS PRN IV NAUSEA/VOMITING; Start 03/31/17 at 00:00 Albuterol Sulfate (Ventolin Neb Soln) 2.5 mg PRN Q4HRS PRN NEB SHORTNESS OF BREATH Last administered on 03/31/17 04:17; Start 03/31/17 at 00:00 Amlodipine Besylate (Norvasc) 10 mg DAILY PO Last administered on 04/01/17 08: 34; Start 03/31/17 at 09:00 Aspirin (Children'S Aspirin) 81 mg DAILY PO Last administered on 04/01/17 08: 34; Start 03/31/17 at 09:00 Clonidine HCl (Catapres) 0.3 mg QID PO Last administered on 04/01/17 12:47; Start 03/31/17 at 09:00 Clopidogrel Bisulfate (Plavix) 75 mg DAILY PO Last administered on 04/01/17 08 :35; Start 03/31/17 at 09:00 Docusate Sodium (Colace) 200 mg BID PO Last administered on 04/01/17 08:34; Start 03/31/17 at 09:00 Insulin Aspart (NovoLOG) 15 units TIDWMEALS SQ Last administered on 04/01/17 08:42; Start 03/31/17 at 08:00 Lisinopril (Prinivil) 40 mg BID PO Last administered on 04/01/17 08:39; Start 03/31/17 at 09:00 Metoclopramide HCl (Reglan) 5 mg PRN TID PRN PO NAUSEA; Start 03/31/17 at 00:15 Ondansetron HCl (Zofran Odt) 4 mg PRN Q6HRS PRN PO NAUSEA Last administered on 04/01/17 11:55; Start 03/31/17 at 00:00 Sevelamer Carbonate (Renvela) 2.4 gm TIDWMEALS PO Last administered on 12:47; Start 03/31/17 at 08:00 Hydralazine HCl (Apresoline) 100 mg TID PO Last administered on 04/01/17 08:35 ; Start 03/31/17 at 09:00 Insulin Detemir (Levemir) 18 units QHS SQ Last administered on 03/31/17 20:39 ; Start 03/31/17 at 21:00 Labetalol HCl (Trandate) 300 mg QID PO Last administered on 04/01/17 12:46; Start 03/31/17 at 09:00 Promethazine HCl (Phenergan) 25 mg PRN Q6HRS PRN PO NAUSEA/VOMITING Last administered on 04/01/17 12:45; Start 03/30/17 at 23:45 Nicardipine HCl 50 mg/Sodium Chloride 270 ml @ 0 mls/hr CONT PRN IV SEE I/O RECORD Last administered on 03/31/17 03:14; Start 03/31/17 at 00:00; Stop 03/31 at 11:13; Status DC Insulin Aspart (NovoLOG) 0-9 UNITS TIDWMEALS SQ ; Start 03/31/17 at 08:00; Status Cancel Dextrose (Dextrose 50%-Water Syringe) 12.5 gm PRN Q15MIN PRN IV SEE COMMENTS; Start 03/31/17 at 00:00 Heparin Sodium/ Dextrose 500 ml @ 0 mls/hr CONT PRN IV SEE I/O RECORD; Start at 00:15; Stop 03/31/17 at 11:13; Status DC Heparin Sodium (Porcine) (Heparin Sodium) 3,400 unit PRN Q6HRS PRN IV FOR UFH LEVEL LESS THAN 0.2; Start 03/31/17 at 00:15; Stop 03/31/17 at 11:18; Status DC Heparin Sodium (Porcine) (Heparin Sodium) 1,700 unit PRN Q6HRS PRN IV FOR UFH LEVEL 0.2 - 0.29; Start 03/31/17 at 00:15; Stop 03/31/17 at 11:18; Status DC Warfarin Sodium (Coumadin Per Pharmacy) 1 each PRN DAILY PRN MC PER PROTOCOL Last administered on 03/31/17 09:03; Start 03/31/17 at 00:15; Stop 03/31/17 at 17:24; Status DC Hydralazine HCl (Apresoline) 20 mg 1X ONCE IVP Last administered on 03/31/17 00:45; Start 03/31/17 at 00:30; Stop 03/31/17 at 00:31; Status DC Insulin Aspart (NovoLOG) 0-9 UNITS TIDWMEALS SQ ; Start 03/31/17 at 00:30 Dextrose (Dextrose 50%-Water Syringe) 12.5 gm PRN Q15MIN PRN IV SEE COMMENTS; Start 03/31/17 at 00:15; Status UNV Info (Anti-Coagulation Monitoring By Pharmacy) 1 each PRN DAILY PRN MC SEE COMMENTS Last administered on 03/31/17 06:44; Start 03/31/17 at 02:30; Stop at 11:18; Status DC Darbepoetin Herbert (Aranesp) 60 mcg Sa SQ Last administered on 03/31/17 20:33; Start 03/31/17 at 21:00 Info (PHARMACY MONITORING -- do not chart) 1 each PRN DAILY PRN MC SEE COMMENTS ; Start 03/31/17 at 11:30; Stop 03/31/17 at 16:17; Status DC Sodium Chloride 1,000 ml @ 1,000 mls/hr Q1H PRN IV hypotension; Start 03/31/17 at 16:06; Stop 03/31/17 at 22:05; Status DC Sodium Chloride 1,000 ml @ 400 mls/hr Q2H30M PRN IV PATENCY; Start 03/31/17 at 16:06; Stop 04/01/17 at 04:05; Status DC Info (PHARMACY MONITORING -- do not chart) 1 each PRN DAILY PRN MC SEE COMMENTS ; Start 03/31/17 at 16:15 Active Scripts Active Promethazine Hcl 25 Mg Tablet 25 Mg PO Q6H PRN Reported Reglan (Metoclopramide Hcl) 10 Mg Tablet 10 Tab PO PRN TID Zofran Odt (Ondansetron) 4 Mg Tab.rapdis 4 Mg PO PRN Q6HRS Labetalol Hcl 300 Mg Tablet 1 Tab PO QID Novolog Flexpen (Insulin Aspart) 100 Unit/1 Ml Insuln.pen 15 Units SQ TIDWMEALS Levemir (Insulin Detemir) 100 Unit/1 Ml Vial 18 Unit SQ QHS Colace (Docusate Sodium) 100 Mg Capsule 200 Mg PO BID Renvela (Sevelamer Carbonate) 2.4 Gm Powd.pack 2.4 Gm PO TIDWMEALS Plavix (Clopidogrel Bisulfate) 75 Mg Tablet 75 Mg PO DAILY Hydralazine Hcl 100 Mg Tablet 100 Mg PO TID Amlodipine Besylate 10 Mg Tablet 10 Mg PO DAILY Nephro-Jill Tablet (Folic Acid/Vitamin B Comp W-C) 0.8 Mg Tablet 0.8 Mg PO DAILY Aspirin 81 Mg Tab.chew 81 Mg PO DAILY Miralax (Polyethylene Glycol 3350) 17 Gm Powd.pack 17 Gm PO DAILY Lisinopril 40 Mg Tablet 40 Mg PO BID Clonidine Hcl 0.3 Mg Tablet 0.3 Mg PO QID Vitals/I & O Vital Sign - Last 24 Hours 03/31/17 03/31/17 03/31/17 03/31/17 18:52 18:52 19:45 20:00 Temp 98.4 98.4 Pulse 84 83 76 Resp 19 B/P (MAP) 184/68 184/68 185/63 (103) Pulse Ox 95 O2 Delivery Nasal Cannula Nasal Cannula O2 Flow Rate 2.0 2.0 03/31/17 03/31/17 03/31/17 03/31/17 20:15 20:33 20:34 20:34 Pulse 76 76 76 B/P (MAP) 185/63 185/63 185/63 Pulse Ox 100 O2 Delivery Nasal Cannula O2 Flow Rate 2.0 03/31/17 03/31/17 04/01/17 04/01/17 20:35 23:19 03:07 04:08 Temp 98.6 98.5 98.6 98.5 Pulse 76 82 78 72 Resp 20 24 B/P (MAP) 185/63 176/55 (95) 179/65 (103) 179/65 Pulse Ox 93 94 O2 Delivery Nasal Cannula Nasal Cannula O2 Flow Rate 2.0 2.0 04/01/17 04/01/17 04/01/17 04/01/17 07:00 07:47 07:48 08:34 Temp 97.9 97.9 Pulse 71 73 Resp 20 B/P (MAP) 174/54 (94) 174/54 Pulse Ox 98 97 O2 Delivery Nasal Cannula Nasal Cannula Nasal Cannula O2 Flow Rate 2.0 2.0 2.0 04/01/17 04/01/17 04/01/17/18/17 08:35 08:35 08:36 08:39 Pulse 74 73 74 74 B/P (MAP) 175/54 175/54 174/54 174/75 04/01/17 04/01/17 04/01/17 11:00 12:46 12:47 Temp 97.9 97.9 Pulse 68 73 72 Resp 20 B/P (MAP) 171/47 (88) 171/47 171/47 Pulse Ox 98 O2 Delivery Nasal Cannula O2 Flow Rate 2.0 Intake and Output 03/31/17 03/31/17 04/01/17 15:00 23:00 07:00 Intake Total 500 ml 200 ml Output Total 0 ml Balance 500 ml 200 ml JULIANNA CHRIS MD Apr 01, 2017 13:54
--- NOTE | 2017-04-01 13:58 | CARD ---
APPROVED REPORT EXAM: Two-dimensional and M-mode echocardiogram with Doppler and color Doppler. Other Information Quality : Good INDICATION Dyspnea Chest Pain 2D DIMENSIONS RVDd2.4 (2.9-3.5cm)Left Atrium(2D)4.2 (1.6-4.0cm) IVSd1.1 (0.7-1.1cm)Aortic Root(2D)2.6 (2.0-3.7cm) LVDd4.8 (3.9-5.9cm)LVOT Diameter1.9 (1.8-2.4cm) PWd1.2 (0.7-1.1cm)LVDs2.9 (2.5-4.0cm) FS (%) 40.3 %SV77.7 ml LVEF(%)60.0 (>50%) Aortic Valve AoV Peak Rajiv.166.5cm/Lorin Peak GR.11.1mmHg Mitral Valve MV E Uwcvewwl679.2cm/sMV DECEL LXPL120go MV A Mrjsfgrf160.7cm/sE/A Ratio1.1 TDI Lateral E' P. V7.72cm/sMedial E' P. V5.92cm/s E/Lateral E'17.1E/Medial E'22.3 Tricuspid Valve TR P. Jmpmsdqb234gm/sRAP ODJVAENP1jjQo TR Peak Gr.62utIwOIJJ55ruTq Pulmonary Vein S1 Ffczokoa70.4cm/sS2 Hierfflt13.39cm/s D2 Xhubufft76.4cm/s LEFT VENTRICLE The left ventricle is normal size. There is mild concentric left ventricular hypertrophy. The left ve ntricular systolic function is normal. The Ejection Fraction is 55-60%. There is normal LV segmental wall motion. Transmitral Doppler flow pattern is Grade II-pseudonormal filling dynamics. RIGHT VENTRICLE The right ventricle is normal size. The right ventricular systolic function is normal. ATRIA The left atrium is mildly dilated. The right atrium size is normal. The interatrial septum is intact with no evidence for an atrial septal defect or patent foramen ovale as noted on 2-D or Doppler imagi ng. AORTIC VALVE The aortic valve is normal in structure and function. Doppler and Color Flow revealed no significant aortic regurgitation. There is no significant aortic valvular stenosis. MITRAL VALVE The mitral valve is calcified but opens well. Mitral annular calcification is mild. There is no evide nce of mitral valve prolapse. There is no mitral valve stenosis. Doppler and Color-flow revealed trac e mitral regurgitation. TRICUSPID VALVE The tricuspid valve is normal in structure and function. Doppler and Color Flow revealed trace tricus pid regurgitation. There is moderate pulmonary hypertension. The PA pressure was estimated at 41 mmHg . There is no tricuspid valve stenosis. PULMONIC VALVE The pulmonary valve is normal in structure and function. Doppler and Color Flow revealed trace pulmon ic valvular regurgitation. There is no pulmonic valvular stenosis. GREAT VESSELS The aortic root is normal in size. The ascending aorta is normal in size. The IVC is normal in size a nd collapses <50% with inspiration. PERICARDIAL EFFUSION There is no evidence of significant pericardial effusion. Critical Notification Critical Value: No <Conclusion> The left ventricular systolic function is normal. The Ejection Fraction is 55-60%. There is normal LV segmental wall motion. The left atrium is mildly dilated. Trace mitral regurgitation. Trace tricuspid regurgitation. There is no evidence of significant pericardial effusion.
[2017-04-01 14:54] VITALS: BP 153/48
[2017-04-01 19:25] VITALS: BP 151/60
[2017-04-01] MEDS: INSULIN DETEMIR 300 UNITS/3 ML INSULN.PEN. SQ SCH (21:13)
[2017-04-01 23:10] VITALS: BP 134/50
[2017-04-02 03:00] VITALS: BP 139/38
[2017-04-02 04:19] LABS: CALCIUM 7.8 mg/dL (8.5-10.1); CREATININE 6.5 mg/dL (0.6-1.0); GFR 7.9; POTASSIUM 4.2 mmol/L (3.5-5.1)
[2017-04-02 04:30] LABS: BASO % 0 % (0-3); EOS % 3 % (0-3); HEMOGLOBIN 9.9 g/dL (12.0-15.5); LYMPH # 1.2 x10^3/uL (1.0-4.8); LYMPH % 16 % (24-48); MEAN CORPUSCULAR HEMOGLOBIN 29 pg (25-35); MEAN CORPUSCULAR HGB CONC 32 g/dL (31-37); MEAN CORPUSCULAR VOLUME 91 fL (79-100); MONO % 14 % (0-9); NEUT % 67 % (31-73); PLATELET COUNT 188 x10^3/uL (140-400); RED BLOOD COUNT 3.42 x10^6/uL (3.50-5.40); RED CELL DISTRIBUTION WIDTH 18.9 % (11.5-14.5); WHITE BLOOD COUNT 7.4 x10^3/uL (4.0-11.0)
[2017-04-02 04:40] LABS: INR 1.1 (0.8-1.1); PROTHROMBIN TIME PATIENT 13.3 SEC (11.7-14.0)
[2017-04-02 07:20] VITALS: BP 149/52
[2017-04-02] MEDS: INSULIN ASPART 300 UNITS/3 ML INSULN.PEN SQ SCH ×6 (08:00→17:00)
[2017-04-02] MEDS: DOCUSATE SODIUM 100 MG CAPSULE. PO SCH ×2 (09:02→21:09)
[2017-04-02] MEDS: CLOPIDOGREL BISULFATE 75 MG TABLET PO SCH (09:02)
[2017-04-02] MEDS: ASPIRIN CHEWABLE 81 MG TABLET. PO SCH (09:02)
[2017-04-02] MEDS: SEVELAMER CARBONATE 2.4 GM PACKET. PO SCH ×3 (09:02→17:43)
[2017-04-02] MEDS: amLODIPine BESYLATE 10 MG TABLET PO SCH (09:03)
[2017-04-02] MEDS: cloNIDine HCL 0.3 MG TABLET PO SCH ×4 (09:03→21:07)
[2017-04-02] MEDS: LISINOPRIL 40 MG TABLET. PO SCH ×2 (09:04→21:09)
[2017-04-02] MEDS: LABETALOL HCL 200 MG TABLET PO SCH ×4 (09:05→21:08)
--- NOTE | 2017-04-02 10:06 | HP ---
ADMIT DATE: 03/31/2017 CHIEF COMPLAINT: Chest pain, chest pressure HISTORY OF PRESENT ILLNESS: A 57-year-old female patient with hypertension and chronic kidney disease and end-stage renal disease, presented to the ER with complaint of shortness of breath and increased chest pain. Symptoms have been there for nearly 2 weeks with increased leg swelling and SOB Denies any noncompliance to medication and missed HD. The patient denies any syncope at present and no other complaints. Symptoms improved after controlling her blood pressure in the hospital. PAST MEDICAL HISTORY: Hypertension, COPD, vertigo, GERD, anemia, constipation, osteoarthritis, chronic renal insufficiency, end-stage renal disease, diabetes mellitus. PAST SURGICAL HISTORY: , AV graft placement. FAMILY HISTORY: Coronary artery disease, diabetes. SOCIAL HISTORY: Currently smokes one pack a day, alcohol rare. ALLERGIES: NKDA. LABORATORY DATA: CBC within normal limits. Chemistry: Sodium 141, potassium 4.5, chloride is 106, bicarb 21, BUN is 32, creatinine is 6.9, glucose is 249, troponin 3 sets, less than 0.017. IMAGING STUDIES: 1. V/Q scan negative. 2. Chest x-ray: Moderate cardiomegaly and suspect underlying right-sided pleural effusion. 3. Lower extremity ultrasound, negative DVT. 4. EKG, not able to obtain and as per the ER report, no acute ST-T wave changes noted. ASSESSMENT: 1. Acute shortness of breath possibly due to uncontorlled HTN 2. Accelerated HTN 3. Severe end-stage renal disease, on hemodialysis. 4. elevated troponins 5. Hyperglycemia PLAN: on Nicardipine gtt to control BP, resume home medications, try IV lasix prn The patient had a mild elevation of the D-dimer but CTA negative, Echocardiogram has been ordered. hemodialysis either today or tomorrow Monitor troponin d/w cardiology SSI with Esmer. possible stress test. JULIANNA CHRIS MD DR: ROCK/kiran JOB#: [id number] / [id number] YAMIL
--- NOTE | 2017-04-02 11:16 | PDOC ---
SUBJECTIVE ROS ESRD Doign and feeling well for now CVS: no Orthopnea, no CP RESP: no SOB, no CHO GI: no Nausea, no Vomiting : no Dysuria, no Urgency OBJECTIVE Vital Signs Vital Signs Date Time Temp Pulse Resp B/P (MAP) Pulse Ox O2 Delivery O2 Flow Rate FiO2 04/02/17 09:05 75 149/52 04/02/17 08:33 Nasal Cannula 2.0 04/02/17 07:20 98.1 22 94 98.1 I & 0 Intake and Output 04/02/17 07:00 Intake Total 520 ml Balance 520 ml Intake Oral 520 ml # Voids 3 # Bowel Movements 1 PHYSICAL EXAM Physical Exam GEN: Awake, Oriented x 3, In no distress; Obese EYES: Vision Unchanged, Conjunctiva Normal EN: No EN Drainage, Mucous Membranes moist NECK: no JVD, no JVP, Supple, no Thyromegaly CVS: S1S2, ? Murmur, No Gallop, No Rub,no Edema RESP: juan lower lobe Rales, no Rhonchi,no Acc. Muscle Use GI: BS + ve, NO Bruit, Non Tender, Non Distended; obese : no CVA tenderness, no Suprapubic Tenderness DIAGNOSIS/ASSESSMENT Assessment & Plan ESRD: Current fluid and E-lyte status does not necessitate emergent need for dialysis. Will re-evaluate for dialysis in the am and continue on TTSat schedule. ? fl Overload, Pl Eff - d/w pt re possible extra HD - she would rather go tomorrow on her regular schedule. She claims she still urinates so will use IV Lasix ANEMIA; Aranap as ordered, Transfuse with next HD as needed HTN: Current BP meds as reviewed. See orders for changes. BONE & MINERAL: follow phos and alter binder regimen as needed Discussed Plan of Care with pt at bedside Problems: COMMENT/RELEVANT DATA Meds Current Medications Medications (Trade) Dose Ordered Sig/Anil Start Time Stop Time Status Last Admin Dose Admin Acetaminophen (Tylenol) 325 mg PRN Q6HRS PRN 03/31/17 00:00 Acetaminophen/ Hydrocodone Bitart (Lortab 5/325) 1 tab PRN Q6HRS PRN 03/31/17 00:00 Albuterol Sulfate (Ventolin Neb Soln) 2.5 mg PRN Q4HRS PRN 03/31/17 00:00 03/31/17 04:17 2.5 MG Albuterol/ Ipratropium (Duoneb) 3 ml RTQID 03/31/17 08:00 04/01/17 07:59 DC 04/01/17 07:47 3 ML Amlodipine Besylate (Norvasc) 10 mg DAILY 03/31/17 09:00 04/02/17 09:03 10 MG Aspirin (Children'S Aspirin) 81 mg DAILY 03/31/17 09:00 04/02/17 09:02 81 MG Clonidine HCl (Catapres) 0.3 mg QID 03/31/17 09:00 04/02/17 09:03 0.3 MG Clopidogrel Bisulfate (Plavix) 75 mg DAILY 03/31/17 09:00 04/02/17 09:02 75 MG Darbepoetin Herbert (Aranesp) 60 mcg Sa 03/31/17 21:00 03/31/17 20:33 60 MCG Dextrose (Dextrose 50%-Water Syringe) 12.5 gm PRN Q15MIN PRN 03/31/17 00:15 UNV Docusate Sodium (Colace) 200 mg BID 03/31/17 09:00 04/02/17 09:02 200 MG Heparin Sodium (Porcine) (Heparin Sodium) 1,700 unit PRN Q6HRS PRN 03/31/17 00:15 03/31/17 11:18 DC Heparin Sodium/ Dextrose 500 ml @ 0 mls/hr CONT PRN 03/31/17 00:15 03/31/17 11:13 DC Hydralazine HCl (Apresoline) 20 mg 1X ONCE 03/31/17 00:30 03/31/17 00:31 DC 03/31/17 00:45 20 MG Info (Anti-Coagulation Monitoring By Pharmacy) 1 each PRN DAILY PRN 03/31/17 02:30 03/31/17 11:18 DC 03/31/17 06:44 1 EACH Info (PHARMACY MONITORING -- do not chart) 1 each PRN DAILY PRN 03/31/17 16:15 Insulin Aspart (NovoLOG) 0-9 UNITS TIDWMEALS 03/31/17 00:30 04/01/17 17:28 4 UNITS Insulin Detemir (Levemir) 18 units QHS 03/31/17 21:00 04/01/17 21:13 15 UNITS Labetalol HCl (Trandate) 300 mg QID 03/31/17 09:00 04/02/17 09:05 300 MG Lisinopril (Prinivil) 40 mg BID 03/31/17 09:00 04/02/17 09:04 40 MG Metoclopramide HCl (Reglan) 5 mg PRN TID PRN 03/31/17 00:15 Nicardipine HCl 50 mg/Sodium Chloride 270 ml @ 0 mls/hr CONT PRN 03/31/17 00:00 03/31/17 11:13 DC 03/31/17 03:14 25 MLS/HR Ondansetron HCl (Zofran Odt) 4 mg PRN Q6HRS PRN 03/31/17 00:00 04/01/17 11:55 4 MG Ondansetron HCl (Zofran) 4 mg PRN Q8HRS PRN 03/31/17 00:00 Promethazine HCl (Phenergan) 25 mg PRN Q6HRS PRN 03/30/17 23:45 04/01/17 12:45 25 MG Sevelamer Carbonate (Renvela) 2.4 gm TIDWMEALS 03/31/17 08:00 04/02/17 09:02 2.4 GM Sodium Chloride 1,000 ml @ 400 mls/hr Q2H30M PRN 03/31/17 16:06 04/01/17 04:05 DC Warfarin Sodium (Coumadin Per Pharmacy) 1 each PRN DAILY PRN 03/31/17 00:15 03/31/17 17:24 DC 03/31/17 09:03 1 EACH Lab Laboratory Tests Test 04/01/17 16:38 04/01/17 20:49 04/02/17 03:25 04/02/17 07:49 Glucose (Fingerstick) 154 mg/dL (70-99) 151 mg/dL (70-99) 138 mg/dL (70-99) White Blood Count 7.4 x10^3/uL (4.0-11.0) Red Blood Count 3.42 x10^6/uL (3.50-5.40) Hemoglobin 9.9 g/dL (12.0-15.5) Hematocrit 31.0 % (36.0-47.0) Mean Corpuscular Volume 91 fL (79-100) Mean Corpuscular Hemoglobin 29 pg (25-35) Mean Corpuscular Hemoglobin Concent 32 g/dL (31-37) Red Cell Distribution Width 18.9 % (11.5-14.5) Platelet Count 188 x10^3/uL (140-400) Neutrophils (%) (Auto) 67 % (31-73) Lymphocytes (%) (Auto) 16 % (24-48) Monocytes (%) (Auto) 14 % (0-9) Eosinophils (%) (Auto) 3 % (0-3) Basophils (%) (Auto) 0 % (0-3) Neutrophils # (Auto) 4.9 x10^3uL (1.8-7.7) Lymphocytes # (Auto) 1.2 x10^3/uL (1.0-4.8) Monocytes # (Auto) 1.0 x10^3/uL (0.0-1.1) Eosinophils # (Auto) 0.2 x10^3/uL (0.0-0.7) Basophils # (Auto) 0.0 x10^3/uL (0.0-0.2) Prothrombin Time 13.3 SEC (11.7-14.0) Prothromb Time International Ratio 1.1 (0.8-1.1) Sodium Level 140 mmol/L (136-145) Potassium Level 4.2 mmol/L (3.5-5.1) Chloride Level 104 mmol/L (98-107) Carbon Dioxide Level 30 mmol/L (21-32) Anion Gap 6 (6-14) Blood Urea Nitrogen 32 mg/dL (7-20) Creatinine 6.5 mg/dL (0.6-1.0) Estimated GFR (Cockcroft-Gault) 7.9 Glucose Level 190 mg/dL (70-99) Calcium Level 7.8 mg/dL (8.5-10.1) CHEL MORFIN MD Apr 02, 2017 11:16
[2017-04-02 11:20] VITALS: BP 166/47
--- NOTE | 2017-04-02 11:49 | PDOC ---
PROGRESS NOTES Chief Complaint Chief Complaint cc: chest pain A/P Chest pain, possible due to uncontrolled HTN : Echo pending, cardiology following, clinically better. VQ negative, troponin negative. Accelerated HTN POA : prn IV hydralazine, d/w RN, home medications resumed. IV lasix today, ESRD ON HD: HD per nephrology DM 2 with hyperglycemia: Levemir with SSI, labs reviewed, Vitals Vitals Vital Signs Date Time Temp Pulse Resp B/P (MAP) Pulse Ox O2 Delivery O2 Flow Rate FiO2 04/02/17 11:20 98.1 69 20 166/47 (86) 97 Nasal Cannula 2.0 98.1 Physical Exam General: Alert, Oriented X3, Cooperative, No acute distress Heart: Regular rate, Normal S1 Lungs: Clear, Other Abdomen: Normal bowel sounds, Soft, No tenderness Extremities: No clubbing Labs LABS Laboratory Tests Test 04/01/17 16:38 04/01/17 20:49 04/02/17 03:25 04/02/17 07:49 Glucose (Fingerstick) 154 mg/dL (70-99) 151 mg/dL (70-99) 138 mg/dL (70-99) White Blood Count 7.4 x10^3/uL (4.0-11.0) Red Blood Count 3.42 x10^6/uL (3.50-5.40) Hemoglobin 9.9 g/dL (12.0-15.5) Hematocrit 31.0 % (36.0-47.0) Mean Corpuscular Volume 91 fL (79-100) Mean Corpuscular Hemoglobin 29 pg (25-35) Mean Corpuscular Hemoglobin Concent 32 g/dL (31-37) Red Cell Distribution Width 18.9 % (11.5-14.5) Platelet Count 188 x10^3/uL (140-400) Neutrophils (%) (Auto) 67 % (31-73) Lymphocytes (%) (Auto) 16 % (24-48) Monocytes (%) (Auto) 14 % (0-9) Eosinophils (%) (Auto) 3 % (0-3) Basophils (%) (Auto) 0 % (0-3) Neutrophils # (Auto) 4.9 x10^3uL (1.8-7.7) Lymphocytes # (Auto) 1.2 x10^3/uL (1.0-4.8) Monocytes # (Auto) 1.0 x10^3/uL (0.0-1.1) Eosinophils # (Auto) 0.2 x10^3/uL (0.0-0.7) Basophils # (Auto) 0.0 x10^3/uL (0.0-0.2) Prothrombin Time 13.3 SEC (11.7-14.0) Prothromb Time International Ratio 1.1 (0.8-1.1) Sodium Level 140 mmol/L (136-145) Potassium Level 4.2 mmol/L (3.5-5.1) Chloride Level 104 mmol/L (98-107) Carbon Dioxide Level 30 mmol/L (21-32) Anion Gap 6 (6-14) Blood Urea Nitrogen 32 mg/dL (7-20) Creatinine 6.5 mg/dL (0.6-1.0) Estimated GFR (Cockcroft-Gault) 7.9 Glucose Level 190 mg/dL (70-99) Calcium Level 7.8 mg/dL (8.5-10.1) Test 04/02/17 11:38 Glucose (Fingerstick) 119 mg/dL (70-99) Comment Review of Relevant I have reviewed the following items morgan (where applicable) has been applied. Labs Laboratory Tests Test 03/31/17 18:39 03/31/17 20:31 04/01/17 07:24 04/01/17 07:48 Glucose (Fingerstick) 70 mg/dL (70-99) 147 mg/dL (70-99) 156 mg/dL (70-99) White Blood Count 7.0 x10^3/uL (4.0-11.0) Red Blood Count 3.61 x10^6/uL (3.50-5.40) Hemoglobin 10.4 g/dL (12.0-15.5) Hematocrit 32.1 % (36.0-47.0) Mean Corpuscular Volume 89 fL (79-100) Mean Corpuscular Hemoglobin 29 pg (25-35) Mean Corpuscular Hemoglobin Concent 33 g/dL (31-37) Red Cell Distribution Width 19.1 % (11.5-14.5) Platelet Count 191 x10^3/uL (140-400) Neutrophils (%) (Auto) 68 % (31-73) Lymphocytes (%) (Auto) 15 % (24-48) Monocytes (%) (Auto) 13 % (0-9) Eosinophils (%) (Auto) 2 % (0-3) Basophils (%) (Auto) 1 % (0-3) Neutrophils # (Auto) 4.8 x10^3uL (1.8-7.7) Lymphocytes # (Auto) 1.1 x10^3/uL (1.0-4.8) Monocytes # (Auto) 0.9 x10^3/uL (0.0-1.1) Eosinophils # (Auto) 0.2 x10^3/uL (0.0-0.7) Basophils # (Auto) 0.1 x10^3/uL (0.0-0.2) Prothrombin Time 13.2 SEC (11.7-14.0) Prothromb Time International Ratio 1.1 (0.8-1.1) Sodium Level 140 mmol/L (136-145) Potassium Level 3.8 mmol/L (3.5-5.1) Chloride Level 103 mmol/L (98-107) Carbon Dioxide Level 31 mmol/L (21-32) Anion Gap 6 (6-14) Blood Urea Nitrogen 18 mg/dL (7-20) Creatinine 4.8 mg/dL (0.6-1.0) Estimated GFR (Cockcroft-Gault) 11.2 Glucose Level 158 mg/dL (70-99) Calcium Level 8.1 mg/dL (8.5-10.1) Test 04/01/17 11:03 04/01/17 16:38 04/01/17 20:49 04/02/17 03:25 Glucose (Fingerstick) 154 mg/dL (70-99) 154 mg/dL (70-99) 151 mg/dL (70-99) White Blood Count 7.4 x10^3/uL (4.0-11.0) Red Blood Count 3.42 x10^6/uL (3.50-5.40) Hemoglobin 9.9 g/dL (12.0-15.5) Hematocrit 31.0 % (36.0-47.0) Mean Corpuscular Volume 91 fL (79-100) Mean Corpuscular Hemoglobin 29 pg (25-35) Mean Corpuscular Hemoglobin Concent 32 g/dL (31-37) Red Cell Distribution Width 18.9 % (11.5-14.5) Platelet Count 188 x10^3/uL (140-400) Neutrophils (%) (Auto) 67 % (31-73) Lymphocytes (%) (Auto) 16 % (24-48) Monocytes (%) (Auto) 14 % (0-9) Eosinophils (%) (Auto) 3 % (0-3) Basophils (%) (Auto) 0 % (0-3) Neutrophils # (Auto) 4.9 x10^3uL (1.8-7.7) Lymphocytes # (Auto) 1.2 x10^3/uL (1.0-4.8) Monocytes # (Auto) 1.0 x10^3/uL (0.0-1.1) Eosinophils # (Auto) 0.2 x10^3/uL (0.0-0.7) Basophils # (Auto) 0.0 x10^3/uL (0.0-0.2) Prothrombin Time 13.3 SEC (11.7-14.0) Prothromb Time International Ratio 1.1 (0.8-1.1) Sodium Level 140 mmol/L (136-145) Potassium Level 4.2 mmol/L (3.5-5.1) Chloride Level 104 mmol/L (98-107) Carbon Dioxide Level 30 mmol/L (21-32) Anion Gap 6 (6-14) Blood Urea Nitrogen 32 mg/dL (7-20) Creatinine 6.5 mg/dL (0.6-1.0) Estimated GFR (Cockcroft-Gault) 7.9 Glucose Level 190 mg/dL (70-99) Calcium Level 7.8 mg/dL (8.5-10.1) Test 04/02/17 07:49 04/02/17 11:38 Glucose (Fingerstick) 138 mg/dL (70-99) 119 mg/dL (70-99) Laboratory Tests Test 04/01/17 16:38 04/01/17 20:49 04/02/17 03:25 04/02/17 07:49 Glucose (Fingerstick) 154 mg/dL (70-99) 151 mg/dL (70-99) 138 mg/dL (70-99) White Blood Count 7.4 x10^3/uL (4.0-11.0) Red Blood Count 3.42 x10^6/uL (3.50-5.40) Hemoglobin 9.9 g/dL (12.0-15.5) Hematocrit 31.0 % (36.0-47.0) Mean Corpuscular Volume 91 fL (79-100) Mean Corpuscular Hemoglobin 29 pg (25-35) Mean Corpuscular Hemoglobin Concent 32 g/dL (31-37) Red Cell Distribution Width 18.9 % (11.5-14.5) Platelet Count 188 x10^3/uL (140-400) Neutrophils (%) (Auto) 67 % (31-73) Lymphocytes (%) (Auto) 16 % (24-48) Monocytes (%) (Auto) 14 % (0-9) Eosinophils (%) (Auto) 3 % (0-3) Basophils (%) (Auto) 0 % (0-3) Neutrophils # (Auto) 4.9 x10^3uL (1.8-7.7) Lymphocytes # (Auto) 1.2 x10^3/uL (1.0-4.8) Monocytes # (Auto) 1.0 x10^3/uL (0.0-1.1) Eosinophils # (Auto) 0.2 x10^3/uL (0.0-0.7) Basophils # (Auto) 0.0 x10^3/uL (0.0-0.2) Prothrombin Time 13.3 SEC (11.7-14.0) Prothromb Time International Ratio 1.1 (0.8-1.1) Sodium Level 140 mmol/L (136-145) Potassium Level 4.2 mmol/L (3.5-5.1) Chloride Level 104 mmol/L (98-107) Carbon Dioxide Level 30 mmol/L (21-32) Anion Gap 6 (6-14) Blood Urea Nitrogen 32 mg/dL (7-20) Creatinine 6.5 mg/dL (0.6-1.0) Estimated GFR (Cockcroft-Gault) 7.9 Glucose Level 190 mg/dL (70-99) Calcium Level 7.8 mg/dL (8.5-10.1) Test 04/02/17 11:38 Glucose (Fingerstick) 119 mg/dL (70-99) Medications Current Medications Albuterol/ Ipratropium (Duoneb) 3 ml 1X ONCE NEB Last administered on 19:14; Start 03/30/17 at 19:00; Stop 03/30/17 at 19:03; Status DC Ondansetron HCl (Zofran) 4 mg PRN Q8HRS PRN IV NAUSEA/VOMITING; Start 03/30/17 at 22:00; Stop 03/31/17 at 14:12; Status DC Albuterol/ Ipratropium (Duoneb) 3 ml RTQID NEB Last administered on 04/01/17 07:47; Start 03/31/17 at 08:00; Stop 04/01/17 at 07:59; Status DC Acetaminophen (Tylenol) 325 mg PRN Q6HRS PRN PO MILD PAIN / TEMP; Start at 00:00 Acetaminophen/ Hydrocodone Bitart (Lortab 5/325) 1 tab PRN Q6HRS PRN PO MODERATE TO SEVERE PAIN; Start 03/31/17 at 00:00 Hydralazine HCl (Apresoline) 10 mg PRN Q4HRS PRN IVP ELEVATED BP, SEE COMMENTS Last administered on 04/01/17 04:08; Start 03/31/17 at 00:00 Ondansetron HCl (Zofran) 4 mg PRN Q8HRS PRN IV NAUSEA/VOMITING; Start 03/31/17 at 00:00 Albuterol Sulfate (Ventolin Neb Soln) 2.5 mg PRN Q4HRS PRN NEB SHORTNESS OF BREATH Last administered on 03/31/17 04:17; Start 03/31/17 at 00:00 Amlodipine Besylate (Norvasc) 10 mg DAILY PO Last administered on 04/02/17 09: 03; Start 03/31/17 at 09:00 Aspirin (Children'S Aspirin) 81 mg DAILY PO Last administered on 04/02/17 09: 02; Start 03/31/17 at 09:00 Clonidine HCl (Catapres) 0.3 mg QID PO Last administered on 04/02/17 09:03; Start 03/31/17 at 09:00 Clopidogrel Bisulfate (Plavix) 75 mg DAILY PO Last administered on 04/02/17 09 :02; Start 03/31/17 at 09:00 Docusate Sodium (Colace) 200 mg BID PO Last administered on 04/02/17 09:02; Start 03/31/17 at 09:00 Insulin Aspart (NovoLOG) 15 units TIDWMEALS SQ Last administered on 04/02/17 09:07; Start 03/31/17 at 08:00 Lisinopril (Prinivil) 40 mg BID PO Last administered on 04/02/17 09:04; Start 03/31/17 at 09:00 Metoclopramide HCl (Reglan) 5 mg PRN TID PRN PO NAUSEA; Start 03/31/17 at 00:15 Ondansetron HCl (Zofran Odt) 4 mg PRN Q6HRS PRN PO NAUSEA Last administered on 04/01/17 11:55; Start 03/31/17 at 00:00 Sevelamer Carbonate (Renvela) 2.4 gm TIDWMEALS PO Last administered on 09:02; Start 03/31/17 at 08:00 Hydralazine HCl (Apresoline) 100 mg TID PO Last administered on 04/02/17 09:03 ; Start 03/31/17 at 09:00 Insulin Detemir (Levemir) 18 units QHS SQ Last administered on 04/01/17 21:13 ; Start 03/31/17 at 21:00 Labetalol HCl (Trandate) 300 mg QID PO Last administered on 04/02/17 09:05; Start 03/31/17 at 09:00 Promethazine HCl (Phenergan) 25 mg PRN Q6HRS PRN PO NAUSEA/VOMITING Last administered on 04/01/17 12:45; Start 03/30/17 at 23:45 Nicardipine HCl 50 mg/Sodium Chloride 270 ml @ 0 mls/hr CONT PRN IV SEE I/O RECORD Last administered on 03/31/17 03:14; Start 03/31/17 at 00:00; Stop 03/31 at 11:13; Status DC Insulin Aspart (NovoLOG) 0-9 UNITS TIDWMEALS SQ ; Start 03/31/17 at 08:00; Status Cancel Dextrose (Dextrose 50%-Water Syringe) 12.5 gm PRN Q15MIN PRN IV SEE COMMENTS; Start 03/31/17 at 00:00 Heparin Sodium/ Dextrose 500 ml @ 0 mls/hr CONT PRN IV SEE I/O RECORD; Start at 00:15; Stop 03/31/17 at 11:13; Status DC Heparin Sodium (Porcine) (Heparin Sodium) 3,400 unit PRN Q6HRS PRN IV FOR UFH LEVEL LESS THAN 0.2; Start 03/31/17 at 00:15; Stop 03/31/17 at 11:18; Status DC Heparin Sodium (Porcine) (Heparin Sodium) 1,700 unit PRN Q6HRS PRN IV FOR UFH LEVEL 0.2 - 0.29; Start 03/31/17 at 00:15; Stop 03/31/17 at 11:18; Status DC Warfarin Sodium (Coumadin Per Pharmacy) 1 each PRN DAILY PRN MC PER PROTOCOL Last administered on 03/31/17 09:03; Start 03/31/17 at 00:15; Stop 03/31/17 at 17:24; Status DC Hydralazine HCl (Apresoline) 20 mg 1X ONCE IVP Last administered on 03/31/17 00:45; Start 03/31/17 at 00:30; Stop 03/31/17 at 00:31; Status DC Insulin Aspart (NovoLOG) 0-9 UNITS TIDWMEALS SQ Last administered on 04/01/17 17:28; Start 03/31/17 at 00:30 Dextrose (Dextrose 50%-Water Syringe) 12.5 gm PRN Q15MIN PRN IV SEE COMMENTS; Start 03/31/17 at 00:15; Status UNV Info (Anti-Coagulation Monitoring By Pharmacy) 1 each PRN DAILY PRN MC SEE COMMENTS Last administered on 03/31/17 06:44; Start 03/31/17 at 02:30; Stop at 11:18; Status DC Darbepoetin Herbert (Aranesp) 60 mcg Sa SQ Last administered on 03/31/17 20:33; Start 03/31/17 at 21:00 Info (PHARMACY MONITORING -- do not chart) 1 each PRN DAILY PRN MC SEE COMMENTS ; Start 03/31/17 at 11:30; Stop 03/31/17 at 16:17; Status DC Sodium Chloride 1,000 ml @ 1,000 mls/hr Q1H PRN IV hypotension; Start 03/31/17 at 16:06; Stop 03/31/17 at 22:05; Status DC Sodium Chloride 1,000 ml @ 400 mls/hr Q2H30M PRN IV PATENCY; Start 03/31/17 at 16:06; Stop 04/01/17 at 04:05; Status DC Info (PHARMACY MONITORING -- do not chart) 1 each PRN DAILY PRN MC SEE COMMENTS ; Start 03/31/17 at 16:15 Active Scripts Active Promethazine Hcl 25 Mg Tablet 25 Mg PO Q6H PRN Reported Reglan (Metoclopramide Hcl) 10 Mg Tablet 10 Tab PO PRN TID Zofran Odt (Ondansetron) 4 Mg Tab.rapdis 4 Mg PO PRN Q6HRS Labetalol Hcl 300 Mg Tablet 1 Tab PO QID Novolog Flexpen (Insulin Aspart) 100 Unit/1 Ml Insuln.pen 15 Units SQ TIDWMEALS Levemir (Insulin Detemir) 100 Unit/1 Ml Vial 18 Unit SQ QHS Colace (Docusate Sodium) 100 Mg Capsule 200 Mg PO BID Renvela (Sevelamer Carbonate) 2.4 Gm Powd.pack 2.4 Gm PO TIDWMEALS Plavix (Clopidogrel Bisulfate) 75 Mg Tablet 75 Mg PO DAILY Hydralazine Hcl 100 Mg Tablet 100 Mg PO TID Amlodipine Besylate 10 Mg Tablet 10 Mg PO DAILY Nephro-Jill Tablet (Folic Acid/Vitamin B Comp W-C) 0.8 Mg Tablet 0.8 Mg PO DAILY Aspirin 81 Mg Tab.chew 81 Mg PO DAILY Miralax (Polyethylene Glycol 3350) 17 Gm Powd.pack 17 Gm PO DAILY Lisinopril 40 Mg Tablet 40 Mg PO BID Clonidine Hcl 0.3 Mg Tablet 0.3 Mg PO QID Vitals/I & O Vital Sign - Last 24 Hours 04/01/17 04/01/17 04/01/17 04/01/17 12:46 12:47 14:54 15:02 Temp 97.9 97.9 Pulse 73 72 67 67 Resp 18 B/P (MAP) 171/47 171/47 153/48 (83) 153/48 Pulse Ox 97 O2 Delivery Room Air 04/01/17 04/01/17 04/01/17 04/01/17 17:24 17:25 19:25 20:20 Temp 98.0 98.0 Pulse 67 67 74 Resp 18 B/P (MAP) 153/48 153/48 151/60 (90) Pulse Ox 96 O2 Delivery Nasal Cannula Nasal Cannula O2 Flow Rate 2.0 2.0 04/01/17 04/01/17 04/01/17 04/01/17 21:00 21:00 21:02 21:02 Pulse 74 74 74 74 B/P (MAP) 151/60 151/60 151/60 151/60 04/01/17 04/02/17 04/02/17 04/02/17 23:10 03:00 07:20 08:33 Temp 97.9 98.7 98.1 97.9 98.7 98.1 Pulse 76 77 75 Resp 20 24 22 B/P (MAP) 134/50 (78) 139/38 (71) 149/52 (84) Pulse Ox 98 95 94 O2 Delivery Nasal Cannula Nasal Cannula Nasal Cannula Nasal Cannula O2 Flow Rate 2.0 2.0 2.0 2.0 04/02/17 04/02/17 04/02/17 04/02/17 09:03 09:03 09:03 09:04 Pulse 75 75 75 75 B/P (MAP) 149/52 149/52 149/52 149/52 04/02/17 04/02/17 09:05 11:20 Temp 98.1 98.1 Pulse 75 69 Resp 20 B/P (MAP) 149/52 166/47 (86) Pulse Ox 97 O2 Delivery Nasal Cannula O2 Flow Rate 2.0 Intake and Output 04/01/17 04/01/17 04/02/17 15:00 23:00 07:00 Intake Total 80 ml 80 ml 360 ml Balance 80 ml 80 ml 360 ml JULIANNA CHRIS MD Apr 02, 2017 11:49
--- NOTE | 2017-04-02 13:14 | PDOC ---
CARDIO Progress Notes Date and Time Date of Service 04/02/2017 Time of Evaluation 1000 Subjective Subjective: No Chest Pain, No shortness of breath, No Palpitations, No Dizziness, Other (feels better today, wants to go home) Vitals Vitals Vital Signs Date Time Temp Pulse Resp B/P (MAP) Pulse Ox O2 Delivery O2 Flow Rate FiO2 04/02/17 11:20 98.1 69 20 166/47 (86) 97 Nasal Cannula 2.0 98.1 Weight Weight [ ] Input and Output Intake and Output Intake and Output 04/02/17 07:00 Intake Total 520 ml Balance 520 ml Intake Oral 520 ml # Voids 3 # Bowel Movements 1 Laboratory Labs Laboratory Tests Test 04/01/17 16:38 04/01/17 20:49 04/02/17 03:25 04/02/17 07:49 Glucose (Fingerstick) 154 mg/dL (70-99) 151 mg/dL (70-99) 138 mg/dL (70-99) White Blood Count 7.4 x10^3/uL (4.0-11.0) Red Blood Count 3.42 x10^6/uL (3.50-5.40) Hemoglobin 9.9 g/dL (12.0-15.5) Hematocrit 31.0 % (36.0-47.0) Mean Corpuscular Volume 91 fL (79-100) Mean Corpuscular Hemoglobin 29 pg (25-35) Mean Corpuscular Hemoglobin Concent 32 g/dL (31-37) Red Cell Distribution Width 18.9 % (11.5-14.5) Platelet Count 188 x10^3/uL (140-400) Neutrophils (%) (Auto) 67 % (31-73) Lymphocytes (%) (Auto) 16 % (24-48) Monocytes (%) (Auto) 14 % (0-9) Eosinophils (%) (Auto) 3 % (0-3) Basophils (%) (Auto) 0 % (0-3) Neutrophils # (Auto) 4.9 x10^3uL (1.8-7.7) Lymphocytes # (Auto) 1.2 x10^3/uL (1.0-4.8) Monocytes # (Auto) 1.0 x10^3/uL (0.0-1.1) Eosinophils # (Auto) 0.2 x10^3/uL (0.0-0.7) Basophils # (Auto) 0.0 x10^3/uL (0.0-0.2) Prothrombin Time 13.3 SEC (11.7-14.0) Prothromb Time International Ratio 1.1 (0.8-1.1) Sodium Level 140 mmol/L (136-145) Potassium Level 4.2 mmol/L (3.5-5.1) Chloride Level 104 mmol/L (98-107) Carbon Dioxide Level 30 mmol/L (21-32) Anion Gap 6 (6-14) Blood Urea Nitrogen 32 mg/dL (7-20) Creatinine 6.5 mg/dL (0.6-1.0) Estimated GFR (Cockcroft-Gault) 7.9 Glucose Level 190 mg/dL (70-99) Calcium Level 7.8 mg/dL (8.5-10.1) Test 04/02/17 11:38 Glucose (Fingerstick) 119 mg/dL (70-99) Review of Systems Constitutional: yes: alert, oriented Ears/Nose/Throat: Yes: no symptom reported Eyes: Yes: no symptom reported Pulmonary: Yes dyspnea Gastrointestional: Yes: no symptom reported Genitourinary: Yes: no symptom reported Skin: Yes no symptom reported Psychiatric/Neurological: Yes: no symptom reported Physical Exam HEENT: Neck Supple W Full Motion Chest: Symmetric LUNGS: Clear to Auscultation Heart: S1S2, RRR (SR) Abdomen: Soft N/T Extremities: No Calf Tenderness, Other (1+ bilateral LE pitting edema) Neurology: alert, oriented, follow commands Assessment Assessment 1. Acute on chronic diastolic CHF: likely mainly induced by uncontrolled HTN 2. Chest tightness: No further episode, likely bronchospasm. TTE with normal wall motion and EF. 3. HTN: improved 4. DM2: 2-3 mo ago A1C per pt 5.5 5. ESRD: HD TTHS 6. Morbid obesity: suspecting RONAK 7. 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 Add Imdur. ?Lisinopril 40 bid?, defer to PCP/renal 2. Multiple antiHTN 3. Lifestyle modification with smoking cessation 4. Consider RONAK workup 5. Continue secondary prevention. No statin at this time with HDl at 62 and LDL AT 50s 6. F/U in office as needed. DES SAEED FORMULA WEIGHER Apr 02, 2017 13:14
--- NOTE | 2017-04-02 13:48 | RAD ---
Examination: 2 views of the chest History: History of shortness of breath for 2 months Comparison: 03/30/2017 Findings: Moderate cardiomegaly is unchanged. Mild prominent appearing bilateral interstitial lung markings likely mild congestive changes. Trace left pleural effusion is identified. Mild degenerative changes thoracic spine. Impression: Mild prominent appearing bilateral interstitial lung markings likely mild congestive changes.
[2017-04-02 15:15] VITALS: BP 155/41
[2017-04-02 19:35] VITALS: BP 161/44
[2017-04-02] MEDS: INSULIN DETEMIR 300 UNITS/3 ML INSULN.PEN. SQ SCH (21:15)
[2017-04-02 23:20] VITALS: BP 138/40
[2017-04-03 03:33] VITALS: BP 150/37
[2017-04-03 05:10] LABS: BASO % 0 % (0-3); EOS % 3 % (0-3); HEMATOCRIT 30.5 % (36.0-47.0); HEMOGLOBIN 9.8 g/dL (12.0-15.5); LYMPH # 1.1 x10^3/uL (1.0-4.8); LYMPH % 15 % (24-48); MEAN CORPUSCULAR HEMOGLOBIN 29 pg (25-35); MEAN CORPUSCULAR HGB CONC 32 g/dL (31-37); MEAN CORPUSCULAR VOLUME 91 fL (79-100); MONO % 14 % (0-9); NEUT % 68 % (31-73); PLATELET COUNT 187 x10^3/uL (140-400); RED BLOOD COUNT 3.36 x10^6/uL (3.50-5.40); RED CELL DISTRIBUTION WIDTH 18.7 % (11.5-14.5); WHITE BLOOD COUNT 7.4 x10^3/uL (4.0-11.0)
[2017-04-03 05:23] LABS: INR 1.1 (0.8-1.1); PROTHROMBIN TIME PATIENT 13.1 SEC (11.7-14.0)
[2017-04-03 05:24] LABS: CALCIUM 8.1 mg/dL (8.5-10.1); CREATININE 8.1 mg/dL (0.6-1.0); GFR 6.1; POTASSIUM 4.7 mmol/L (3.5-5.1)
[2017-04-03 07:00] VITALS: BP 160/42
[2017-04-03] MEDS: INSULIN ASPART 300 UNITS/3 ML INSULN.PEN SQ SCH ×6 (08:00→17:00)
[2017-04-03] MEDS: SEVELAMER CARBONATE 2.4 GM PACKET. PO SCH ×3 (08:32→17:01)
[2017-04-03] MEDS: DOCUSATE SODIUM 100 MG CAPSULE. PO SCH ×2 (08:33→21:27)
[2017-04-03] MEDS: CLOPIDOGREL BISULFATE 75 MG TABLET PO SCH (08:33)
[2017-04-03] MEDS: LABETALOL HCL 200 MG TABLET PO SCH ×4 (08:35→21:26)
[2017-04-03] MEDS: ASPIRIN CHEWABLE 81 MG TABLET. PO SCH (08:36)
[2017-04-03] MEDS: cloNIDine HCL 0.3 MG TABLET PO SCH ×4 (08:36→21:27)
[2017-04-03 11:00] VITALS: BP 165/48
[2017-04-03] MEDS: amLODIPine BESYLATE 10 MG TABLET PO SCH (12:29)
[2017-04-03] MEDS: LISINOPRIL 40 MG TABLET. PO SCH ×2 (12:29→21:26)
[2017-04-03] MEDS: ISOSORBIDE MONONITRATE ER 30 MG TAB.ER.24H PO SCH (13:36)
[2017-04-03 15:00] VITALS: BP 153/44
--- NOTE | 2017-04-03 17:51 | PDOC ---
Dialysis Progress Note Dialysis Note Dialysis Note Seen on Hemodialysis, tolerating treatment Well Vitals on Hemodialysis: 134/48 71 afeb General Appearance: Awake: Alert Oriented x 2 Neck: No JVD or JVP Chest: CTA Bakari Heart: S1 S2 Abdomen - Soft NTND Extremities - No Edema ESRD: Dialysis as below F 180 NR 3.5 Hrs 3 K 2.5 Ca 140 Na 35 HC03 Qb 350 + Qd 500+ Heparin 0 Units Uf 1.5-2.0 Kgs or to dry weight as tolerated May give 25-50 gms of 25% Albumin if needed to maintain Hemodynamic stability Treatment plan reviewed and discussed with metal expediter Vitals Vital Signs Vital Signs Date Time Temp Pulse Resp B/P (MAP) Pulse Ox O2 Delivery O2 Flow Rate FiO2 04/03/17 17:00 71 153/44 04/03/17 15:00 97.8 18 96 Room Air 97.8 04/02/17 11:20 2.0 Labs Last Labs Laboratory Tests Test 04/01/17 20:49 04/02/17 03:25 04/02/17 07:49 04/02/17 11:38 Glucose (Fingerstick) 151 mg/dL (70-99) 138 mg/dL (70-99) 119 mg/dL (70-99) White Blood Count 7.4 x10^3/uL (4.0-11.0) Red Blood Count 3.42 x10^6/uL (3.50-5.40) Hemoglobin 9.9 g/dL (12.0-15.5) Hematocrit 31.0 % (36.0-47.0) Mean Corpuscular Volume 91 fL (79-100) Mean Corpuscular Hemoglobin 29 pg (25-35) Mean Corpuscular Hemoglobin Concent 32 g/dL (31-37) Red Cell Distribution Width 18.9 % (11.5-14.5) Platelet Count 188 x10^3/uL (140-400) Neutrophils (%) (Auto) 67 % (31-73) Lymphocytes (%) (Auto) 16 % (24-48) Monocytes (%) (Auto) 14 % (0-9) Eosinophils (%) (Auto) 3 % (0-3) Basophils (%) (Auto) 0 % (0-3) Neutrophils # (Auto) 4.9 x10^3uL (1.8-7.7) Lymphocytes # (Auto) 1.2 x10^3/uL (1.0-4.8) Monocytes # (Auto) 1.0 x10^3/uL (0.0-1.1) Eosinophils # (Auto) 0.2 x10^3/uL (0.0-0.7) Basophils # (Auto) 0.0 x10^3/uL (0.0-0.2) Prothrombin Time 13.3 SEC (11.7-14.0) Prothromb Time International Ratio 1.1 (0.8-1.1) Sodium Level 140 mmol/L (136-145) Potassium Level 4.2 mmol/L (3.5-5.1) Chloride Level 104 mmol/L (98-107) Carbon Dioxide Level 30 mmol/L (21-32) Anion Gap 6 (6-14) Blood Urea Nitrogen 32 mg/dL (7-20) Creatinine 6.5 mg/dL (0.6-1.0) Estimated GFR (Cockcroft-Gault) 7.9 Glucose Level 190 mg/dL (70-99) Calcium Level 7.8 mg/dL (8.5-10.1) Test 04/02/17 15:09 04/02/17 15:29 04/02/17 17:35 04/02/17 20:56 Glucose (Fingerstick) 33 mg/dL (70-99) 62 mg/dL (70-99) 84 mg/dL (70-99) 210 mg/dL (70-99) Test 04/03/17 04:20 04/03/17 07:41 04/03/17 11:47 04/03/17 16:33 White Blood Count 7.4 x10^3/uL (4.0-11.0) Red Blood Count 3.36 x10^6/uL (3.50-5.40) Hemoglobin 9.8 g/dL (12.0-15.5) Hematocrit 30.5 % (36.0-47.0) Mean Corpuscular Volume 91 fL (79-100) Mean Corpuscular Hemoglobin 29 pg (25-35) Mean Corpuscular Hemoglobin Concent 32 g/dL (31-37) Red Cell Distribution Width 18.7 % (11.5-14.5) Platelet Count 187 x10^3/uL (140-400) Neutrophils (%) (Auto) 68 % (31-73) Lymphocytes (%) (Auto) 15 % (24-48) Monocytes (%) (Auto) 14 % (0-9) Eosinophils (%) (Auto) 3 % (0-3) Basophils (%) (Auto) 0 % (0-3) Neutrophils # (Auto) 5.1 x10^3uL (1.8-7.7) Lymphocytes # (Auto) 1.1 x10^3/uL (1.0-4.8) Monocytes # (Auto) 1.0 x10^3/uL (0.0-1.1) Eosinophils # (Auto) 0.2 x10^3/uL (0.0-0.7) Basophils # (Auto) 0.0 x10^3/uL (0.0-0.2) Prothrombin Time 13.1 SEC (11.7-14.0) Prothromb Time International Ratio 1.1 (0.8-1.1) Sodium Level 139 mmol/L (136-145) Potassium Level 4.7 mmol/L (3.5-5.1) Chloride Level 103 mmol/L (98-107) Carbon Dioxide Level 29 mmol/L (21-32) Anion Gap 7 (6-14) Blood Urea Nitrogen 43 mg/dL (7-20) Creatinine 8.1 mg/dL (0.6-1.0) Estimated GFR (Cockcroft-Gault) 6.1 Glucose Level 254 mg/dL (70-99) Calcium Level 8.1 mg/dL (8.5-10.1) Glucose (Fingerstick) 157 mg/dL (70-99) 129 mg/dL (70-99) 71 mg/dL (70-99) Laboratory Tests Test 04/02/17 20:56 04/03/17 04:20 04/03/17 07:41 04/03/17 11:47 Glucose (Fingerstick) 210 mg/dL (70-99) 157 mg/dL (70-99) 129 mg/dL (70-99) White Blood Count 7.4 x10^3/uL (4.0-11.0) Red Blood Count 3.36 x10^6/uL (3.50-5.40) Hemoglobin 9.8 g/dL (12.0-15.5) Hematocrit 30.5 % (36.0-47.0) Mean Corpuscular Volume 91 fL (79-100) Mean Corpuscular Hemoglobin 29 pg (25-35) Mean Corpuscular Hemoglobin Concent 32 g/dL (31-37) Red Cell Distribution Width 18.7 % (11.5-14.5) Platelet Count 187 x10^3/uL (140-400) Neutrophils (%) (Auto) 68 % (31-73) Lymphocytes (%) (Auto) 15 % (24-48) Monocytes (%) (Auto) 14 % (0-9) Eosinophils (%) (Auto) 3 % (0-3) Basophils (%) (Auto) 0 % (0-3) Neutrophils # (Auto) 5.1 x10^3uL (1.8-7.7) Lymphocytes # (Auto) 1.1 x10^3/uL (1.0-4.8) Monocytes # (Auto) 1.0 x10^3/uL (0.0-1.1) Eosinophils # (Auto) 0.2 x10^3/uL (0.0-0.7) Basophils # (Auto) 0.0 x10^3/uL (0.0-0.2) Prothrombin Time 13.1 SEC (11.7-14.0) Prothromb Time International Ratio 1.1 (0.8-1.1) Sodium Level 139 mmol/L (136-145) Potassium Level 4.7 mmol/L (3.5-5.1) Chloride Level 103 mmol/L (98-107) Carbon Dioxide Level 29 mmol/L (21-32) Anion Gap 7 (6-14) Blood Urea Nitrogen 43 mg/dL (7-20) Creatinine 8.1 mg/dL (0.6-1.0) Estimated GFR (Cockcroft-Gault) 6.1 Glucose Level 254 mg/dL (70-99) Calcium Level 8.1 mg/dL (8.5-10.1) Test 04/03/17 16:33 Glucose (Fingerstick) 71 mg/dL (70-99) CHEL MORFIN MD Apr 03, 2017 17:51
[2017-04-03] MEDS ORDERED: DIALYSIS PATIENT. MC PRN ×2 (18:45)
[2017-04-03 21:00] VITALS: BP 198/89
[2017-04-03] MEDS: INSULIN DETEMIR 300 UNITS/3 ML INSULN.PEN. SQ SCH (21:34)
[2017-04-03 22:55] VITALS: BP 161/66
[2017-04-04 03:00] VITALS: BP 163/43
[2017-04-04 07:00] VITALS: BP 184/61
[2017-04-04] MEDS: INSULIN ASPART 300 UNITS/3 ML INSULN.PEN SQ SCH ×2 (08:00→09:06)
[2017-04-04] MEDS: SEVELAMER CARBONATE 2.4 GM PACKET. PO SCH (08:46)
[2017-04-04] MEDS: LABETALOL HCL 200 MG TABLET PO SCH (08:48)
[2017-04-04] MEDS: cloNIDine HCL 0.3 MG TABLET PO SCH (08:48)
[2017-04-04] MEDS: ASPIRIN CHEWABLE 81 MG TABLET. PO SCH (08:49)
[2017-04-04] MEDS: ISOSORBIDE MONONITRATE ER 30 MG TAB.ER.24H PO SCH (08:49)
[2017-04-04] MEDS: LISINOPRIL 40 MG TABLET. PO SCH (08:49)
[2017-04-04] MEDS: amLODIPine BESYLATE 10 MG TABLET PO SCH (08:49)
[2017-04-04] MEDS: CLOPIDOGREL BISULFATE 75 MG TABLET PO SCH (08:49)
[2017-04-04] MEDS: DOCUSATE SODIUM 100 MG CAPSULE. PO SCH (08:57)
--- NOTE | 2017-04-04 09:47 | PDOC ---
PROGRESS NOTES Chief Complaint Chief Complaint cc: chest pain , late entry, pt seen on 04/03/17. A/P Chest pain, possible due to uncontrolled HTN : Echo no LV mall motion defects. VQ negative, troponin negative. Accelerated HTN POA : prn IV hydralazine, d/w RN, home medications resumed. IV lasix PRN ESRD ON HD: HD today. DM 2 with hyperglycemia: Levemir with SSI, labs reviewed, History of Present Illness History of Present Illness no complaints. no fever no chills no chest pain Vitals Vitals Vital Signs Date Time Temp Pulse Resp B/P (MAP) Pulse Ox O2 Delivery O2 Flow Rate FiO2 04/04/17 08:49 72 184/61 04/04/17 07:00 98.4 20 97 Room Air 98.4 Physical Exam General: Alert, Oriented X3, Cooperative, No acute distress Heart: Regular rate, Normal S1 Lungs: Clear, Other Abdomen: Normal bowel sounds, Soft, No tenderness Extremities: No clubbing Labs LABS Laboratory Tests Test 04/03/17 11:47 04/03/17 16:33 04/03/17 21:31 04/04/17 07:18 Glucose (Fingerstick) 129 mg/dL (70-99) 71 mg/dL (70-99) 143 mg/dL (70-99) 138 mg/dL (70-99) Comment Review of Relevant I have reviewed the following items morgan (where applicable) has been applied. Labs Laboratory Tests Test 04/02/17 11:38 04/02/17 15:09 04/02/17 15:29 04/02/17 17:35 Glucose (Fingerstick) 119 mg/dL (70-99) 33 mg/dL (70-99) 62 mg/dL (70-99) 84 mg/dL (70-99) Test 04/02/17 20:56 04/03/17 04:20 04/03/17 07:41 04/03/17 11:47 Glucose (Fingerstick) 210 mg/dL (70-99) 157 mg/dL (70-99) 129 mg/dL (70-99) White Blood Count 7.4 x10^3/uL (4.0-11.0) Red Blood Count 3.36 x10^6/uL (3.50-5.40) Hemoglobin 9.8 g/dL (12.0-15.5) Hematocrit 30.5 % (36.0-47.0) Mean Corpuscular Volume 91 fL (79-100) Mean Corpuscular Hemoglobin 29 pg (25-35) Mean Corpuscular Hemoglobin Concent 32 g/dL (31-37) Red Cell Distribution Width 18.7 % (11.5-14.5) Platelet Count 187 x10^3/uL (140-400) Neutrophils (%) (Auto) 68 % (31-73) Lymphocytes (%) (Auto) 15 % (24-48) Monocytes (%) (Auto) 14 % (0-9) Eosinophils (%) (Auto) 3 % (0-3) Basophils (%) (Auto) 0 % (0-3) Neutrophils # (Auto) 5.1 x10^3uL (1.8-7.7) Lymphocytes # (Auto) 1.1 x10^3/uL (1.0-4.8) Monocytes # (Auto) 1.0 x10^3/uL (0.0-1.1) Eosinophils # (Auto) 0.2 x10^3/uL (0.0-0.7) Basophils # (Auto) 0.0 x10^3/uL (0.0-0.2) Prothrombin Time 13.1 SEC (11.7-14.0) Prothromb Time International Ratio 1.1 (0.8-1.1) Sodium Level 139 mmol/L (136-145) Potassium Level 4.7 mmol/L (3.5-5.1) Chloride Level 103 mmol/L (98-107) Carbon Dioxide Level 29 mmol/L (21-32) Anion Gap 7 (6-14) Blood Urea Nitrogen 43 mg/dL (7-20) Creatinine 8.1 mg/dL (0.6-1.0) Estimated GFR (Cockcroft-Gault) 6.1 Glucose Level 254 mg/dL (70-99) Calcium Level 8.1 mg/dL (8.5-10.1) Test 04/03/17 16:33 04/03/17 21:31 04/04/17 07:18 Glucose (Fingerstick) 71 mg/dL (70-99) 143 mg/dL (70-99) 138 mg/dL (70-99) Laboratory Tests Test 04/03/17 11:47 04/03/17 16:33 04/03/17 21:31 04/04/17 07:18 Glucose (Fingerstick) 129 mg/dL (70-99) 71 mg/dL (70-99) 143 mg/dL (70-99) 138 mg/dL (70-99) Medications Current Medications Albuterol/ Ipratropium (Duoneb) 3 ml 1X ONCE NEB Last administered on 19:14; Start 03/30/17 at 19:00; Stop 03/30/17 at 19:03; Status DC Ondansetron HCl (Zofran) 4 mg PRN Q8HRS PRN IV NAUSEA/VOMITING; Start 03/30/17 at 22:00; Stop 03/31/17 at 14:12; Status DC Albuterol/ Ipratropium (Duoneb) 3 ml RTQID NEB Last administered on 04/01/17 07:47; Start 03/31/17 at 08:00; Stop 04/01/17 at 07:59; Status DC Acetaminophen (Tylenol) 325 mg PRN Q6HRS PRN PO MILD PAIN / TEMP; Start at 00:00 Acetaminophen/ Hydrocodone Bitart (Lortab 5/325) 1 tab PRN Q6HRS PRN PO MODERATE TO SEVERE PAIN; Start 03/31/17 at 00:00 Hydralazine HCl (Apresoline) 10 mg PRN Q4HRS PRN IVP ELEVATED BP, SEE COMMENTS Last administered on 04/01/17 04:08; Start 03/31/17 at 00:00 Ondansetron HCl (Zofran) 4 mg PRN Q8HRS PRN IV NAUSEA/VOMITING; Start 03/31/17 at 00:00 Albuterol Sulfate (Ventolin Neb Soln) 2.5 mg PRN Q4HRS PRN NEB SHORTNESS OF BREATH Last administered on 03/31/17 04:17; Start 03/31/17 at 00:00 Amlodipine Besylate (Norvasc) 10 mg DAILY PO Last administered on 04/04/17 08: 49; Start 03/31/17 at 09:00 Aspirin (Children'S Aspirin) 81 mg DAILY PO Last administered on 04/04/17 08: 49; Start 03/31/17 at 09:00 Clonidine HCl (Catapres) 0.3 mg QID PO Last administered on 04/04/17 08:48; Start 03/31/17 at 09:00 Clopidogrel Bisulfate (Plavix) 75 mg DAILY PO Last administered on 04/04/17 08 :49; Start 03/31/17 at 09:00 Docusate Sodium (Colace) 200 mg BID PO Last administered on 04/04/17 08:57; Start 03/31/17 at 09:00 Insulin Aspart (NovoLOG) 15 units TIDWMEALS SQ Last administered on 04/04/17 09:06; Start 03/31/17 at 08:00 Lisinopril (Prinivil) 40 mg BID PO Last administered on 04/04/17 08:49; Start 03/31/17 at 09:00 Metoclopramide HCl (Reglan) 5 mg PRN TID PRN PO NAUSEA; Start 03/31/17 at 00:15 Ondansetron HCl (Zofran Odt) 4 mg PRN Q6HRS PRN PO NAUSEA Last administered on 04/01/17 11:55; Start 03/31/17 at 00:00 Sevelamer Carbonate (Renvela) 2.4 gm TIDWMEALS PO Last administered on 08:46; Start 03/31/17 at 08:00 Hydralazine HCl (Apresoline) 100 mg TID PO Last administered on 04/04/17 08:48 ; Start 03/31/17 at 09:00 Insulin Detemir (Levemir) 18 units QHS SQ Last administered on 04/03/17 21:34 ; Start 03/31/17 at 21:00 Labetalol HCl (Trandate) 300 mg QID PO Last administered on 04/04/17 08:48; Start 03/31/17 at 09:00 Promethazine HCl (Phenergan) 25 mg PRN Q6HRS PRN PO NAUSEA/VOMITING Last administered on 04/01/17 12:45; Start 03/30/17 at 23:45 Nicardipine HCl 50 mg/Sodium Chloride 270 ml @ 0 mls/hr CONT PRN IV SEE I/O RECORD Last administered on 03/31/17 03:14; Start 03/31/17 at 00:00; Stop 03/31 at 11:13; Status DC Insulin Aspart (NovoLOG) 0-9 UNITS TIDWMEALS SQ ; Start 03/31/17 at 08:00; Status Cancel Dextrose (Dextrose 50%-Water Syringe) 12.5 gm PRN Q15MIN PRN IV SEE COMMENTS Last administered on 04/02/17 15:31; Start 03/31/17 at 00:00 Heparin Sodium/ Dextrose 500 ml @ 0 mls/hr CONT PRN IV SEE I/O RECORD; Start at 00:15; Stop 03/31/17 at 11:13; Status DC Heparin Sodium (Porcine) (Heparin Sodium) 3,400 unit PRN Q6HRS PRN IV FOR UFH LEVEL LESS THAN 0.2; Start 03/31/17 at 00:15; Stop 03/31/17 at 11:18; Status DC Heparin Sodium (Porcine) (Heparin Sodium) 1,700 unit PRN Q6HRS PRN IV FOR UFH LEVEL 0.2 - 0.29; Start 03/31/17 at 00:15; Stop 03/31/17 at 11:18; Status DC Warfarin Sodium (Coumadin Per Pharmacy) 1 each PRN DAILY PRN MC PER PROTOCOL Last administered on 03/31/17 09:03; Start 03/31/17 at 00:15; Stop 03/31/17 at 17:24; Status DC Hydralazine HCl (Apresoline) 20 mg 1X ONCE IVP Last administered on 03/31/17 00:45; Start 03/31/17 at 00:30; Stop 03/31/17 at 00:31; Status DC Insulin Aspart (NovoLOG) 0-9 UNITS TIDWMEALS SQ Last administered on 04/01/17 17:28; Start 03/31/17 at 00:30 Dextrose (Dextrose 50%-Water Syringe) 12.5 gm PRN Q15MIN PRN IV SEE COMMENTS; Start 03/31/17 at 00:15; Status UNV Info (Anti-Coagulation Monitoring By Pharmacy) 1 each PRN DAILY PRN MC SEE COMMENTS Last administered on 03/31/17 06:44; Start 03/31/17 at 02:30; Stop at 11:18; Status DC Darbepoetin Herbert (Aranesp) 60 mcg Sa SQ Last administered on 03/31/17t 20:33; Start 03/31/17 at 21:00 Info (PHARMACY MONITORING -- do not chart) 1 each PRN DAILY PRN MC SEE COMMENTS ; Start 03/31/17 at 11:30; Stop 03/31/17 at 16:17; Status DC Sodium Chloride 1,000 ml @ 1,000 mls/hr Q1H PRN IV hypotension; Start 03/31/17 at 16:06; Stop 03/31/17 at 22:05; Status DC Sodium Chloride 1,000 ml @ 400 mls/hr Q2H30M PRN IV PATENCY; Start 03/31/17 at 16:06; Stop 04/01/17 at 04:05; Status DC Info (PHARMACY MONITORING -- do not chart) 1 each PRN DAILY PRN MC SEE COMMENTS ; Start 03/31/17 at 16:15 Isosorbide Mononitrate (Imdur) 30 mg DAILY PO Last administered on 04/04/17t 08 :49; Start 04/03/17 at 13:30 Info (PHARMACY MONITORING -- do not chart) 1 each PRN DAILY PRN MC SEE COMMENTS ; Start 04/03/17 at 18:45 Info (PHARMACY MONITORING -- do not chart) 1 each PRN DAILY PRN MC SEE COMMENTS ; Start 04/03/17 at 18:45; Status UNV Active Scripts Active Promethazine Hcl 25 Mg Tablet 25 Mg PO Q6H PRN Reported Reglan (Metoclopramide Hcl) 10 Mg Tablet 10 Tab PO PRN TID Zofran Odt (Ondansetron) 4 Mg Tab.rapdis 4 Mg PO PRN Q6HRS Labetalol Hcl 300 Mg Tablet 1 Tab PO QID Novolog Flexpen (Insulin Aspart) 100 Unit/1 Ml Insuln.pen 15 Units SQ TIDWMEALS Levemir (Insulin Detemir) 100 Unit/1 Ml Vial 18 Unit SQ QHS Colace (Docusate Sodium) 100 Mg Capsule 200 Mg PO BID Renvela (Sevelamer Carbonate) 2.4 Gm Powd.pack 2.4 Gm PO TIDWMEALS Plavix (Clopidogrel Bisulfate) 75 Mg Tablet 75 Mg PO DAILY Hydralazine Hcl 100 Mg Tablet 100 Mg PO TID Amlodipine Besylate 10 Mg Tablet 10 Mg PO DAILY Nephro-Jill Tablet (Folic Acid/Vitamin B Comp W-C) 0.8 Mg Tablet 0.8 Mg PO DAILY Aspirin 81 Mg Tab.chew 81 Mg PO DAILY Miralax (Polyethylene Glycol 3350) 17 Gm Powd.pack 17 Gm PO DAILY Lisinopril 40 Mg Tablet 40 Mg PO BID Clonidine Hcl 0.3 Mg Tablet 0.3 Mg PO QID Vitals/I & O Vital Sign - Last 24 Hours 04/03/17 04/03/17 04/03/17 04/03/17 11:00 12:29 12:29 13:35 Temp 98.7 98.7 Pulse 73 73 73 71 Resp 18 B/P (MAP) 165/48 (87) 165/48 165/48 169/73 Pulse Ox 95 O2 Delivery Room Air 04/03/17 04/03/17 04/03/17 04/03/17 13:36 13:37 14:42 15:00 Temp 97.8 97.8 Pulse 71 71 71 71 Resp 18 B/P (MAP) 169/73 169/73 161/67 153/44 (80) Pulse Ox 96 O2 Delivery Room Air 04/03/17 04/03/17 04/03/17 04/03/17 17:00 17:00 20:00 21:00 Temp 97.8 97.8 Pulse 71 71 92 Resp 22 B/P (MAP) 153/44 153/44 198/89 (125) Pulse Ox 96 O2 Delivery Room Air Room Air 04/03/17 04/03/17 04/03/17 04/03/17 21:26 21:26 21:27 21:27 Pulse 83 83 83 83 B/P (MAP) 198/82 198/82 198/82 198/82 04/03/17 04/04/17 04/04/17 04/04/17 22:55 03:00 07:00 08:48 Temp 98.0 98.7 98.4 98.0 98.7 98.4 Pulse 81 77 72 72 Resp 18 20 B/P (MAP) 161/66 (97) 163/43 (83) 184/61 (102) 184/61 Pulse Ox 95 100 97 O2 Delivery Room Air Room Air 04/04/17 04/04/17 04/04/17 04/04/17 08:48 08:48 08:49 08:49 Pulse 72 72 72 72 B/P (MAP) 184/61 184/61 184/61 184/61 04/04/17 08:49 Pulse 72 B/P (MAP) 184/61 Intake and Output 04/03/17 04/03/17 04/04/17 15:00 23:00 07:00 Intake Total 550 ml Output Total 0 ml Balance 550 ml 0 ml Nutrition Consultation Dietary Evaluation: Recommendations by RD: Increase Calorie Intake Comments: Continue nutrition care plan add the diabetic diet restriction d/c the novasource renal-pt refuses to drink add boost glucose control at dinner Expected Outcomes/Goals: meet 75% estimated nutrition needs Malnutrition Findings: Reduced [employer]arf[employer] Strength: N/A Malnutrition related to morbid: No Weight Status: Morbidly Obese JULIANNA CHRIS MD Apr 04, 2017 09:46
[2017-04-04 11:15] VITALS: BP 145/42
--- NOTE | 2017-04-04 11:57 | PDOC ---
SUBJECTIVE ROS ESRD Pt D/alvin before I could see her OBJECTIVE Vital Signs Vital Signs Date Time Temp Pulse Resp B/P (MAP) Pulse Ox O2 Delivery O2 Flow Rate FiO2 04/04/17 11:15 98.2 72 20 145/42 (76) 95 Room Air 98.2 I & 0 Intake and Output 04/04/17 07:00 Intake Total 550 ml Output Total 0 ml Balance 550 ml Intake Oral 550 ml Output Urine Total 0 ml # Voids 3 COMMENT/RELEVANT DATA Meds Current Medications Medications (Trade) Dose Ordered Sig/Anil Start Time Stop Time Status Last Admin Dose Admin Acetaminophen (Tylenol) 325 mg PRN Q6HRS PRN 03/31/17 00:00 Acetaminophen/ Hydrocodone Bitart (Lortab 5/325) 1 tab PRN Q6HRS PRN 03/31/17 00:00 Albuterol Sulfate (Ventolin Neb Soln) 2.5 mg PRN Q4HRS PRN 03/31/17 00:00 03/31/17 04:17 2.5 MG Albuterol/ Ipratropium (Duoneb) 3 ml RTQID 03/31/17 08:00 04/01/17 07:59 DC 04/01/17 07:47 3 ML Amlodipine Besylate (Norvasc) 10 mg DAILY 03/31/17 09:00 04/04/17 08:49 10 MG Aspirin (Children'S Aspirin) 81 mg DAILY 03/31/17 09:00 04/04/17 08:49 81 MG Clonidine HCl (Catapres) 0.3 mg QID 03/31/17 09:00 04/04/17 08:48 0.3 MG Clopidogrel Bisulfate (Plavix) 75 mg DAILY 03/31/17 09:00 04/04/17 08:49 75 MG Darbepoetin Herebrt (Aranesp) 60 mcg Sa 03/31/17 21:00 03/31/17 20:33 60 MCG Dextrose (Dextrose 50%-Water Syringe) 12.5 gm PRN Q15MIN PRN 03/31/17 00:15 UNV Docusate Sodium (Colace) 200 mg BID 03/31/17 09:00 04/04/17 08:57 200 MG Heparin Sodium (Porcine) (Heparin Sodium) 1,700 unit PRN Q6HRS PRN 03/31/17 00:15 03/31/17 11:18 DC Heparin Sodium/ Dextrose 500 ml @ 0 mls/hr CONT PRN 03/31/17 00:15 03/31/17 11:13 DC Hydralazine HCl (Apresoline) 20 mg 1X ONCE 03/31/17 00:30 03/31/17 00:31 DC 03/31/17 00:45 20 MG Info (Anti-Coagulation Monitoring By Pharmacy) 1 each PRN DAILY PRN 03/31/17 02:30 03/31/17 11:18 DC 03/31/17 06:44 1 EACH Info (PHARMACY MONITORING -- do not chart) 1 each PRN DAILY PRN 04/03/17 18:45 UNV Insulin Aspart (NovoLOG) 0-9 UNITS TIDWMEALS 03/31/17 00:30 04/01/17 17:28 4 UNITS Insulin Detemir (Levemir) 18 units QHS 03/31/17 21:00 04/03/17 21:34 15 UNITS Isosorbide Mononitrate (Imdur) 30 mg DAILY 04/03/17 13:30 04/04/17 08:49 30 MG Labetalol HCl (Trandate) 300 mg QID 03/31/17 09:00 04/04/17 08:48 300 MG Lisinopril (Prinivil) 40 mg BID 03/31/17 09:00 04/04/17 08:49 40 MG Magnesium Sulfate/ Dextrose 50 ml @ 25 mls/hr PRN DAILY PRN 04/04/17 12:00 UNV Metoclopramide HCl (Reglan) 5 mg PRN TID PRN 03/31/17 00:15 Nicardipine HCl 50 mg/Sodium Chloride 270 ml @ 0 mls/hr CONT PRN 03/31/17 00:00 03/31/17 11:13 DC 03/31/17 03:14 25 MLS/HR Ondansetron HCl (Zofran Odt) 4 mg PRN Q6HRS PRN 03/31/17 00:00 04/01/17 11:55 4 MG Ondansetron HCl (Zofran) 4 mg PRN Q8HRS PRN 03/31/17 00:00 Promethazine HCl (Phenergan) 25 mg PRN Q6HRS PRN 03/30/17 23:45 04/01/17 12:45 25 MG Sevelamer Carbonate (Renvela) 2.4 gm TIDWMEALS 03/31/17 08:00 04/04/17 08:46 2.4 GM Sodium Chloride 1,000 ml @ 400 mls/hr Q2H30M PRN 03/31/17 16:06 04/01/17 04:05 DC Warfarin Sodium (Coumadin Per Pharmacy) 1 each PRN DAILY PRN 03/31/17 00:15 03/31/17 17:24 DC 03/31/17 09:03 1 EACH Lab Laboratory Tests Test 04/03/17 16:33 04/03/17 21:31 04/04/17 07:18 04/04/17 11:12 Glucose (Fingerstick) 71 mg/dL (70-99) 143 mg/dL (70-99) 138 mg/dL (70-99) 145 mg/dL (70-99) CHEL MORFIN MD Apr 04, 2017 11:57
[2017-04-04] MEDS ORDERED: MAGNESIUM SULFATE 2GM 50 ML IV PRN (12:00)
== END 2017-04-04 12:02 | disposition home or self-care (01) | DRG 291 ==
LOC: ER 18:29 → 2 SOUTH 21:34
PROVIDERS: ADMIT Internal Medicine; ATTEND Internal Medicine
PROC: 5A1D00Z (ICD-10-PCS; principal; 2017-04-03)
DX: I13.2 Hypertensive heart and chronic kidney disease with heart failure and with stage 5 chronic kidney disease, or end stage renal disease (principal); I50.33 Acute on chronic diastolic (congestive) heart failure; N18.6 End stage renal disease; J44.1 Chronic obstructive pulmonary disease with (acute) exacerbation; Z68.42 Body mass index [BMI] 45.0-49.9, adult; E11.22 Type 2 diabetes mellitus with diabetic chronic kidney disease; E11.65 Type 2 diabetes mellitus with hyperglycemia; E66.01 Morbid (severe) obesity due to excess calories; E78.5 Hyperlipidemia, unspecified; F17.210 Nicotine dependence, cigarettes, uncomplicated; I25.10 Atherosclerotic heart disease of native coronary artery without angina pectoris; K21.9 Gastro-esophageal reflux disease without esophagitis; J98.01 Acute bronchospasm; D64.9 Anemia, unspecified; M19.90 Unspecified osteoarthritis, unspecified site; E21.3 Hyperparathyroidism, unspecified; J30.9 Allergic rhinitis, unspecified; K59.00 Constipation, unspecified; Z82.49 Family history of ischemic heart disease and other diseases of the circulatory system; Z83.3 Family history of diabetes mellitus; Z99.2 Dependence on renal dialysis; Z98.891 History of uterine scar from previous surgery; Z79.4 Long term (current) use of insulin; Z86.718 Personal history of other venous thrombosis and embolism; J44.9 Chronic obstructive pulmonary disease, unspecified
CPT/HCPCS: 36415; 71010; 71020; 78582; 80048; 80053; 80061; 82553; 82962; 83880; 84443; 84484; 85027; 85379; 85610; 93005; 93306; 93970; 94250; 94640; 94760; 96374; 99406; A9540; A9558; J0360; J0881; J1815; J7042; J7050; J7620; Q0162; Q0169; 99285-25; J7030

== ENCOUNTER 2017-09-26 08:57 | Inpatient (IN) | payer MEDICARE, OTHER ==
[~2017-09-26] VITALS: Ht 154.9 cm; Wt 108.4 kg
[2017-09-26] VITALS (16 sets, daily range): BP systolic 119–182; BP diastolic 43–79
[~2017-09-26 08:57] MED LIST changes: +ONDA4TAB10 PO
[2017-09-26] MEDS ORDERED: IPRATRPIUM/ALBUTEROL 0.5/2.5MG 3 ML NEBU. NEB ONE (09:15)
[2017-09-26] MEDS ORDERED: ALBUTEROL SULFATE 2.5 MG/3 ML NEBU. CONT NEB ONE (09:15)
[2017-09-26] MEDS ORDERED: FUROSEMIDE 40 MG/4 ML VIAL. IVP ONE (09:15)
[2017-09-26] MEDS ORDERED: methylPREDNISolone SOD SUCC PF 125 MG/2 ML VIAL. IV ONE (09:15)
--- NOTE | 2017-09-26 09:41 | PHYS DOC ---
Past Medical History Past Medical History: Diabetes-Type II, DVT, GERD, Hypertension, Renal Failure , Other Additional Past Medical Histor: HEMODIAYLSIS Past Surgical History: , Other Additional Past Surgical Histo: dialysis shunt right upper arm-removed, Dialysis shunt L upper arm, Vascath Smoking: Cigarettes, Less than 1pk/day Alcohol Use: None Drug Use: None Adult General Chief Complaint Chief Complaint: SHORTNESS OF BREATH HPI HPI She is a pleasant 57-year-old female with end-stage renal disease on dialysis Sunday who presents with shortness of breath it's gotten progressively over the course of last 24 hours. Patient was seen in dialyzed yesterday had a dry weight of 103 kg her normal dry weight is 105 kg but she hadn't take off an additional 2 kg of weight because she did take oral preparation fluids for a colonoscopy today. Patient arrived today to get her colonoscopy was noted to be very short of breath. Patient is a smoker with a prior history of DVT who presents with no chest pain just increasing shortness of breath on exertion exertion as well as tightness and wheezing. She denies any prior history of COPD or "" asthma requiring a metered-dose inhaler or intubation or recent steroids. She admits that the fluid load she had a take for her colonoscopy prep was very large. Patient admits to some peripheral leg swelling which is chronic in nature nothing new. Patient denies any fevers, chills, cough, runny nose, URI symptoms or recent sick contacts. She does still produce urine. Although she is on a kidney transplant list and she supposed to stop smoking she does been cheating over the last several weeks. She smokes a couple cigarettes a day. Patient denies any change in medications, she is a diabetic on insulin for her diabetes to include NovoLog and Levemir she states that her sugars been well-controlled. She denies any night sweats or significant weight gain. Differential diagnosis: Acute myocardial ischemia, heart failure, cardiac tamponade, bronchospasm, pulmonary embolism, pneumothorax, pulmonary infection i.e. bronchitis or pneumonia, upper airway obstruction, anaphylaxis, aspiration , psychogenic, pulmonary contusion, toxidrome, pneumomediastinum, noncardiogenic pulmonary edema or ARDS, COPD, tuberculosis, cystic fibrosis, asthma, high altitude pulmonary edema, valvular dysfunction, cardiac dysrhythmia , stroke, neuromuscular diseases like myasthenia gravis gravis, ALS, Guillain- Barahona syndrome, metabolic acidosis to include diabetic ketoacidosis, sepsis, and obstructive disorders like massive obesity EEG done on arrival temperature to time of 910 read by me 09/26/2017 demonstrates sinus rhythm with a heart rate of 77 there is a P wave there were QRS there is significant movement artifact noted within the EKG there is significant T-wave abnormality with enlarged P wave in lead 2 likely from left atrial enlargement, WA interval is 142 which is normal, QRS width is 472 which is normal, QTc is 445 which is normal. Patient has not severe T wave flattening in the lateral leads Review of Systems Review of Systems Constitutional: Denies fever or chills [] Eyes: Denies change in visual acuity, redness, or eye pain [] HENT: Denies nasal congestion or sore throat [] Respiratory: Denies cough but she has been suffering from significant increase in shortness of breath. Cardiovascular: No additional information not addressed in HPI [] GI: Denies abdominal pain, nausea, vomiting, bloody stools or diarrhea [] : Denies dysuria or hematuria [] Musculoskeletal: Denies back pain he does complain of chronic lower extremity pain and swelling which is not new Integument: Denies rash or skin lesions [] Neurologic: Denies headache, focal weakness or sensory changes patient feels generally weak but no specific focal deficits. [] Endocrine: Denies polyuria or polydipsia [] All other systems were reviewed and found to be within normal limits, except as documented in this note. Current Medications Current Medications Current Medications Medications (Trade) Dose Ordered Sig/Anil Start Time Stop Time Status Last Admin Dose Admin Albuterol Sulfate (Ventolin Neb Soln) 10 mg 1X ONCE 09/26/17 09:15 09/26/17 09:23 DC 09/26/17 09:39 10 MG Albuterol/ Ipratropium (Duoneb) 3 ml 1X ONCE 09/26/17 09:15 09/26/17 09:23 DC 09/26/17 09:39 3 ML Fentanyl Citrate (Fentanyl 2ml Vial) 50 mcg PRN Q1HR PRN 09/26/17 11:00 09/27/17 10:59 Furosemide (Lasix) 80 mg 1X ONCE 09/26/17 09:15 09/26/17 09:23 DC 09/26/17 10:12 80 MG Methylprednisolone Sodium Succinate (SOLU-Medrol 125MG VIAL) 125 mg 1X ONCE 09/26/17 09:15 09/26/17 09:23 DC 09/26/17 10:12 125 MG Nicardipine HCl 50 mg/Sodium Chloride 270 ml @ 0 mls/hr CONT PRN 09/26/17 09:45 09/26/17 10:26 25 MLS/HR Ondansetron HCl (Zofran) 4 mg PRN Q8HRS PRN 09/26/17 11:00 09/27/17 10:59 Allergies Allergies Allergies Coded Allergies Type Severity Reaction Last Updated Verified erythromycin base Adverse Reaction Intermediate vomiting 09/26/17 Yes Physical Exam Physical Exam Other vital signs recorded on the chart patient noted to be tachypnea, tachycardic, hypertensive and hypoxic. Constitutional: Well developed, well nourished, she is obese and she is in some respiratory distress. She has no obvious signs of diaphoresis or retractions but is wheezing audibly[] HENT: Normocephalic, atraumatic, bilateral external ears normal, oropharynx dry mucous membranes likely from oral breathing, no oral exudates, nose normal. [] Eyes: PERRLA, EOMI, conjunctiva normal, no discharge. [] Neck: Normal range of motion, no tenderness, supple, no stridor. [] Cardiovascular:Heart rate regular rhythm, no murmur [] Lungs & Thorax: She has decreased breath sounds bilaterally at bases with wheezes throughout. Patient has coarse rhonchi as well. She has no retractions or sensory muscle use. She is speaking in 5-6 word sentences Abdomen: Bowel sounds normal, soft, no tenderness, no masses, no pulsatile masses. [] Skin: Warm, dry, no erythema, no rash. [] Back: No tenderness, no CVA tenderness. [] Extremities: No tenderness, no cyanosis, demonstrates some pitting edema in the lower external is bilaterally. Left leg is larger than right which is chronic for patient no Homans sign. Neurologic: Alert and oriented X 3, normal motor function, normal sensory function, no focal deficits noted. [] Psychologic: Affect normal, judgement normal, mood normal. [] Current Patient Data Vital Signs Vital Signs Date Time Temp Pulse Resp B/P (MAP) Pulse Ox O2 Delivery O2 Flow Rate FiO2 09/26/17 09:40 95 Venturi Mask 09/26/17 09:04 98.3 76 28 233/96 (141) 3.0 98.3 Lab Values Laboratory Tests Test 09/26/17 09:40 09/26/17 10:00 O2 Saturation 89 % (92-99) L Arterial Blood pH 7.34 (7.35-7.45) L Arterial Blood pCO2 at Patient Temp 39 mmHg (35-46) Arterial Blood pO2 at Patient Temp 60 mmHg (65-108) L Arterial Blood HCO3 21 mmol/L (21-28) Arterial Blood Base Excess -5 mmol/L (-3-3) L FiO2 35.0 White Blood Count 8.2 x10^3/uL (4.0-11.0) Red Blood Count 3.97 x10^6/uL (3.50-5.40) Hemoglobin 11.6 g/dL (12.0-15.5) L Hematocrit 37.2 % (36.0-47.0) Mean Corpuscular Volume 94 fL (79-100) Mean Corpuscular Hemoglobin 29 pg (25-35) Mean Corpuscular Hemoglobin Concent 31 g/dL (31-37) Red Cell Distribution Width 19.2 % (11.5-14.5) H Platelet Count 240 x10^3/uL (140-400) Neutrophils (%) (Auto) 77 % (31-73) H Lymphocytes (%) (Auto) 10 % (24-48) L Monocytes (%) (Auto) 10 % (0-9) H Eosinophils (%) (Auto) 2 % (0-3) Basophils (%) (Auto) 1 % (0-3) Neutrophils # (Auto) 6.3 x10^3uL (1.8-7.7) Lymphocytes # (Auto) 0.8 x10^3/uL (1.0-4.8) L Monocytes # (Auto) 0.8 x10^3/uL (0.0-1.1) Eosinophils # (Auto) 0.2 x10^3/uL (0.0-0.7) Basophils # (Auto) 0.1 x10^3/uL (0.0-0.2) Sodium Level 142 mmol/L (136-145) Potassium Level 3.9 mmol/L (3.5-5.1) Chloride Level 105 mmol/L (98-107) Carbon Dioxide Level 25 mmol/L (21-32) Anion Gap 12 (6-14) Blood Urea Nitrogen 19 mg/dL (7-20) Creatinine 5.4 mg/dL (0.6-1.0) H Estimated GFR (Cockcroft-Gault) 9.8 Glucose Level 220 mg/dL (70-99) H Lactic Acid Level 1.2 mmol/L (0.4-2.0) Calcium Level 8.3 mg/dL (8.5-10.1) L Magnesium Level 2.2 mg/dL (1.8-2.4) Total Bilirubin 0.7 mg/dL (0.2-1.0) Direct Bilirubin 0.2 mg/dL (0.0-0.2) Aspartate Amino Transferase (AST) 19 U/L (15-37) Alanine Aminotransferase (ALT) 21 U/L (14-59) Alkaline Phosphatase 117 U/L (46-116) H Creatine Kinase 395 U/L (26-192) H Creatine Kinase MB (Mass) 2.0 ng/mL (0.0-3.6) Creatine Kinase MB Relative Index 0.5 % (0-4) Troponin I Quantitative < 0.017 ng/mL (0.000-0.055) MT-Cph-X-Type Natriuretic Peptide 4607 pg/mL (0-124) H Total Protein 7.2 g/dL (6.4-8.2) Albumin 3.8 g/dL (3.4-5.0) Thyroid Stimulating Hormone (TSH) 1.638 uIU/mL (0.358-3.74) Laboratory Tests 09/26/17 10:00 Laboratory Tests 09/26/17 10:00 EKG EKG [] Radiology/Procedures Radiology/Procedures [] [address] [place] [address] IMAGING REPORT Signed PATIENT: OLIVE ROBERTS ACCOUNT: [id number] : 1960 LOCATION: ER AGE: 57 SEX: F EXAM STATUS: PRE ER ORD. PHYSICIAN: LAZARA VICENTE MD REASON: sob PROCEDURE: PORTABLE CHEST 1V Portable chest, 09/26/2017: History: Shortness of breath Comparison is made to a study from 05/18/2017. The heart is enlarged. There is mild right basilar infiltrate. There is mild unchanged prominence of the minor fissure. The left lung is clear. The right lateral costophrenic angle is blunted raising the possibility of a small amount of right-sided pleural fluid. IMPRESSION: 1. Cardiomegaly. 2. Mild right basilar infiltrate suggesting mild pulmonary edema versus pneumonia. DICTATED and SIGNED BY: KELLY BROWN MD DATE: 09/26/17 0944 CC: LAZARA VICENTE MD; PETE TILLMAN APRN ~ Course & Med Decision Making Course & Med Decision Making Pertinent Labs and Imaging studies reviewed. (See chart for details) []She presented with shortness of breath given her smoking history and question history of COPD this could be an exacerbation of COPD but given her oral preparation for her colonoscopy which is a considerable amount of fluids she may be fluid overloaded and borderline hypertensive emergency causing congestive heart failure and cardiac ischemia. My goal at this time is to maximize respiratory oxygenation patient is placed on a nonrebreather at 5 L which improved her saturation from 85% to 92%. Patient is mildly tachypnea she is somewhat edematous with Lasix. We will hold fluids and treat her with steroids, albuterol and Atrovent, receive an ABG and complete her therapy with BiPAP. Patient is noted to be very hypertensive we may attempt to use nicardipine to treat her symptoms Time is now 9:50 AM patient is feeling better on BiPAP although IV access has not been established patient's ABG demonstrated before BiPAP was initiated had a pH is 7.34, PCO2 of 39 PaO2 of 60 on 5 L base excess of -4.6 patient also had a bicarbonate level of 20.8. This shows a mild respiratory insufficiency with acidosis patient will be continued on BiPAP as her saturations are 96% with 50% bleed in FiO2 patient will receive continuous nebs Lasix and nicardipine at this point I believe she would benefit from continued fluid removal and dialysis. Critical Care: The high probability of sudden, clinically significant deterioration in the patient's condition required the highest level of my preparedness to intervene urgently. The services I provided to this patient were to treat and/or prevent clinically significant deterioration. Services included the following: chart data review, reviewing nursing notes and/or old charts, documentation time, independent marketing consultant collaboration regarding findings and treatment options, medication orders and management, direct patient care, vital sign assessments and ordering, interpreting and reviewing diagnostic studies/ lab tests. Aggregate critical care time includes only time during which I was engaged in work directly related to the patient's care, as described above, whether at the bedside or elsewhere in the Emergency Department. It did not include time spent performing other reported procedures or the services of nurses or physician assistants. Critical Care Time: 45 Impression CBC is unremarkable, though she is mildly anemic at 11.6 and 37.2. Patient's abnormalities were respiratory nature with an oxygen saturation of 89 % on her 5 L nonrebreather mask shows a pH of 7.34 which is significant for respiratory insufficiency bicarbonate of 21. Patient placed on BiPAP which did improve her symptoms and her saturation. Patient was given IV Lasix to improve her diuresis. I will also arrange for asking tank car loader to arrange for emergent dialysis to remove this extra fluid from her system. The rest of her CMP is unremarkable with exception of elevated BNP which is likely secondary to renal failure with creatinine of 5.9. Patient's electrolytes otherwise unremarkable unremarkable. Patient has an elevated CK but a normal troponin at this time. Laboratory Tests Test 09/26/17 09:40 09/26/17 10:00 O2 Saturation 89 % (92-99) Arterial Blood pH 7.34 (7.35-7.45) Arterial Blood pCO2 at Patient Temp 39 mmHg (35-46) Arterial Blood pO2 at Patient Temp 60 mmHg (65-108) Arterial Blood HCO3 21 mmol/L (21-28) Arterial Blood Base Excess -5 mmol/L (-3-3) FiO2 35.0 White Blood Count 8.2 x10^3/uL (4.0-11.0) Red Blood Count 3.97 x10^6/uL (3.50-5.40) Hemoglobin 11.6 g/dL (12.0-15.5) Hematocrit 37.2 % (36.0-47.0) Mean Corpuscular Volume 94 fL (79-100) Mean Corpuscular Hemoglobin 29 pg (25-35) Mean Corpuscular Hemoglobin Concent 31 g/dL (31-37) Red Cell Distribution Width 19.2 % (11.5-14.5) Platelet Count 240 x10^3/uL (140-400) Neutrophils (%) (Auto) 77 % (31-73) Lymphocytes (%) (Auto) 10 % (24-48) Monocytes (%) (Auto) 10 % (0-9) Eosinophils (%) (Auto) 2 % (0-3) Basophils (%) (Auto) 1 % (0-3) Neutrophils # (Auto) 6.3 x10^3uL (1.8-7.7) Lymphocytes # (Auto) 0.8 x10^3/uL (1.0-4.8) Monocytes # (Auto) 0.8 x10^3/uL (0.0-1.1) Eosinophils # (Auto) 0.2 x10^3/uL (0.0-0.7) Basophils # (Auto) 0.1 x10^3/uL (0.0-0.2) Sodium Level 142 mmol/L (136-145) Chloride Level 105 mmol/L (98-107) Carbon Dioxide Level 25 mmol/L (21-32) Anion Gap 12 (6-14) Blood Urea Nitrogen 19 mg/dL (7-20) Estimated GFR (Cockcroft-Gault) 9.8 Glucose Level 220 mg/dL (70-99) Calcium Level 8.3 mg/dL (8.5-10.1) Total Bilirubin 0.7 mg/dL (0.2-1.0) Direct Bilirubin 0.2 mg/dL (0.0-0.2) Aspartate Amino Transf (AST/SGOT) 19 U/L (15-37) Alkaline Phosphatase 117 U/L (46-116) Creatine Kinase 395 U/L (26-192) Creatine Kinase MB (Mass) 2.0 ng/mL (0.0-3.6) Creatine Kinase MB Relative Index 0.5 % (0-4) Troponin I Quantitative < 0.017 ng/mL (0.000-0.055) Total Protein 7.2 g/dL (6.4-8.2) Albumin 3.8 g/dL (3.4-5.0) Woods Boss note: Internal medicine physician paged at approximately 10:45 AM Woods Boss called at of the service Consult called back at 10:50 AM Discussed the case I presented and they agreed with admission. Time of acceptance 10:50 a.m. "I have assessed this patient clinically and believe that their condition requires an admission to the hospital. After consulting the admitting physician about this case, they have asked that I admit this patient to their service as an inpatient based on the clinical presentation and my impression." Dragon Disclaimer Dragon Disclaimer This electronic medical record was generated, in whole or in part, using a voice recognition dictation system. Departure Departure Impression: Primary Impression: Dyspnea Additional Impressions: Malignant essential hypertension Heart failure Fluid overload ESRD due to hypertension ESRD needing dialysis Disposition: ADMITTED INPATIENT Admitting Physician: Other Condition: GUARDED Referrals: PETE TILLMAN APRN (PCP) Problem Qualifiers LAZARA VICENTE MD Sep 26, 2017 09:41
--- NOTE | 2017-09-26 09:48 | RAD ---
Portable chest, 09/26/2017: History: Shortness of breath Comparison is made to a study from 05/18/2017. The heart is enlarged. There is mild right basilar infiltrate. There is mild unchanged prominence of the minor fissure. The left lung is clear. The right lateral costophrenic angle is blunted raising the possibility of a small amount of right-sided pleural fluid. IMPRESSION: 1. Cardiomegaly. 2. Mild right basilar infiltrate suggesting mild pulmonary edema versus pneumonia.
[2017-09-26 09:51] LABS: HCO3 ABG 21 mmol/L (21-28); PCO2 ABG 39 mmHg (35-46); PH ABG 7.34 (7.35-7.45); PO2 ABG 60 mmHg (65-108); SAT O2 ABG 89 % (92-99)
[2017-09-26 10:14] LABS: BASO # 0.1 x10^3/uL (0.0-0.2); BASO % 1 % (0-3); EOS % 2 % (0-3); HEMATOCRIT 37.2 % (36.0-47.0); HEMOGLOBIN 11.6 g/dL (12.0-15.5); LYMPH # 0.8 x10^3/uL (1.0-4.8); LYMPH % 10 % (24-48); MEAN CORPUSCULAR HEMOGLOBIN 29 pg (25-35); MEAN CORPUSCULAR HGB CONC 31 g/dL (31-37); MEAN CORPUSCULAR VOLUME 94 fL (79-100); MONO % 10 % (0-9); NEUT % 77 % (31-73); PLATELET COUNT 240 x10^3/uL (140-400); RED BLOOD COUNT 3.97 x10^6/uL (3.50-5.40); RED CELL DISTRIBUTION WIDTH 19.2 % (11.5-14.5); WHITE BLOOD COUNT 8.2 x10^3/uL (4.0-11.0)
[2017-09-26 10:30] LABS: CALCIUM 8.3 mg/dL (8.5-10.1); CREATININE 5.4 mg/dL (0.6-1.0); GFR 9.8; POTASSIUM 3.9 mmol/L (3.5-5.1)
[2017-09-26 10:41] LABS: ALBUMIN 3.8 g/dL (3.4-5.0); DIRECT BILIRUBIN 0.2 mg/dL (0.0-0.2); MAGNESIUM 2.2 mg/dL (1.8-2.4); TOTAL BILIRUBIN 0.7 mg/dL (0.2-1.0); TOTAL PROTEIN 7.2 g/dL (6.4-8.2)
[2017-09-26] MEDS ORDERED: fentaNYL PF VIAL 100 MCG/2 ML VIAL IV PRN (11:00)
[2017-09-26] MEDS ORDERED: ONDANSETRON PF 4 MG/2 ML VIAL. IV PRN (11:00)
[2017-09-26] MEDS ORDERED: CIPROFLOXACIN 400MG PREMIX 200 ML IV ONE (11:30)
--- NOTE | 2017-09-26 13:43 | EKG ---
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
--- NOTE | 2017-09-26 13:54 | PDOC2 ---
CARDIAC CONSULT DATE OF CONSULT Date of Consult DATE: 09/26/17 TIME: 13:42 REASON FOR CONSULT Reason for Consult: hypertensive emergency REFERRING PHYSICIAN Referring Physician: Kody SOURCE Source: Chart review, Patient HISTORY OF PRESENT ILLNESS HISTORY OF PRESENT ILLNESS This is a pleasant 57 yo female admitted for complains of SOA. Reports that she is compliant with her multiple BP meds and actually took her BP meds this morning as well. She does have some CHO but not different from her baseline. She has been doing well otherwise prior to this morning, citing no increasing leg edema, no SOA at rest, no PND, orthopnea. She had dialysis yesterday and extra fluid was taken off in preparation to her colonoscopy. She started her Golyte prep which has about 4 L of fluid and throughout the day and overnight she did not keep track of other extra fluids she had ingested. This morning when she got to [facility] for colonoscopy, she could not lay flat and felt more SOA. She was then brought to ED and was noted with CHF and uncontrolled HTN. She was then placed on cardene. She continues to smoke tobacco but has decreased the amount and has not been tested for RONAK. No CP, palpitations, vomiting. PAST MEDICAL HISTORY Past Medical History Cardiovascular: HTN, Hyperlipidemia Pulmonary: Other (chronic tobaccoism) CENTRAL NERVOUS SYSTEM: Vertigo GI: Constipation, GERD Heme/Onc: Anemia NOS, DVT? Hepatobiliary: No pertinent hx Psych: No pertinent hx Musculoskeletal: Osteoarthritis Rheumatologic: No pertinent hx Infectious disease: No pertinent hx ENT: No pertinent hx Renal/: Chronic renal failure (ESRD with HD) Endocrine: Diabetes (2), Other (morbid obesity) Dermatology: No pertinent hx PAST SURGICAL HISTORY Past Surgical History , AV graft placement/removal for HD to RA and PD, New 09/2016 [place] AV graft FAMILY HISTORY Family History Diabetes, Hypertension, Kidney Disease (mother ESRD on HD) SOCIAL HISTORY Social History Smoke: 1 pack per day ALCOHOL: rare Drugs: None Lives: home with family CURRENT MEDICATIONS CURRENT MEDICATIONS Current Medications Medications (Trade) Dose Ordered Sig/Anil Route PRN Reason Start Time Stop Time Status Last Admin Dose Admin Albuterol/ Ipratropium (Duoneb) 3 ml 1X ONCE NEB 09/26/17 09:15 09/26/17 09:23 DC 09/26/17 09:39 Methylprednisolone Sodium Succinate (SOLU-Medrol 125MG VIAL) 125 mg 1X ONCE IV 09/26/17 09:15 09/26/17 09:23 DC 09/26/17 10:12 Albuterol Sulfate (Ventolin Neb Soln) 10 mg 1X ONCE CONT NEB 09/26/17 09:15 09/26/17 09:23 DC 09/26/17 09:39 Furosemide (Lasix) 80 mg 1X ONCE IVP 09/26/17 09:15 09/26/17 09:23 DC 09/26/17 10:12 Nicardipine HCl 50 mg/Sodium Chloride 270 ml @ 0 mls/hr CONT PRN IV SEE I/O RECORD 09/26/17 09:45 09/26/17 10:26 Ciprofloxacin/ Dextrose 200 ml @ 200 mls/hr 1X ONCE IV 09/26/17 11:30 09/26/17 12:29 DC 09/26/17 11:45 ALLERGIES ALLERGIES: Coded Allergies: erythromycin base (Verified Adverse Reaction, Intermediate, vomiting, ) ROS Review of System 14 point ROS evaluated with pertinent positives noted per HPI PHYSICAL EXAM General: Alert, Oriented X3, Cooperative, mild distress HEENT: Atraumatic, Mucous membr. moist/pink Lungs: Other (basilar crackles) Heart: Regular rate (SR), Normal S1, Normal S2, Other (S3; 2/6 systolic murmur to LLS border) Abdomen: Soft, No tenderness Extremities: No cyanosis, Other (trace LE edema; venous dermatitis) Skin: No breakdown, No significant lesion Neuro: Normal speech, Sensation intact Psych/Mental Status: Mental status NL, Mood NL MUSCULOSKELETAL: Osteoarthritic changes both hands VITALS VITALS Vital Signs Date Time Temp Pulse Resp B/P (MAP) Pulse Ox O2 Delivery O2 Flow Rate FiO2 09/26/17 11:45 72 20 167/70 (102) 94 Venturi Mask 09/26/17 09:04 98.3 3.0 98.3 LABS Lab: Laboratory Tests Test 09/26/17 09:40 09/26/17 10:00 O2 Saturation 89 % (92-99) Arterial Blood pH 7.34 (7.35-7.45) Arterial Blood pCO2 at Patient Temp 39 mmHg (35-46) Arterial Blood pO2 at Patient Temp 60 mmHg (65-108) Arterial Blood HCO3 21 mmol/L (21-28) Arterial Blood Base Excess -5 mmol/L (-3-3) FiO2 35.0 White Blood Count 8.2 x10^3/uL (4.0-11.0) Red Blood Count 3.97 x10^6/uL (3.50-5.40) Hemoglobin 11.6 g/dL (12.0-15.5) Hematocrit 37.2 % (36.0-47.0) Mean Corpuscular Volume 94 fL (79-100) Mean Corpuscular Hemoglobin 29 pg (25-35) Mean Corpuscular Hemoglobin Concent 31 g/dL (31-37) Red Cell Distribution Width 19.2 % (11.5-14.5) Platelet Count 240 x10^3/uL (140-400) Neutrophils (%) (Auto) 77 % (31-73) Lymphocytes (%) (Auto) 10 % (24-48) Monocytes (%) (Auto) 10 % (0-9) Eosinophils (%) (Auto) 2 % (0-3) Basophils (%) (Auto) 1 % (0-3) Neutrophils # (Auto) 6.3 x10^3uL (1.8-7.7) Lymphocytes # (Auto) 0.8 x10^3/uL (1.0-4.8) Monocytes # (Auto) 0.8 x10^3/uL (0.0-1.1) Eosinophils # (Auto) 0.2 x10^3/uL (0.0-0.7) Basophils # (Auto) 0.1 x10^3/uL (0.0-0.2) Sodium Level 142 mmol/L (136-145) Potassium Level 3.9 mmol/L (3.5-5.1) Chloride Level 105 mmol/L (98-107) Carbon Dioxide Level 25 mmol/L (21-32) Anion Gap 12 (6-14) Blood Urea Nitrogen 19 mg/dL (7-20) Creatinine 5.4 mg/dL (0.6-1.0) Estimated GFR (Cockcroft-Gault) 9.8 Glucose Level 220 mg/dL (70-99) Lactic Acid Level 1.2 mmol/L (0.4-2.0) Calcium Level 8.3 mg/dL (8.5-10.1) Magnesium Level 2.2 mg/dL (1.8-2.4) Total Bilirubin 0.7 mg/dL (0.2-1.0) Direct Bilirubin 0.2 mg/dL (0.0-0.2) Aspartate Amino Transf (AST/SGOT) 19 U/L (15-37) Alanine Aminotransferase (ALT/SGPT) 21 U/L (14-59) Alkaline Phosphatase 117 U/L (46-116) Creatine Kinase 395 U/L (26-192) Creatine Kinase MB (Mass) 2.0 ng/mL (0.0-3.6) Creatine Kinase MB Relative Index 0.5 % (0-4) Troponin I Quantitative < 0.017 ng/mL (0.000-0.055) GD-Kof-L-Type Natriuretic Peptide 4607 pg/mL (0-124) Total Protein 7.2 g/dL (6.4-8.2) Albumin 3.8 g/dL (3.4-5.0) Thyroid Stimulating Hormone (TSH) 1.638 uIU/mL (0.358-3.74) ECHOCARDIOGRAM ECHOCARDIOGRAM <Conclusion> The left ventricular systolic function is normal. The Ejection Fraction is 55-60%. There is normal LV segmental wall motion. The left atrium is mildly dilated. Trace mitral regurgitation. Trace tricuspid regurgitation. There is no evidence of significant pericardial effusion. DATE: 04/01/17 1357 STRESS TEST STRESS TEST Conclusion 1. Regadenoson cardioisotope stress test did not show any evidence of ischemia or infarct. 2. Normal left ventricular systolic function with ejection fraction calculated at 68%. 3. Low risk for cardiac events. DATE: 05/21/17 1149 ASSESSMENT/PLAN ASSESSMENT/PLAN 1. Malignant HTN: RONAK contributing. Likely induced by fluid overload. 2. Acute on chronic diastolic CHF: induced by uncontrolled HTN and fluid shifts/ overload 3. ESRD 4. Morbid obesity 5. Suspecting RONAK with likely COPD as well 6. Continued tobaccoism 7. Post bowel prep for outpt colonoscopy: used golyte and consumed 4 L of it and did not keep track of other clear liquid beverages. Recommendations 1. Fluid off loading per HD 2. Restart home BP meds, will titrate off cardene 3. Imdur x1. 4. Supportive care. 5. Smoking cessation, will need outpt sleep study. 6. Restart ASA. Will continue to hold plavix until colonoscopy schedule is confirmed and cleared by GI. Problems: DES SAEED APRN Sep 26, 2017 13:54
[2017-09-26] MEDS: ISOSORBIDE MONONITRATE ER 30 MG TAB.ER.24H PO SCH (15:16)
[2017-09-26] MEDS: amLODIPine BESYLATE 10 MG TABLET PO SCH (15:17)
[2017-09-26] MEDS: ASPIRIN CHEWABLE 81 MG TABLET. PO SCH (15:17)
[2017-09-26] MEDS ORDERED: DEXTROSE 50% 25 GM / 50ML DISP.SYRIN. IV PRN (15:30)
[2017-09-26] MEDS: SEVELAMER CARBONATE 2.4 GM PACKET. PO SCH (16:30)
[2017-09-26] MEDS: cloNIDine HCL 0.3 MG TABLET PO SCH ×2 (16:30→21:08)
[2017-09-26] MEDS: FOLIC/VIT B COMP W-C (RENAL) TABLET. PO SCH (16:30)
[2017-09-26] MEDS: LABETALOL HCL 100 MG TABLET. PO SCH ×2 (16:31→21:08)
[2017-09-26] MEDS: INSULIN ASPART 300 UNITS/3 ML INSULN.PEN SQ SCH (18:10)
[2017-09-26] MEDS: DOCUSATE SODIUM 100 MG CAPSULE. PO SCH (21:09)
[2017-09-26] MEDS: LISINOPRIL 40 MG TABLET. PO SCH (21:10)
[2017-09-26] MEDS: INSULIN DETEMIR 300 UNITS/3 ML INSULN.PEN. SQ SCH (21:12)
[2017-09-27] VITALS (14 sets, daily range): BP systolic 113–160; BP diastolic 48–67
[2017-09-27 06:27] LABS: BASO % 0 % (0-3); EOS % 0 % (0-3); HEMATOCRIT 32.8 % (36.0-47.0); HEMOGLOBIN 10.2 g/dL (12.0-15.5); LYMPH # 0.5 x10^3/uL (1.0-4.8); LYMPH % 6 % (24-48); MEAN CORPUSCULAR HEMOGLOBIN 29 pg (25-35); MEAN CORPUSCULAR HGB CONC 31 g/dL (31-37); MEAN CORPUSCULAR VOLUME 95 fL (79-100); MONO % 10 % (0-9); NEUT % 83 % (31-73); PLATELET COUNT 230 x10^3/uL (140-400); RED BLOOD COUNT 3.46 x10^6/uL (3.50-5.40); RED CELL DISTRIBUTION WIDTH 18.8 % (11.5-14.5)
[2017-09-27] MEDS: SEVELAMER CARBONATE 2.4 GM PACKET. PO SCH ×3 (08:41→17:00)
[2017-09-27] MEDS: ISOSORBIDE MONONITRATE ER 30 MG TAB.ER.24H PO SCH (08:42)
[2017-09-27] MEDS: amLODIPine BESYLATE 10 MG TABLET PO SCH (08:43)
[2017-09-27] MEDS: LISINOPRIL 40 MG TABLET. PO SCH ×2 (08:43→22:47)
[2017-09-27] MEDS: DOCUSATE SODIUM 100 MG CAPSULE. PO SCH ×2 (08:43→22:45)
[2017-09-27] MEDS: FOLIC/VIT B COMP W-C (RENAL) TABLET. PO SCH (08:43)
[2017-09-27] MEDS: cloNIDine HCL 0.3 MG TABLET PO SCH ×4 (08:45→22:46)
[2017-09-27] MEDS: INSULIN ASPART 300 UNITS/3 ML INSULN.PEN SQ SCH ×7 (08:48→17:00)
[2017-09-27] MEDS ORDERED: ONDANSETRON PF 4 MG/2 ML VIAL. IV PRN (09:00)
[2017-09-27] MEDS ORDERED: DEXTROSE 50% 25 GM / 50ML DISP.SYRIN. IV PRN (09:00)
[2017-09-27] MEDS: LABETALOL HCL 100 MG TABLET. PO SCH ×3 (09:00→17:00)
[2017-09-27] MEDS ORDERED: ACETAMINOPHEN 325 MG TABLET. PO PRN (09:00)
[2017-09-27] MEDS: ASPIRIN CHEWABLE 81 MG TABLET. PO SCH (09:00)
[2017-09-27] MEDS: CIPROFLOXACIN 400MG PREMIX 200 ML IV SCH (09:36)
[2017-09-27] MEDS: CLOPIDOGREL BISULFATE 75 MG TABLET PO SCH (10:00)
--- NOTE | 2017-09-27 12:12 | PDOC1 ---
History and Physical Date of Admission Date of Admission DATE: 09/27/17 TIME: 12:06 Identification/Chief Complaint Chief Complaint Shortness of breath Problems: Source Source: Caregiver, Chart review, Patient History of Present Illness History of Present Illness 37-year-old -[place] female who was actually getting ready for a colonoscopy plan as outpatient she was getting GoLYTELY etc. no known cardiac history but now with shortness of breath. Assessment of cardiology was maybe got fluid overload from all the bowel prep she took in. Her ABG showed a pH of 7.340-89 CO2 39. She has CKD from diabetes hypertension, she actually is ESRD, she is on dialysis. Creatinine of 5.4. BNP 467 chest x-ray shows some fluid overload. She has diabetes on insulin. Blood sugars are running high. Now feeling better seen in the ICU. I am okay to transfer out to [facility]. She will be liquid diet and plan for C scope tomorrow. I will consult Nephrology given her kidney numbers. I will also resume her home meds namely 15 units NovoLog 3 times a day as her blood sugars are running high. Discussed with MILLINERY COPYIST Past Medical History Cardiovascular: HTN, Hyperlipidemia Pulmonary: Other CENTRAL NERVOUS SYSTEM: Vertigo GI: Constipation, GERD Heme/Onc: Anemia NOS Hepatobiliary: No pertinent hx Psych: No pertinent hx Musculoskeletal: Osteoarthritis, Other Rheumatologic: No pertinent hx Infectious disease: No pertinent hx Renal/: Chronic renal failure Endocrine: Diabetes, Hyperparathyroidism Past Surgical History Past Surgical History: Other (AV fistula) Family History Family History: Diabetes, Hypertension, Kidney Disease, Other Social History Smoke: No ALCOHOL: rare Drugs: None Current Problem List Problem List Problems Medical Problems: (1) Dyspnea Status: Acute (2) Fluid overload Status: Acute (3) Heart failure Status: Acute Problems: Current Medications Current Medications Current Medications Albuterol/ Ipratropium (Duoneb) 3 ml 1X ONCE NEB Last administered on 09:39; Start 09/26/17 at 09:15; Stop 09/26/17 at 09:23; Status DC Methylprednisolone Sodium Succinate (SOLU-Medrol 125MG VIAL) 125 mg 1X ONCE IV Last administered on 09/26/17t 10:12; Start 09/26/17 at 09:15; Stop at 09:23; Status DC Albuterol Sulfate (Ventolin Neb Soln) 10 mg 1X ONCE CONT NEB Last administered on 09/26/17 09:39; Start 09/26/17 at 09:15; Stop 09/26/17 at 09 :23; Status DC Furosemide (Lasix) 80 mg 1X ONCE IVP Last administered on 09/26/17 10:12; Start 09/26/17 at 09:15; Stop 09/26/17 at 09:23; Status DC Nicardipine HCl 50 mg/Sodium Chloride 270 ml @ 0 mls/hr CONT PRN IV SEE I/O RECORD Last administered on 09/26/17 18:33; Start 09/26/17 at 09:45 Ondansetron HCl (Zofran) 4 mg PRN Q8HRS PRN IV NAUSEA/VOMITING; Start at 11:00; Stop 09/27/17 at 08:54; Status DC Fentanyl Citrate (Fentanyl 2ml Vial) 50 mcg PRN Q1HR PRN IV PAIN; Start at 11:00; Stop 09/27/17 at 10:59; Status DC Ciprofloxacin/ Dextrose 200 ml @ 200 mls/hr Q24H IV Last administered on 09/27 09:36; Start 09/27/17 at 09:00 Ciprofloxacin/ Dextrose 200 ml @ 200 mls/hr 1X ONCE IV Last administered on 09/26/17 11:45; Start 09/26/17 at 11:30; Stop 09/26/17 at 12:29; Status DC Amlodipine Besylate (Norvasc) 10 mg DAILY PO Last administered on 09/27/17 08 :43; Start 09/26/17 at 15:00 Aspirin (Children'S Aspirin) 81 mg DAILY PO Last administered on 09/26/17 15: 17; Start 09/26/17 at 15:00 Clonidine HCl (Catapres) 0.3 mg QID PO Last administered on 09/27/17 12:04; Start 09/26/17 at 17:00 Lisinopril (Prinivil) 40 mg BID PO Last administered on 09/27/17 08:43; Start 09/26/17 at 21:00 Hydralazine HCl (Apresoline) 100 mg TID PO Last administered on 09/27/17 08: 44; Start 09/26/17 at 14:45 Labetalol HCl (Trandate) 300 mg QID PO Last administered on 09/27/17 12:03; Start 09/26/17 at 17:00 Isosorbide Mononitrate (Imdur) 30 mg DAILY PO Last administered on 09/27/17 08:42; Start 09/26/17 at 15:00 Docusate Sodium (Colace) 200 mg BID PO Last administered on 09/27/17 08:43; Start 09/26/17 at 21:00 Vitamin B Complex/ Vitamin C (Olga-Jill) 1 tab DAILY PO Last administered on 08:43; Start 09/26/17 at 16:00 Sevelamer Carbonate (Renvela) 2.4 gm TIDWMEALS PO Last administered on 12:02; Start 09/26/17 at 17:00 Insulin Detemir (Levemir) 18 units QHS SQ Last administered on 09/26/17 21:12 ; Start 09/26/17 at 21:00 Insulin Aspart (NovoLOG) custom scale TIDWMEALS SQ Last administered on 08:48; Start 09/26/17 at 17:00; Stop 09/27/17 at 08:54; Status DC Dextrose (Dextrose 50%-Water Syringe) 12.5 gm PRN Q15MIN PRN IV SEE COMMENTS; Start 09/26/17 at 15:30; Status Cancel Ondansetron HCl (Zofran) 4 mg PRN Q6HRS PRN IV NAUSEA/VOMITING; Start at 09:00; Stop 09/28/17 at 08:59 Acetaminophen (Tylenol) 650 mg PRN Q6HRS PRN PO pain; Start 09/27/17 at 09:00 Clopidogrel Bisulfate (Plavix) 75 mg DAILY PO ; Start 09/27/17 at 10:00 Insulin Aspart (NovoLOG) 15 units TIDWMEALS SQ Last administered on 09/27/17 12:05; Start 09/27/17 at 10:00 Insulin Aspart (NovoLOG) 0-9 UNITS TIDWMEALS SQ Last administered on 12:05; Start 09/27/17 at 10:00 Dextrose (Dextrose 50%-Water Syringe) 12.5 gm PRN Q15MIN PRN IV SEE COMMENTS; Start 09/27/17 at 09:00 Active Scripts Active Promethazine Hcl 25 Mg Tablet 25 Mg PO Q6H PRN Reported Labetalol Hcl 300 Mg Tablet 1 Tab PO QID Novolog Flexpen (Insulin Aspart) 100 Unit/1 Ml Insuln.pen 15 Units SQ TIDWMEALS Levemir (Insulin Detemir) 100 Unit/1 Ml Vial 18 Unit SQ QHS Colace (Docusate Sodium) 100 Mg Capsule 200 Mg PO BID Renvela (Sevelamer Carbonate) 2.4 Gm Powd.pack 2.4 Gm PO TIDWMEALS Plavix (Clopidogrel Bisulfate) 75 Mg Tablet 75 Mg PO DAILY Hydralazine Hcl 100 Mg Tablet 100 Mg PO TID Amlodipine Besylate 10 Mg Tablet 10 Mg PO DAILY Nephro-Jill Tablet (Folic Acid/Vitamin B Comp W-C) 0.8 Mg Tablet 0.8 Mg PO DAILY Aspirin 81 Mg Tab.chew 81 Mg PO DAILY Miralax (Polyethylene Glycol 3350) 17 Gm Powd.pack 17 Gm PO DAILY Lisinopril 40 Mg Tablet 40 Mg PO BID Clonidine Hcl 0.3 Mg Tablet 0.3 Mg PO QID Allergies Allergies: Coded Allergies: erythromycin base (Verified Adverse Reaction, Intermediate, vomiting, ) ROS Review of System she feels better, was initially short of breath, but no chest pain A 14 point ROS was completed with the following noted as positive: Other systems reviewed and negative. \CONSTITUTIONAL: No fever or chills EYES: No recent changes SKIN: No rash or itching CARDIOVASCULAR: No chest pain, syncope, palpitations, or edema RESPIRATORY: No SOB or cough GASTROINTESTINAL: No nausea, vomiting or abdominal pain NEUROLOGICAL: No headaches or weakness ENDOCRINE: No cold or heat intolerance GENITOURINARY: No urgency or frequency of urination MUSCULOSKELETAL: No back pain or joint pain LYMPHATICS: No enlarged lymph nodes PSYCHIATRIC: No anxiety or depression Physical Exam Physical Exam Physical Exam General: Alert, Oriented X3, Cooperative, No acute distress HEENT: Atraumatic, PERRLA Lungs: Normal air movement, Other (wheezy), dec BS, poor effort, obese, inc ap diameter Heart: S1S2, RRR, no thrills, no gallops, no murmurs Cardiovascular: S1, S2 Abdomen: Normal bowel sounds, Soft, No tenderness, No hepatosplenomegaly, No masses, Other (obese) Rectal Exam: not examined PELVIC: Nml ext genitalia Extremities: No rashes, no edema, pulses full and equal Skin: No rashes, No breakdown, No significant lesion Neuro: Normal gait, Normal speech, Strength at 5/5 X4 ext, Normal tone, Sensation intact, Cranial nerves 3-12 NL, Reflexes 2+ Psych/Mental Status: Mental status NL, Mood NL Vitals Vitals Vital Signs Date Time Temp Pulse Resp B/P (MAP) Pulse Ox O2 Delivery O2 Flow Rate FiO2 09/27/17 12:04 69 136/49 09/27/17 10:05 19 99 Nasal Cannula 4.0 09/27/17 04:00 98.0 98.0 Labs Labs Laboratory Tests Test 09/26/17 09:40 09/26/17 10:00 09/26/17 14:00 09/26/17 18:01 O2 Saturation 89 % (92-99) Arterial Blood pH 7.34 (7.35-7.45) Arterial Blood pCO2 at Patient Temp 39 mmHg (35-46) Arterial Blood pO2 at Patient Temp 60 mmHg (65-108) Arterial Blood HCO3 21 mmol/L (21-28) Arterial Blood Base Excess -5 mmol/L (-3-3) FiO2 35.0 White Blood Count 8.2 x10^3/uL (4.0-11.0) Red Blood Count 3.97 x10^6/uL (3.50-5.40) Hemoglobin 11.6 g/dL (12.0-15.5) Hematocrit 37.2 % (36.0-47.0) Mean Corpuscular Volume 94 fL (79-100) Mean Corpuscular Hemoglobin 29 pg (25-35) Mean Corpuscular Hemoglobin Concent 31 g/dL (31-37) Red Cell Distribution Width 19.2 % (11.5-14.5) Platelet Count 240 x10^3/uL (140-400) Neutrophils (%) (Auto) 77 % (31-73) Lymphocytes (%) (Auto) 10 % (24-48) Monocytes (%) (Auto) 10 % (0-9) Eosinophils (%) (Auto) 2 % (0-3) Basophils (%) (Auto) 1 % (0-3) Neutrophils # (Auto) 6.3 x10^3uL (1.8-7.7) Lymphocytes # (Auto) 0.8 x10^3/uL (1.0-4.8) Monocytes # (Auto) 0.8 x10^3/uL (0.0-1.1) Eosinophils # (Auto) 0.2 x10^3/uL (0.0-0.7) Basophils # (Auto) 0.1 x10^3/uL (0.0-0.2) Sodium Level 142 mmol/L (136-145) Potassium Level 3.9 mmol/L (3.5-5.1) Chloride Level 105 mmol/L (98-107) Carbon Dioxide Level 25 mmol/L (21-32) Anion Gap 12 (6-14) Blood Urea Nitrogen 19 mg/dL (7-20) Creatinine 5.4 mg/dL (0.6-1.0) Estimated GFR (Cockcroft-Gault) 9.8 Glucose Level 220 mg/dL (70-99) Lactic Acid Level 1.2 mmol/L (0.4-2.0) Calcium Level 8.3 mg/dL (8.5-10.1) Magnesium Level 2.2 mg/dL (1.8-2.4) Total Bilirubin 0.7 mg/dL (0.2-1.0) Direct Bilirubin 0.2 mg/dL (0.0-0.2) Aspartate Amino Transf (AST/SGOT) 19 U/L (15-37) Alanine Aminotransferase (ALT/SGPT) 21 U/L (14-59) Alkaline Phosphatase 117 U/L (46-116) Creatine Kinase 395 U/L (26-192) Creatine Kinase MB (Mass) 2.0 ng/mL (0.0-3.6) Creatine Kinase MB Relative Index 0.5 % (0-4) Troponin I Quantitative < 0.017 ng/mL (0.000-0.055) WQ-Ryq-W-Type Natriuretic Peptide 4607 pg/mL (0-124) Total Protein 7.2 g/dL (6.4-8.2) Albumin 3.8 g/dL (3.4-5.0) Thyroid Stimulating Hormone (TSH) 1.638 uIU/mL (0.358-3.74) Nasal Screen MRSA (PCR) Negative (Negative) Glucose (Fingerstick) 336 mg/dL (70-99) Test 09/26/17 20:44 09/27/17 05:00 09/27/17 07:50 09/27/17 11:49 Glucose (Fingerstick) 371 mg/dL (70-99) 383 mg/dL (70-99) 337 mg/dL (70-99) White Blood Count 8.0 x10^3/uL (4.0-11.0) Red Blood Count 3.46 x10^6/uL (3.50-5.40) Hemoglobin 10.2 g/dL (12.0-15.5) Hematocrit 32.8 % (36.0-47.0) Mean Corpuscular Volume 95 fL (79-100) Mean Corpuscular Hemoglobin 29 pg (25-35) Mean Corpuscular Hemoglobin Concent 31 g/dL (31-37) Red Cell Distribution Width 18.8 % (11.5-14.5) Platelet Count 230 x10^3/uL (140-400) Neutrophils (%) (Auto) 83 % (31-73) Lymphocytes (%) (Auto) 6 % (24-48) Monocytes (%) (Auto) 10 % (0-9) Eosinophils (%) (Auto) 0 % (0-3) Basophils (%) (Auto) 0 % (0-3) Neutrophils # (Auto) 6.7 x10^3uL (1.8-7.7) Lymphocytes # (Auto) 0.5 x10^3/uL (1.0-4.8) Monocytes # (Auto) 0.8 x10^3/uL (0.0-1.1) Eosinophils # (Auto) 0.0 x10^3/uL (0.0-0.7) Basophils # (Auto) 0.0 x10^3/uL (0.0-0.2) Laboratory Tests Test 09/26/17 14:00 09/26/17 18:01 09/26/17 20:44 09/27/17 05:00 Nasal Screen MRSA (PCR) Negative (Negative) Glucose (Fingerstick) 336 mg/dL (70-99) 371 mg/dL (70-99) White Blood Count 8.0 x10^3/uL (4.0-11.0) Red Blood Count 3.46 x10^6/uL (3.50-5.40) Hemoglobin 10.2 g/dL (12.0-15.5) Hematocrit 32.8 % (36.0-47.0) Mean Corpuscular Volume 95 fL (79-100) Mean Corpuscular Hemoglobin 29 pg (25-35) Mean Corpuscular Hemoglobin Concent 31 g/dL (31-37) Red Cell Distribution Width 18.8 % (11.5-14.5) Platelet Count 230 x10^3/uL (140-400) Neutrophils (%) (Auto) 83 % (31-73) Lymphocytes (%) (Auto) 6 % (24-48) Monocytes (%) (Auto) 10 % (0-9) Eosinophils (%) (Auto) 0 % (0-3) Basophils (%) (Auto) 0 % (0-3) Neutrophils # (Auto) 6.7 x10^3uL (1.8-7.7) Lymphocytes # (Auto) 0.5 x10^3/uL (1.0-4.8) Monocytes # (Auto) 0.8 x10^3/uL (0.0-1.1) Eosinophils # (Auto) 0.0 x10^3/uL (0.0-0.7) Basophils # (Auto) 0.0 x10^3/uL (0.0-0.2) Test 09/27/17 07:50 09/27/17 11:49 Glucose (Fingerstick) 383 mg/dL (70-99) 337 mg/dL (70-99) VTE Prophylaxis Ordered VTE Prophylaxis Devices: Yes VTE Pharmacological Prophylaxi: Yes Assessment/Plan Assessment/Plan 1. Malignant HTN: RONAK contributing. Likely induced by fluid overload. 2. Acute on chronic diastolic CHF: induced by uncontrolled HTN and fluid shifts/ overload 3. ESRD 4. Morbid obesity 5. Suspecting RONAK with likely COPD as well 6. Continued tobaccoism 7. Post bowel prep for outpt colonoscopy: used golyte and consumed 4 L of it and did not keep track of other clear liquid beverages. Plan: Admit 2 midnights Follow cardiology recommendation, possibly might need echo, diuresis Continue home medications, resume sliding scale insulin and NovoLog 15 units 3 times a day, I would place him liquid diet given plans for colonoscopy. She mentions tomorrow. Consult GI for these plans of colonoscopy Consult renal given ESRD on dialysis. PT/OT Ok to t.o ICU to [facility] d/w with MILLINERY COPYIST FEDERICO GODOY MD Sep 27, 2017 12:12
--- NOTE | 2017-09-27 12:24 | PDOC2 ---
CONSULT Date of Consult Date of Consult DATE: 09/27/17 TIME: 12:20 Reason for Consult Reason for Consult: ESRD Referring Physician Referring Physician: JOI Identification/Chief Complaint Chief Complaint SOB Problems: Source Source: Chart review, Patient History of Present Illness Reason for Visit: THIS IS A 57 YR OLD WITH SOB. SHE WAS DOING A GOLYTELY PREP FOR GI ENDOSCOPY. SHE HAS ESRD AND IS ON TTS SCHEDULE. LABS ARE C/W ESRD. ESRD DUE TO HTN AND DM. NO OTHER HX Past Medical History Cardiovascular: HTN, Hyperlipidemia Pulmonary: Other CENTRAL NERVOUS SYSTEM: Vertigo GI: Constipation, GERD Heme/Onc: Anemia NOS Hepatobiliary: No pertinent hx Psych: No pertinent hx Musculoskeletal: Osteoarthritis, Other Rheumatologic: No pertinent hx Infectious disease: No pertinent hx Renal/: Chronic renal failure Endocrine: Diabetes, Hyperparathyroidism Past Surgical History Past Surgical History: Other (AV fistula) Family History Family History: Diabetes, Hypertension, Kidney Disease, Other Social History No ALCOHOL: rare Drugs: None Lives: with Family Current Problem List Problem List Problems Medical Problems: (1) Dyspnea Status: Acute (2) Fluid overload Status: Acute (3) Heart failure Status: Acute Current Medications Current Medications Current Medications Albuterol/ Ipratropium (Duoneb) 3 ml 1X ONCE NEB Last administered on 09:39; Start 09/26/17 at 09:15; Stop 09/26/17 at 09:23; Status DC Methylprednisolone Sodium Succinate (SOLU-Medrol 125MG VIAL) 125 mg 1X ONCE IV Last administered on 09/26/17 10:12; Start 09/26/17 at 09:15; Stop at 09:23; Status DC Albuterol Sulfate (Ventolin Neb Soln) 10 mg 1X ONCE CONT NEB Last administered on 09/26/17 09:39; Start 09/26/17 at 09:15; Stop 09/26/17 at 09 :23; Status DC Furosemide (Lasix) 80 mg 1X ONCE IVP Last administered on 09/26/17 10:12; Start 09/26/17 at 09:15; Stop 09/26/17 at 09:23; Status DC Nicardipine HCl 50 mg/Sodium Chloride 270 ml @ 0 mls/hr CONT PRN IV SEE I/O RECORD Last administered on 09/26/17 18:33; Start 09/26/17 at 09:45 Ondansetron HCl (Zofran) 4 mg PRN Q8HRS PRN IV NAUSEA/VOMITING; Start at 11:00; Stop 09/27/17 at 08:54; Status DC Fentanyl Citrate (Fentanyl 2ml Vial) 50 mcg PRN Q1HR PRN IV PAIN; Start at 11:00; Stop 09/27/17 at 10:59; Status DC Ciprofloxacin/ Dextrose 200 ml @ 200 mls/hr Q24H IV Last administered on 09/27 09:36; Start 09/27/17 at 09:00 Ciprofloxacin/ Dextrose 200 ml @ 200 mls/hr 1X ONCE IV Last administered on 09/26/17 11:45; Start 09/26/17 at 11:30; Stop 09/26/17 at 12:29; Status DC Amlodipine Besylate (Norvasc) 10 mg DAILY PO Last administered on 09/27/17 08 :43; Start 09/26/17 at 15:00 Aspirin (Children'S Aspirin) 81 mg DAILY PO Last administered on 09/26/17 15: 17; Start 09/26/17 at 15:00 Clonidine HCl (Catapres) 0.3 mg QID PO Last administered on 09/27/17 12:04; Start 09/26/17 at 17:00 Lisinopril (Prinivil) 40 mg BID PO Last administered on 09/27/17 08:43; Start 09/26/17 at 21:00 Hydralazine HCl (Apresoline) 100 mg TID PO Last administered on 09/27/17 08: 44; Start 09/26/17 at 14:45 Labetalol HCl (Trandate) 300 mg QID PO Last administered on 09/27/17 12:03; Start 09/26/17 at 17:00 Isosorbide Mononitrate (Imdur) 30 mg DAILY PO Last administered on 09/27/17 08:42; Start 09/26/17 at 15:00 Docusate Sodium (Colace) 200 mg BID PO Last administered on 09/27/17 08:43; Start 09/26/17 at 21:00 Vitamin B Complex/ Vitamin C (Olga-Jill) 1 tab DAILY PO Last administered on 08:43; Start 09/26/17 at 16:00 Sevelamer Carbonate (Renvela) 2.4 gm TIDWMEALS PO Last administered on 12:02; Start 09/26/17 at 17:00 Insulin Detemir (Levemir) 18 units QHS SQ Last administered on 09/26/17 21:12 ; Start 09/26/17 at 21:00 Insulin Aspart (NovoLOG) custom scale TIDWMEALS SQ Last administered on 08:48; Start 09/26/17 at 17:00; Stop 09/27/17 at 08:54; Status DC Dextrose (Dextrose 50%-Water Syringe) 12.5 gm PRN Q15MIN PRN IV SEE COMMENTS; Start 09/26/17 at 15:30; Status Cancel Ondansetron HCl (Zofran) 4 mg PRN Q6HRS PRN IV NAUSEA/VOMITING; Start at 09:00; Stop 09/28/17 at 08:59 Acetaminophen (Tylenol) 650 mg PRN Q6HRS PRN PO pain; Start 09/27/17 at 09:00 Clopidogrel Bisulfate (Plavix) 75 mg DAILY PO ; Start 09/27/17 at 10:00 Insulin Aspart (NovoLOG) 15 units TIDWMEALS SQ Last administered on 09/27/17 12:05; Start 09/27/17 at 10:00 Insulin Aspart (NovoLOG) 0-9 UNITS TIDWMEALS SQ Last administered on 12:05; Start 09/27/17 at 10:00 Dextrose (Dextrose 50%-Water Syringe) 12.5 gm PRN Q15MIN PRN IV SEE COMMENTS; Start 09/27/17 at 09:00 Active Scripts Active Promethazine Hcl 25 Mg Tablet 25 Mg PO Q6H PRN Reported Labetalol Hcl 300 Mg Tablet 1 Tab PO QID Novolog Flexpen (Insulin Aspart) 100 Unit/1 Ml Insuln.pen 15 Units SQ TIDWMEALS Levemir (Insulin Detemir) 100 Unit/1 Ml Vial 18 Unit SQ QHS Colace (Docusate Sodium) 100 Mg Capsule 200 Mg PO BID Renvela (Sevelamer Carbonate) 2.4 Gm Powd.pack 2.4 Gm PO TIDWMEALS Plavix (Clopidogrel Bisulfate) 75 Mg Tablet 75 Mg PO DAILY Hydralazine Hcl 100 Mg Tablet 100 Mg PO TID Amlodipine Besylate 10 Mg Tablet 10 Mg PO DAILY Nephro-Jill Tablet (Folic Acid/Vitamin B Comp W-C) 0.8 Mg Tablet 0.8 Mg PO DAILY Aspirin 81 Mg Tab.chew 81 Mg PO DAILY Miralax (Polyethylene Glycol 3350) 17 Gm Powd.pack 17 Gm PO DAILY Lisinopril 40 Mg Tablet 40 Mg PO BID Clonidine Hcl 0.3 Mg Tablet 0.3 Mg PO QID Allergies Allergies: Coded Allergies: erythromycin base (Verified Adverse Reaction, Intermediate, vomiting, ) ROS General: YES: Malaise, Appetite PSYCHOLOGICAL ROS: YES: Anxiety Eyes: Yes Decreased vision Respiratory: YES: Cough, Orthopnea, Shortness of breath Cardiovascular: yes Orthopnea, yes Edema Gastrointestinal: Yes Constipation Genitourinary: YES Other (ANURIA) Musculoskeletal: Yes Muscular Weakness Neurological: Yes Weakness Skin: Yes Dry Skin Physical Exam General: Alert, Oriented X3, Cooperative, No acute distress HEENT: EOMI, Mucous membr. moist/pink Lungs: Other (BASILAR RALES) Heart: Regular rate, Normal S1 Abdomen: Normal bowel sounds, No tenderness, No hepatosplenomegaly Extremities: No clubbing, Normal pulses Skin: No rashes Neuro: Normal speech, Cranial nerves 3-12 NL Psych/Mental Status: Mood NL MUSCULOSKELETAL: No deformity, No swelling Vitals VITALS Vital Signs Date Time Temp Pulse Resp B/P (MAP) Pulse Ox O2 Delivery O2 Flow Rate FiO2 09/27/17 12:04 69 136/49 09/27/17 12:00 98.0 19 99 Nasal Cannula 4.0 98.0 Labs Labs Laboratory Tests Test 09/26/17 09:40 09/26/17 10:00 09/26/17 14:00 09/26/17 18:01 O2 Saturation 89 % (92-99) Arterial Blood pH 7.34 (7.35-7.45) Arterial Blood pCO2 at Patient Temp 39 mmHg (35-46) Arterial Blood pO2 at Patient Temp 60 mmHg (65-108) Arterial Blood HCO3 21 mmol/L (21-28) Arterial Blood Base Excess -5 mmol/L (-3-3) FiO2 35.0 White Blood Count 8.2 x10^3/uL (4.0-11.0) Red Blood Count 3.97 x10^6/uL (3.50-5.40) Hemoglobin 11.6 g/dL (12.0-15.5) Hematocrit 37.2 % (36.0-47.0) Mean Corpuscular Volume 94 fL (79-100) Mean Corpuscular Hemoglobin 29 pg (25-35) Mean Corpuscular Hemoglobin Concent 31 g/dL (31-37) Red Cell Distribution Width 19.2 % (11.5-14.5) Platelet Count 240 x10^3/uL (140-400) Neutrophils (%) (Auto) 77 % (31-73) Lymphocytes (%) (Auto) 10 % (24-48) Monocytes (%) (Auto) 10 % (0-9) Eosinophils (%) (Auto) 2 % (0-3) Basophils (%) (Auto) 1 % (0-3) Neutrophils # (Auto) 6.3 x10^3uL (1.8-7.7) Lymphocytes # (Auto) 0.8 x10^3/uL (1.0-4.8) Monocytes # (Auto) 0.8 x10^3/uL (0.0-1.1) Eosinophils # (Auto) 0.2 x10^3/uL (0.0-0.7) Basophils # (Auto) 0.1 x10^3/uL (0.0-0.2) Sodium Level 142 mmol/L (136-145) Potassium Level 3.9 mmol/L (3.5-5.1) Chloride Level 105 mmol/L (98-107) Carbon Dioxide Level 25 mmol/L (21-32) Anion Gap 12 (6-14) Blood Urea Nitrogen 19 mg/dL (7-20) Creatinine 5.4 mg/dL (0.6-1.0) Estimated GFR (Cockcroft-Gault) 9.8 Glucose Level 220 mg/dL (70-99) Lactic Acid Level 1.2 mmol/L (0.4-2.0) Calcium Level 8.3 mg/dL (8.5-10.1) Magnesium Level 2.2 mg/dL (1.8-2.4) Total Bilirubin 0.7 mg/dL (0.2-1.0) Direct Bilirubin 0.2 mg/dL (0.0-0.2) Aspartate Amino Transf (AST/SGOT) 19 U/L (15-37) Alanine Aminotransferase (ALT/SGPT) 21 U/L (14-59) Alkaline Phosphatase 117 U/L (46-116) Creatine Kinase 395 U/L (26-192) Creatine Kinase MB (Mass) 2.0 ng/mL (0.0-3.6) Creatine Kinase MB Relative Index 0.5 % (0-4) Troponin I Quantitative < 0.017 ng/mL (0.000-0.055) EE-Tpa-B-Type Natriuretic Peptide 4607 pg/mL (0-124) Total Protein 7.2 g/dL (6.4-8.2) Albumin 3.8 g/dL (3.4-5.0) Thyroid Stimulating Hormone (TSH) 1.638 uIU/mL (0.358-3.74) Nasal Screen MRSA (PCR) Negative (Negative) Glucose (Fingerstick) 336 mg/dL (70-99) Test 09/26/17 20:44 09/27/17 05:00 09/27/17 07:50 09/27/17 11:49 Glucose (Fingerstick) 371 mg/dL (70-99) 383 mg/dL (70-99) 337 mg/dL (70-99) White Blood Count 8.0 x10^3/uL (4.0-11.0) Red Blood Count 3.46 x10^6/uL (3.50-5.40) Hemoglobin 10.2 g/dL (12.0-15.5) Hematocrit 32.8 % (36.0-47.0) Mean Corpuscular Volume 95 fL (79-100) Mean Corpuscular Hemoglobin 29 pg (25-35) Mean Corpuscular Hemoglobin Concent 31 g/dL (31-37) Red Cell Distribution Width 18.8 % (11.5-14.5) Platelet Count 230 x10^3/uL (140-400) Neutrophils (%) (Auto) 83 % (31-73) Lymphocytes (%) (Auto) 6 % (24-48) Monocytes (%) (Auto) 10 % (0-9) Eosinophils (%) (Auto) 0 % (0-3) Basophils (%) (Auto) 0 % (0-3) Neutrophils # (Auto) 6.7 x10^3uL (1.8-7.7) Lymphocytes # (Auto) 0.5 x10^3/uL (1.0-4.8) Monocytes # (Auto) 0.8 x10^3/uL (0.0-1.1) Eosinophils # (Auto) 0.0 x10^3/uL (0.0-0.7) Basophils # (Auto) 0.0 x10^3/uL (0.0-0.2) Laboratory Tests Test 09/26/17 14:00 09/26/17 18:01 09/26/17 20:44 09/27/17 05:00 Nasal Screen MRSA (PCR) Negative (Negative) Glucose (Fingerstick) 336 mg/dL (70-99) 371 mg/dL (70-99) White Blood Count 8.0 x10^3/uL (4.0-11.0) Red Blood Count 3.46 x10^6/uL (3.50-5.40) Hemoglobin 10.2 g/dL (12.0-15.5) Hematocrit 32.8 % (36.0-47.0) Mean Corpuscular Volume 95 fL (79-100) Mean Corpuscular Hemoglobin 29 pg (25-35) Mean Corpuscular Hemoglobin Concent 31 g/dL (31-37) Red Cell Distribution Width 18.8 % (11.5-14.5) Platelet Count 230 x10^3/uL (140-400) Neutrophils (%) (Auto) 83 % (31-73) Lymphocytes (%) (Auto) 6 % (24-48) Monocytes (%) (Auto) 10 % (0-9) Eosinophils (%) (Auto) 0 % (0-3) Basophils (%) (Auto) 0 % (0-3) Neutrophils # (Auto) 6.7 x10^3uL (1.8-7.7) Lymphocytes # (Auto) 0.5 x10^3/uL (1.0-4.8) Monocytes # (Auto) 0.8 x10^3/uL (0.0-1.1) Eosinophils # (Auto) 0.0 x10^3/uL (0.0-0.7) Basophils # (Auto) 0.0 x10^3/uL (0.0-0.2) Test 09/27/17 07:50 09/27/17 11:49 Glucose (Fingerstick) 383 mg/dL (70-99) 337 mg/dL (70-99) Assessment/Plan Assessment/Plan IMP HYPERVOLEMIA ESRD ANEMIA DM II HTN PLAN HD TODAY UF TO DW START RAQUEL GI EVAL TOMORROW LILA ALDANA MD Sep 27, 2017 12:24
--- NOTE | 2017-09-27 13:13 | PDOC ---
CARDIO Progress Notes Date and Time Date of Service 09/27/2017 Time of Evaluation 1300 Subjective Subjective: No Chest Pain, No shortness of breath, No Palpitations, Other ( feels much better today) Vitals Vitals Vital Signs Date Time Temp Pulse Resp B/P (MAP) Pulse Ox O2 Delivery O2 Flow Rate FiO2 09/27/17 12:04 69 136/49 09/27/17 12:00 98.0 19 99 Nasal Cannula 4.0 98.0 Weight Weight [ ] Input and Output Intake and Output Intake and Output 09/27/17 07:00 Intake Total 1271 ml Balance 1271 ml Intake Oral 702 ml IV Total 569 ml Laboratory Labs Laboratory Tests Test 09/26/17 14:00 09/26/17 18:01 09/26/17 20:44 09/27/17 05:00 Nasal Screen MRSA (PCR) Negative (Negative) Glucose (Fingerstick) 336 mg/dL (70-99) 371 mg/dL (70-99) White Blood Count 8.0 x10^3/uL (4.0-11.0) Red Blood Count 3.46 x10^6/uL (3.50-5.40) Hemoglobin 10.2 g/dL (12.0-15.5) Hematocrit 32.8 % (36.0-47.0) Mean Corpuscular Volume 95 fL (79-100) Mean Corpuscular Hemoglobin 29 pg (25-35) Mean Corpuscular Hemoglobin Concent 31 g/dL (31-37) Red Cell Distribution Width 18.8 % (11.5-14.5) Platelet Count 230 x10^3/uL (140-400) Neutrophils (%) (Auto) 83 % (31-73) Lymphocytes (%) (Auto) 6 % (24-48) Monocytes (%) (Auto) 10 % (0-9) Eosinophils (%) (Auto) 0 % (0-3) Basophils (%) (Auto) 0 % (0-3) Neutrophils # (Auto) 6.7 x10^3uL (1.8-7.7) Lymphocytes # (Auto) 0.5 x10^3/uL (1.0-4.8) Monocytes # (Auto) 0.8 x10^3/uL (0.0-1.1) Eosinophils # (Auto) 0.0 x10^3/uL (0.0-0.7) Basophils # (Auto) 0.0 x10^3/uL (0.0-0.2) Test 09/27/17 07:50 09/27/17 11:49 Glucose (Fingerstick) 383 mg/dL (70-99) 337 mg/dL (70-99) Microbiology Micro Microbiology 09/26/17 Blood Culture - Preliminary, Resulted NO GROWTH AFTER 1 DAY Physical Exam HEENT: Neck Supple W Full Motion Chest: Symmetric LUNGS: Other (diminished baes) Heart: S1S2, RRR (SR) Abdomen: Soft N/T Extremities: Other (2+ bilateral LE pitting edema) Neurology: alert, oriented, follow commands Assessment Assessment 1. Malignant HTN: Much better today. responded well with imdur addition. 2. Acute on chronic diastolic CHF: mainly from fluid overload in relation to bowel prep. Compensated 3. ESRD 4. Morbid obesity 5. Suspecting RONAK with likely COPD as well 6. Tobaccoism Recommendations 1. Fluid off loading per HD 2. Continue with current BP regimen with addition of imdur 3. Tentative colonoscopy tomorrow per staff. Resume plavix once cleared by GI. 5. Smoking cessation, will need outpt sleep study. 6. Continue with secondary prevention, follow up in office as scheduled. DES SAEED APRN Sep 27, 2017 13:13
[2017-09-27] MEDS ORDERED: IV NORMAL SALINE 1000ML BAG 1,000 ML IV PRN ×2 (16:27)
--- NOTE | 2017-09-27 16:29 | RAD ---
Indication: Short of air. Abnormal chest radiograph. Technique: Axial images and coronal and sagittal reformatted images are provided. Comparison chest radiograph is from yesterday. One or more of the following individualized dose reduction techniques were utilized for this examination: 1. Automated exposure control 2. Adjustment of the mA and/or kV according to patient size 3. Use of iterative reconstruction technique Findings: There is right lower lobe airspace disease with air bronchograms and small effusion. There is minimal atelectasis or pneumonia in the left lung base as well. There is a trace left pleural effusion. There is no worrisome pulmonary nodule. Central airways are patent. There is no definite hilar or mediastinal adenopathy. There is minimal atheromatous disease in the thoracic aorta. There are degenerative changes in the spine. There is no adrenal mass. Impression: Right lower lobe consolidation with small effusion favored to represent pneumonia. Left basilar atelectasis or minimal pneumonia also present. No findings to suggest CHF.
[2017-09-27] MEDS ORDERED: DIALYSIS PATIENT. MC PRN (16:30)
[2017-09-27] MEDS ORDERED: ALBUMIN HUMAN 25% 200 ML IV PRN (16:30)
[2017-09-27] MEDS ORDERED: LIDOCAINE 1% PF 2 ML VIAL. ONE ×2 (18:30→18:31)
[2017-09-27 20:27] LABS: ALBUMIN 3.1 g/dL (3.4-5.0); ALBUMIN/GLOBULIN RATIO 1.2 (1.0-1.7); CALCIUM 7.6 mg/dL (8.5-10.1); CREATININE 7.1 mg/dL (0.6-1.0); GFR 7.2; POTASSIUM 4.1 mmol/L (3.5-5.1); TOTAL BILIRUBIN 0.5 mg/dL (0.2-1.0); TOTAL PROTEIN 5.6 g/dL (6.4-8.2)
[2017-09-27] MEDS ORDERED: DARBEPOETIN ALFA 60 MCG/0.3 ML DISP.SYRIN. SQ SCH (21:00)
[2017-09-27] MEDS: INSULIN DETEMIR 300 UNITS/3 ML INSULN.PEN. SQ SCH (21:00)
[2017-09-27] MEDS: LACTOBACILLUS RHAMNOSUS GG 1 CAPSULE. PO SCH (22:47)
[2017-09-28] MEDS: LABETALOL HCL 100 MG TABLET. PO SCH ×3 (00:11→14:01)
[2017-09-28 03:00] VITALS: BP 155/50
[2017-09-28 07:00] VITALS: BP 167/45
[2017-09-28] MEDS: INSULIN ASPART 300 UNITS/3 ML INSULN.PEN SQ SCH ×4 (08:00→12:00)
[2017-09-28] MEDS: SEVELAMER CARBONATE 2.4 GM PACKET. PO SCH ×2 (08:00→12:00)
[2017-09-28] MEDS: FOLIC/VIT B COMP W-C (RENAL) TABLET. PO SCH (09:00)
[2017-09-28] MEDS: cloNIDine HCL 0.3 MG TABLET PO SCH ×2 (09:00→14:02)
--- NOTE | 2017-09-28 09:23 | HP ---
ADMIT DATE: 09/26/2017 CHIEF COMPLAINT: Acute hypoxic respiratory failure. HISTORY OF PRESENT ILLNESS: The patient is a 57-year-old woman with CHF as well as end-stage renal disease who presented to the Emergency Room with acute onset shortness of breath. She relates that she was scheduled to undergo colonoscopy in anticipation of clearance for renal transplant. She was given a colon prep with a gallon of GoLYTELY and in anticipation of the extra fluid intake, had been dialyzed for an additional 2 liters yesterday. However, when she awoke this morning, she was acutely short of breath and presented to the Emergency Room where she had a right basilar infiltrate suggesting pulmonary edema. She was therefore admitted for further evaluation. On further questioning, she denies any fevers, chills, any cough, upper respiratory symptoms or a sick contact. She denies any chest pain. She does have a history of COPD, smoking induced and she is still smoking a few cigarettes here and there. PAST MEDICAL HISTORY: CHF, end-stage renal disease, diabetes type 2, history of DVT, GERD, hypertension, status post . FAMILY HISTORY: Diabetes, hypertension, renal disease. SOCIAL HISTORY: Smokes less than a pack a day. No tobacco or alcohol use. ALLERGIES: ERYTHROMYCIN. MEDICATIONS: MAR reconciled with home medications. REVIEW OF SYSTEMS: Positive as per HPI. Rest of organ systems were reviewed and found negative. PHYSICAL EXAMINATION: VITAL SIGNS: Show a blood pressure of 160/70. Of note, at admission, it was measured at 233 and 96, heart rate at 72, respiratory rate at 20. She is afebrile, currently satting 94% on Venturi mask. GENERAL: This is a morbidly obese 57-year-old woman, awake, alert, in no acute distress. HEENT: Shows no scleral icterus. NECK: Supple. LUNGS: Clear. HEART: Regular rate and rhythm. ABDOMEN: Has positive bowel sounds, soft, nontender. EXTREMITIES: Show 1+ edema. SKIN: Warm, soft and dry. NEUROLOGIC: She appears grossly intact. LABORATORY DATA: CBC with a WBC of 8.2, hemoglobin 11.6, platelets of 240. Chemistries with a BUN and creatinine of 19 and 5.4. Normal electrolytes, glucose at 220. Normal LFTs. ProBNP 4607, troponin is negative. IMAGING: Chest x-ray showing cardiomegaly and mild right basilar infiltrate suggesting mild pulmonary edema versus pneumonia. ASSESSMENT AND PLAN: The patient is a 57-year-old woman presenting with acute onset shortness of breath, question flash pulmonary edema due to a colon prep versus other etiologies. She is now much improved. She has received steroids for a potential COPD as well as IV Lasix for fluid overload. We will obtain a CT of the chest to further elucidate. Given her stability at this time, urgent dialysis is not indicated. We will plan for getting this done tomorrow and Nephrology will be consulted. Cardiology has been called by the Emergency Room already, appreciate input. Her blood pressure at admission was accelerated, now appears to be more at the patient's baseline, which is still undesirably high. May need some adjustment in her medications. Echocardiogram would be indicated to elucidate CHF further. Details are unknown at this time. Diabetes mellitus typically is well controlled. This morning somewhat unruly, most likely secondary to alternations in her insulin regimen due to anticipated colonoscopy. We will continue home base Levemir and add a custom sliding scale. Discussed smoking and cessation as soon as possible. The patient is aware of consequences. Unfortunately, she could not undergo colonoscopy this morning due to high blood pressure and shortness of breath. We will discuss with Dr. Diez as she could potentially undergo the procedure on Sunday, with prep here in the hospital under more controlled circumstances. We will discuss with Cardiology as well. KEYUR TAMEZ MD DR: NEO/nts JOB#: [id number] / [id number] PETE Barnard APRN MTDOdalis
--- NOTE | 2017-09-28 09:38 | PDOC ---
PROGRESS NOTES Chief Complaint Chief Complaint Acute hypoxic respir failure ASSESSMENT AND PLAN: 1. Flash pulm edema: resolved 2. CHF exacerbation: diastolic. improved with UF at HD 3. COPD/suspected RONAK: at baseline; nebs, suppl O2 PRN 4. HTN urgency: improved, BP still high on max clonidine/norvasc; labetalol, hydralazine. adjustment as per nephrology 5. ESRD: on HD on // 6. DM2: well controlled on current regimen 7. Anemia: 2/2 ESRD. on EPO and iron with HD 8. Colonoscopy: scheduled this AM; part of renal transplant W/U 9. Tobaccoism: cessation urged 10. Dispo: home later today if no respir sx History of Present Illness History of Present Illness post colonoscopy, no pain, no SOB or CP Vitals Vitals Vital Signs Date Time Temp Pulse Resp B/P (MAP) Pulse Ox O2 Delivery O2 Flow Rate FiO2 09/28/17 07:00 97.7 67 18 167/45 (85) 98 Nasal Cannula 4.0 97.7 Physical Exam General: Alert, Oriented X3, Cooperative, No acute distress Heart: Regular rate Lungs: Clear Abdomen: Normal bowel sounds, No tenderness Extremities: No clubbing, No edema Skin: No rashes Labs LABS Laboratory Tests Test 09/27/17 11:49 09/27/17 16:45 09/27/17 19:00 09/27/17 22:21 Glucose (Fingerstick) 337 mg/dL (70-99) 106 mg/dL (70-99) 148 mg/dL (70-99) Sodium Level 137 mmol/L (136-145) Potassium Level 4.1 mmol/L (3.5-5.1) Chloride Level 103 mmol/L (98-107) Carbon Dioxide Level 23 mmol/L (21-32) Anion Gap 11 (6-14) Blood Urea Nitrogen 39 mg/dL (7-20) Creatinine 7.1 mg/dL (0.6-1.0) Estimated GFR (Cockcroft-Gault) 7.2 BUN/Creatinine Ratio 5 (6-20) Glucose Level 119 mg/dL (70-99) Calcium Level 7.6 mg/dL (8.5-10.1) Total Bilirubin 0.5 mg/dL (0.2-1.0) Aspartate Amino Transf (AST/SGOT) 16 U/L (15-37) Alanine Aminotransferase (ALT/SGPT) 15 U/L (14-59) Alkaline Phosphatase 91 U/L (46-116) Total Protein 5.6 g/dL (6.4-8.2) Albumin 3.1 g/dL (3.4-5.0) Albumin/Globulin Ratio 1.2 (1.0-1.7) 25-Hydroxy Vitamin D Total 6.5 ng/mL (30-100) Test 09/28/17 07:48 Glucose (Fingerstick) 135 mg/dL (70-99) KEYUR TAMEZ MD Sep 28, 2017 09:38
[2017-09-28] MEDS ORDERED: IV NORMAL SALINE 1000ML BAG 1,000 ML IV SCH (10:45)
[2017-09-28] MEDS ORDERED: IV RINGERS,LACTATED 1000ML 1,000 ML IV SCH (10:48)
[2017-09-28 11:00] VITALS: BP 179/53
[2017-09-28] MEDS ORDERED: fentaNYL PF VIAL 100 MCG/2 ML VIAL IV PRN ×2 (11:00)
[2017-09-28] MEDS ORDERED: PROPOFOL 20 ML IV ONE (11:00)
[2017-09-28] MEDS ORDERED: ONDANSETRON PF 4 MG/2 ML VIAL. IV PRN (11:00)
[2017-09-28] MEDS ORDERED: MORPHINE SULFATE 2 MG/ML DISP.SYRIN. IV PRN (11:00)
[2017-09-28] MEDS ORDERED: PROCHLORPERAZINE 10 MG/2 ML VIAL. IV PRN (11:00)
[2017-09-28] MEDS ORDERED: LIDOCAINE 1% PF 2 ML VIAL. ID PRN (11:00)
[2017-09-28] MEDS ORDERED: HYDROmorphone 2 MG/ML VIAL IV PRN (11:00)
[2017-09-28] MEDS ORDERED: LIDOCAINE 2% PF Vial for OR 5 ML VIAL. ONE (11:01)
--- NOTE | 2017-09-28 11:15 | PDOC ---
Renal-Progress Notes Subjective Notes Notes NONE, BETTER History of Present Illness Hx of present illness STABLE Vitals Vitals Vital Signs Date Time Temp Pulse Resp B/P (MAP) Pulse Ox O2 Delivery O2 Flow Rate FiO2 09/28/17 10:37 Nasal Cannula 4.0 09/28/17 10:37 97.7 74 18 94 97.7 09/28/17 07:00 167/45 (85) Weight Weight [ ] I.O. Intake and Output Intake and Output 09/28/17 06:59 Intake Total 1940 ml Output Total 0 ml Balance 1940 ml Intake Oral 1940 ml Output Urine Total 0 ml # Voids 1 Labs Labs Laboratory Tests Test 09/27/17 11:49 09/27/17 16:45 09/27/17 19:00 09/27/17 22:21 Glucose (Fingerstick) 337 mg/dL (70-99) 106 mg/dL (70-99) 148 mg/dL (70-99) Sodium Level 137 mmol/L (136-145) Potassium Level 4.1 mmol/L (3.5-5.1) Chloride Level 103 mmol/L (98-107) Carbon Dioxide Level 23 mmol/L (21-32) Anion Gap 11 (6-14) Blood Urea Nitrogen 39 mg/dL (7-20) Creatinine 7.1 mg/dL (0.6-1.0) Estimated GFR (Cockcroft-Gault) 7.2 BUN/Creatinine Ratio 5 (6-20) Glucose Level 119 mg/dL (70-99) Calcium Level 7.6 mg/dL (8.5-10.1) Total Bilirubin 0.5 mg/dL (0.2-1.0) Aspartate Amino Transf (AST/SGOT) 16 U/L (15-37) Alanine Aminotransferase (ALT/SGPT) 15 U/L (14-59) Alkaline Phosphatase 91 U/L (46-116) Total Protein 5.6 g/dL (6.4-8.2) Albumin 3.1 g/dL (3.4-5.0) Albumin/Globulin Ratio 1.2 (1.0-1.7) 25-Hydroxy Vitamin D Total 6.5 ng/mL (30-100) Test 09/28/17 07:48 Glucose (Fingerstick) 135 mg/dL (70-99) Micro Micro Microbiology 09/26/17 Blood Culture - Preliminary, Resulted NO GROWTH AFTER 2 DAYS Review of Systems Constitutional: yes: weakness, alert Ears/Nose/Throat: Yes: no symptom reported Pulmonary: Yes dyspnea Cardiovascular: Yes no symptom reported Gastrointestional: Yes: diarrhea Genitourinary: Yes: no symptom reported Musculoskeletal: Yes: muscle stiffness Skin: Yes no symptom reported Psychiatric/Neurological: Yes: no symptom reported Physical Exam General Appearance: no apparent distress Skin: warm Respiratory: bilateral CTA Heart: S1S2 Abdomen: soft, bowel sounds present Genitourinary: bladder flat Neurology: alert, oriented, follow commands Musculoskeletal: Other Assessment Assessment IMP ESRD ANEMIA HYPERVOLEMIA HTN ANEMIA DM II RESP FAILURE-RESOLVED PLAN HD TOMORROW COLONOSCOPY TODAY LILA ALDANA MD Sep 28, 2017 11:15
--- NOTE | 2017-09-28 11:23 | PDOC4 ---
Operative Note Operative Note Colonoscopy Meds per anesthesia Pre-op dx crc screening Post-op dx internal hemorrhoids poor prep Plan surveillance exam in 10 years resume diet GIOVANNI NAM MD Sep 28, 2017 11:23
[2017-09-28] MEDS ORDERED: ISOS30TA4 PO (12:33)
[2017-09-28] MEDS: CIPROFLOXACIN 400MG PREMIX 200 ML IV SCH (14:00)
[2017-09-28] MEDS: CLOPIDOGREL BISULFATE 75 MG TABLET PO SCH (14:00)
[2017-09-28] MEDS: DOCUSATE SODIUM 100 MG CAPSULE. PO SCH (14:02)
[2017-09-28] MEDS: LACTOBACILLUS RHAMNOSUS GG 1 CAPSULE. PO SCH (14:03)
[2017-09-28] MEDS: amLODIPine BESYLATE 10 MG TABLET PO SCH (14:03)
[2017-09-28] MEDS: LISINOPRIL 40 MG TABLET. PO SCH (14:04)
[2017-09-28] MEDS: ISOSORBIDE MONONITRATE ER 30 MG TAB.ER.24H PO SCH (14:04)
[2017-09-28] MEDS: ASPIRIN CHEWABLE 81 MG TABLET. PO SCH (14:04)
[2017-09-28 15:00] VITALS: BP 139/60
--- NOTE | 2017-09-30 15:14 | DS ---
DATE OF DISCHARGE: 09/28/2017 CHIEF COMPLAINT: Acute hypoxic respiratory failure. HOSPITAL COURSE: The patient is a 57-year-old woman with COPD, CHF as well as end-stage renal disease who presented to the hospital with acute hypoxic respiratory failure, which was attributed to CHF exacerbation/flash pulmonary edema after undergoing a colon prep the night before. She recovered fairly quickly with IV Lasix and respiratory support on BiPAP. Cardiology, Pulmonology and Renal services were consulted. In discussion with her glass technologist, Dr. Diez, plans were made for undergoing a colonoscopy on 09/28/2017 while prepping in the hospital under controlled circumstances. The patient tolerated the procedure well. No significant findings were made. She was discharged on the evening of 09/28/2017 without any further incident. PHYSICAL EXAMINATION: VITAL SIGNS: Blood pressure of 167/45, heart rate of 67, respiratory rate at 18. She is afebrile. GENERAL: This is a 57-year-old morbidly obese woman, alert and oriented, no acute distress. LUNGS: Clear. HEART: Regular rate and rhythm. ABDOMEN: Positive bowel sounds. EXTREMITIES: Show no edema. DISCHARGE DIAGNOSES: Flash pulmonary edema, congestive heart failure exacerbation, end-stage renal disease. DISCHARGE DISPOSITION: To home. DISCHARGE CONDITION: Improved. DISCHARGE INSTRUCTIONS: The patient will follow up with hemodialysis as previously arranged. DISCHARGE MEDICATIONS: Please refer to MAR. KEYUR TAMEZ MD DR: NEO/nts JOB#: [id number] / [id number]
== END 2017-09-28 16:59 | disposition home or self-care (01) | DRG 291 ==
LOC: ER 08:57 → 1 WEST ICU 10:50 → 5 SOUTH 09-27 15:35
PROVIDERS: ADMIT Internal Medicine Hematology & Oncology; ATTEND Internal Medicine Hematology & Oncology
PROC: 5A09357 Assistance with Respiratory Ventilation, Less than 24 Consecutive Hours, Continuous Positive Airway Pressure (ICD-10-PCS; 2017-09-26)
PROC: 5A1D70Z Performance of Urinary Filtration, Intermittent, Less than 6 Hours Per Day (ICD-10-PCS; 2017-09-27)
PROC: 0DJD8ZZ Inspection of Lower Intestinal Tract, Via Natural or Artificial Opening Endoscopic (ICD-10-PCS; principal; 2017-09-28 11:00)
DX: I13.2 Hypertensive heart and chronic kidney disease with heart failure and with stage 5 chronic kidney disease, or end stage renal disease (principal); I50.33 Acute on chronic diastolic (congestive) heart failure; J96.01 Acute respiratory failure with hypoxia; N18.6 End stage renal disease; I16.1 Hypertensive emergency; Z68.42 Body mass index [BMI] 45.0-49.9, adult; I10 Essential (primary) hypertension; D63.1 Anemia in chronic kidney disease; E11.22 Type 2 diabetes mellitus with diabetic chronic kidney disease; E66.01 Morbid (severe) obesity due to excess calories; E78.5 Hyperlipidemia, unspecified; F17.210 Nicotine dependence, cigarettes, uncomplicated; G47.33 Obstructive sleep apnea (adult) (pediatric); H54.7 Unspecified visual loss; J44.9 Chronic obstructive pulmonary disease, unspecified; E21.3 Hyperparathyroidism, unspecified; M19.90 Unspecified osteoarthritis, unspecified site; K21.9 Gastro-esophageal reflux disease without esophagitis; K64.8 Other hemorrhoids; Z79.4 Long term (current) use of insulin; Z82.49 Family history of ischemic heart disease and other diseases of the circulatory system; Z83.3 Family history of diabetes mellitus; Z84.1 Family history of disorders of kidney and ureter; Z86.718 Personal history of other venous thrombosis and embolism; Z99.2 Dependence on renal dialysis
CPT/HCPCS: 36415; 36600; 71010; 71250; 80048; 80053; 80076; 82306; 82553; 82805; 82962; 83605; 83735; 83880; 84443; 84484; 85025; 87040; 87641; 93005; 94644; 94660; 96374; 96375; J0744; J0881; J1815; J1940; J2704; J2930; J7030; J7050; J7613; J7620; 99291-25; J2001

== ENCOUNTER 2018-11-26 04:45 | Emergency (ER) | payer MEDICARE, OTHER ==
[~2018-11-26 04:45] MED LIST changes: -AMLO10TA2 PO; +AMLO10TA8 PO; +ISOS30TA4 PO; -LABE300T PO; +LABE300T2 PO; +LISI-130 PO; -LISI40TA PO
== END 2018-11-26 05:00 | disposition left against medical advice (07) ==
LOC: ER 04:45
DX: T82.838A Hemorrhage due to vascular prosthetic devices, implants and grafts, initial encounter (principal); Z53.21 Procedure and treatment not carried out due to patient leaving prior to being seen by health care provider; Y82.8 Other medical devices associated with adverse incidents; Y92.89 Other specified places as the place of occurrence of the external cause

== ENCOUNTER 2018-11-26 22:01 | Emergency (ER) | payer MEDICARE ==
[~2018-11-26] VITALS: Ht 154.9 cm; Wt 99.8 kg
[2018-11-26 22:30] VITALS: BP 174/73
[2018-11-26 23:04] LABS: BASO % 1 % (0-3); EOS # 0.1 x10^3/uL (0.0-0.7); EOS % 1 % (0-3); HEMATOCRIT 35.1 % (36.0-47.0); HEMOGLOBIN 11.1 g/dL (12.0-15.5); LYMPH # 0.6 x10^3/uL (1.0-4.8); LYMPH % 10 % (24-48); MEAN CORPUSCULAR HEMOGLOBIN 31 pg (25-35); MEAN CORPUSCULAR HGB CONC 32 g/dL (31-37); MEAN CORPUSCULAR VOLUME 99 fL (79-100); MONO # 0.8 x10^3/uL (0.0-1.1); MONO % 12 % (0-9); NEUT # 4.9 x10^3uL (1.8-7.7); NEUT % 77 % (31-73); PLATELET COUNT 181 x10^3/uL (140-400); RED BLOOD COUNT 3.54 x10^6/uL (3.50-5.40); RED CELL DISTRIBUTION WIDTH 15.2 % (11.5-14.5); WHITE BLOOD COUNT 6.3 x10^3/uL (4.0-11.0)
[2018-11-26 23:14] LABS: CALCIUM 8.3 mg/dL (8.5-10.1); GFR 6.2
--- NOTE | 2018-11-26 23:15 | PHYS DOC ---
Past Medical History Past Medical History: Diabetes-Type II, DVT, GERD, Hypertension, Renal Failure , Other Additional Past Medical Histor: HEMODIAYLSIS Past Surgical History: , Other Additional Past Surgical Histo: dialysis shunt right upper arm-removed, Dialysis shunt L upper arm, Vascath Alcohol Use: None Drug Use: None Adult General Chief Complaint Chief Complaint: MULTIPLE COMPLAINTS HPI HPI Patient is a 58 year old female who presents with bleeding over L arm AV fistula site. Patient has been using since dialysis earlier this afternoon after keep completing full dialysis session. Patient reports some achiness. Denies dizziness lightheadedness. Patient with blood soaked bandage. Currently on Plavix. No other symptoms or complaints.[] Review of Systems Review of Systems ROS as per HPI All other systems were reviewed and found to be within normal limits, except as documented in this note. Allergies Allergies Allergies Coded Allergies Type Severity Reaction Last Updated Verified No Known Medication Allergies Allergy Unknown 09/27/17 Yes erythromycin base Adverse Reaction Intermediate vomiting 09/26/17 Yes Physical Exam Physical Exam Constitutional: Well developed, well nourished, no acute distress, non-toxic appearance. [] HENT: Normocephalic, atraumatic, bilateral external ears normal, oropharynx moist, no oral exudates, nose normal. [] Eyes: PERRLA, EOMI, conjunctiva normal, no discharge. [] Extremities: Left arm, AV fistula blood soaked bandage, no active bleeding. [] Neurologic: Alert and oriented X 3, normal motor function, normal sensory function, no focal deficits noted. [] Psychologic: Affect normal, judgement normal, mood normal. [] Current Patient Data Vital Signs Vital Signs Date Time Temp Pulse Resp B/P (MAP) Pulse Ox O2 Delivery O2 Flow Rate FiO2 11/26/18 22:30 99.1 78 20 174/73 (106) 95 Room Air 99.1 Lab Values Laboratory Tests Test 11/26/18 23:00 White Blood Count 6.3 x10^3/uL (4.0-11.0) Red Blood Count 3.54 x10^6/uL (3.50-5.40) Hemoglobin 11.1 g/dL (12.0-15.5) L Hematocrit 35.1 % (36.0-47.0) L Mean Corpuscular Volume 99 fL (79-100) Mean Corpuscular Hemoglobin 31 pg (25-35) Mean Corpuscular Hemoglobin Concent 32 g/dL (31-37) Red Cell Distribution Width 15.2 % (11.5-14.5) H Platelet Count 181 x10^3/uL (140-400) Neutrophils (%) (Auto) 77 % (31-73) H Lymphocytes (%) (Auto) 10 % (24-48) L Monocytes (%) (Auto) 12 % (0-9) H Eosinophils (%) (Auto) 1 % (0-3) Basophils (%) (Auto) 1 % (0-3) Neutrophils # (Auto) 4.9 x10^3uL (1.8-7.7) Lymphocytes # (Auto) 0.6 x10^3/uL (1.0-4.8) L Monocytes # (Auto) 0.8 x10^3/uL (0.0-1.1) Eosinophils # (Auto) 0.1 x10^3/uL (0.0-0.7) Basophils # (Auto) 0.0 x10^3/uL (0.0-0.2) Laboratory Tests 11/26/18 23:00 EKG EKG [] Radiology/Procedures Radiology/Procedures [] Course & Med Decision Making Course & Med Decision Making Pertinent Labs and Imaging studies reviewed. (See chart for details) [] Dragon Disclaimer Dragon Disclaimer This electronic medical record was generated, in whole or in part, using a voice recognition dictation system. Departure Departure Referrals: PETE TILLMAN APRN (PCP) MELLO MARAVILLA DO Nov 26, 2018 23:15
== END 2018-11-27 00:39 | disposition home or self-care (01) ==
LOC: ER 22:01
DX: T82.838A Hemorrhage due to vascular prosthetic devices, implants and grafts, initial encounter (principal); K21.9 Gastro-esophageal reflux disease without esophagitis; I12.9 Hypertensive chronic kidney disease with stage 1 through stage 4 chronic kidney disease, or unspecified chronic kidney disease; E11.22 Type 2 diabetes mellitus with diabetic chronic kidney disease; N18.9 Chronic kidney disease, unspecified; Z88.1 Allergy status to other antibiotic agents; Y84.8 Other medical procedures as the cause of abnormal reaction of the patient, or of later complication, without mention of misadventure at the time of the procedure; Y92.89 Other specified places as the place of occurrence of the external cause
CPT/HCPCS: 36415; 80048; 85025; 99283

== ENCOUNTER → 2019-09-23 | Outpatient (CLI) | payer MEDICARE ==
[2019-09-23 12:27] LABS: BASO # 0.1 x10^3/uL (0.0-0.2); BASO % 3 % (0-3); EOS # 0.1 x10^3/uL (0.0-0.7); EOS % 5 % (0-3); HEMATOCRIT 34.9 % (36.0-47.0); HEMOGLOBIN 11.5 g/dL (12.0-15.5); LYMPH # 0.4 x10^3/uL (1.0-4.8); LYMPH % 23 % (24-48); MEAN CORPUSCULAR HEMOGLOBIN 31 pg (25-35); MEAN CORPUSCULAR HGB CONC 33 g/dL (31-37); MEAN CORPUSCULAR VOLUME 95 fL (79-100); MONO # 0.5 x10^3/uL (0.0-1.1); MONO % 27 % (0-9); NEUT # 0.7 x10^3/uL (1.8-7.7); NEUT % 42 % (31-73); PLATELET COUNT 214 x10^3/uL (140-400); RED CELL DISTRIBUTION WIDTH 17.3 % (11.5-14.5)
[2019-09-23 12:38] LABS: BILIRUBIN,URINE NEGATIVE (NEG); CLARITY,URINE CLEAR; COLOR,URINE YELLOW; NITRITE,URINE NEGATIVE (NEG); PROTEIN,URINE NEGATIVE (NEG-TRACE); UROBILINOGEN,URINE 0.2 mg/dL (0.2 mg/dL)
[2019-09-23 12:57] LABS: ALBUMIN 3.6 g/dL (3.4-5.0); CALCIUM 8.7 mg/dL (8.5-10.1); CREATININE 1.4 mg/dL (0.6-1.0); GFR 46.3; MAGNESIUM 1.9 mg/dL (1.8-2.4); PHOSPHORUS 4.7 mg/dL (2.6-4.7); POTASSIUM 4.7 mmol/L (3.5-5.1)
[2019-09-23 13:11] LABS: BACTERIA,URINE FEW /HPF (0-FEW); RBC,URINE OCC /HPF (0-2); SQUAMOUS EPITHELIAL CELL,UR OCC /LPF
[2019-09-23 13:23] LABS: WHITE BLOOD COUNT 1.7 x10^3/uL (4.0-11.0)
[2019-09-23 13:36] LABS: % LYMPHS 28 % (24-48); % SEGS 52 % (35-66)
[2019-09-23 13:37] LABS: % BASOS 3 % (0-3); % EOS 5 % (0-5); % MONOS 12 % (0-10)
[2019-09-23 13:38] LABS: ANISOCYTOSIS SLIGHT; BIZZARE CELLS OCC; PLT ESTIMATE ADEQUATE (ADEQUATE)
== END ==
LOC: SPEC 12:04
DX: I13.2 Hypertensive heart and chronic kidney disease with heart failure and with stage 5 chronic kidney disease, or end stage renal disease (principal); I50.9 Heart failure, unspecified; E11.22 Type 2 diabetes mellitus with diabetic chronic kidney disease; N18.6 End stage renal disease; F17.200 Nicotine dependence, unspecified, uncomplicated; Z94.0 Kidney transplant status
CPT/HCPCS: 36415; 80069; 80197; 81001; 83735; 84156; 85007; 85025; 87086; 87497; 87799

== ENCOUNTER → 2019-10-01 | Outpatient (CLI) | payer MEDICARE ==
[2019-10-01 13:09] LABS: BASO % 1 % (0-3); EOS # 0.1 x10^3/uL (0.0-0.7); EOS % 4 % (0-3); HEMATOCRIT 35.6 % (36.0-47.0); HEMOGLOBIN 11.5 g/dL (12.0-15.5); LYMPH # 0.3 x10^3/uL (1.0-4.8); LYMPH % 15 % (24-48); MEAN CORPUSCULAR HEMOGLOBIN 31 pg (25-35); MEAN CORPUSCULAR HGB CONC 32 g/dL (31-37); MEAN CORPUSCULAR VOLUME 95 fL (79-100); MONO # 0.3 x10^3/uL (0.0-1.1); MONO % 14 % (0-9); NEUT # 1.4 x10^3/uL (1.8-7.7); NEUT % 66 % (31-73); PLATELET COUNT 198 x10^3/uL (140-400); RED BLOOD COUNT 3.76 x10^6/uL (3.50-5.40); RED CELL DISTRIBUTION WIDTH 16.3 % (11.5-14.5); WHITE BLOOD COUNT 2.1 x10^3/uL (4.0-11.0)
[2019-10-01 13:33] LABS: ALBUMIN 3.6 g/dL (3.4-5.0); CALCIUM 8.6 mg/dL (8.5-10.1); CREATININE 1.3 mg/dL (0.6-1.0); GFR 50.4; PHOSPHORUS 4.6 mg/dL (2.6-4.7); POTASSIUM 4.5 mmol/L (3.5-5.1)
[2019-10-01 14:25] LABS: % ATYL 1 % (0-0); % BANDS 13 % (0-9); % BASOS 2 % (0-3); % EOS 3 % (0-5); % LYMPHS 14 % (24-48); % MONOS 10 % (0-10); % SEGS 57 % (35-66)
[2019-10-01 14:27] LABS: ANISOCYTOSIS SLIGHT; HYPOCHROMIA SLIGHT; PLT ESTIMATE ADEQUATE (ADEQUATE); SCHISTOCYTES OCC; SPHEROCYTES OCC
== END | disposition home or self-care (01) ==
LOC: SPEC 12:52
PROVIDERS: ATTEND Internal Medicine
DX: Z48.22 Encounter for aftercare following kidney transplant (principal); Z94.0 Kidney transplant status
CPT/HCPCS: 36415; 80069; 80197; 85007; 85025

== ENCOUNTER → 2019-10-07 | Outpatient (CLI) | payer MEDICARE ==
[2019-10-07 11:08] LABS: BASO # 0.1 x10^3/uL (0.0-0.2); BASO % 3 % (0-3); EOS # 0.1 x10^3/uL (0.0-0.7); EOS % 7 % (0-3); HEMATOCRIT 35.2 % (36.0-47.0); HEMOGLOBIN 11.3 g/dL (12.0-15.5); LYMPH # 0.4 x10^3/uL (1.0-4.8); LYMPH % 22 % (24-48); MEAN CORPUSCULAR HEMOGLOBIN 30 pg (25-35); MEAN CORPUSCULAR HGB CONC 32 g/dL (31-37); MEAN CORPUSCULAR VOLUME 94 fL (79-100); MONO # 0.5 x10^3/uL (0.0-1.1); MONO % 26 % (0-9); NEUT # 0.7 x10^3/uL (1.8-7.7); NEUT % 41 % (31-73); PLATELET COUNT 210 x10^3/uL (140-400); RED BLOOD COUNT 3.73 x10^6/uL (3.50-5.40); RED CELL DISTRIBUTION WIDTH 16.5 % (11.5-14.5)
[2019-10-07 11:17] LABS: WHITE BLOOD COUNT 1.8 x10^3/uL (4.0-11.0)
[2019-10-07 11:36] LABS: ALBUMIN 3.5 g/dL (3.4-5.0); CALCIUM 8.7 mg/dL (8.5-10.1); CREATININE 1.2 mg/dL (0.6-1.0); GFR 55.3; MAGNESIUM 1.7 mg/dL (1.8-2.4); PHOSPHORUS 4.7 mg/dL (2.6-4.7)
[2019-10-07 11:57] LABS: % BANDS 6 % (0-9); % EOS 8 % (0-5); % LYMPHS 26 % (24-48); % MONOS 12 % (0-10); % SEGS 48 % (35-66); PLT ESTIMATE ADEQUATE (ADEQUATE)
[2019-10-10 11:10] LABS: HCV ULTRA QUANT PCR HCV Not Detected IU/mL (.)
== END | disposition home or self-care (01) ==
LOC: SPEC 10:30
PROVIDERS: ATTEND Internal Medicine
DX: Z48.22 Encounter for aftercare following kidney transplant (principal); Z94.0 Kidney transplant status; Z79.899 Other long term (current) drug therapy
CPT/HCPCS: 36415; 80069; 80197; 83735; 85007; 85025; 86703; 86803; 87497; 87521; 87536; 87799

== ENCOUNTER → 2019-10-22 | Outpatient (CLI) | payer MEDICARE ==
[2019-10-22 13:26] LABS: BASO # 0.1 x10^3/uL (0.0-0.2); BASO % 2 % (0-3); EOS # 0.1 x10^3/uL (0.0-0.7); EOS % 3 % (0-3); HEMATOCRIT 38.5 % (36.0-47.0); HEMOGLOBIN 12.5 g/dL (12.0-15.5); LYMPH # 0.7 x10^3/uL (1.0-4.8); LYMPH % 21 % (24-48); MEAN CORPUSCULAR HEMOGLOBIN 30 pg (25-35); MEAN CORPUSCULAR HGB CONC 32 g/dL (31-37); MEAN CORPUSCULAR VOLUME 94 fL (79-100); MONO % 32 % (0-9); NEUT # 1.4 x10^3/uL (1.8-7.7); NEUT % 42 % (31-73); PLATELET COUNT 210 x10^3/uL (140-400); RED BLOOD COUNT 4.11 x10^6/uL (3.50-5.40); RED CELL DISTRIBUTION WIDTH 16.3 % (11.5-14.5); WHITE BLOOD COUNT 3.3 x10^3/uL (4.0-11.0)
[2019-10-22 14:06] LABS: BILIRUBIN,URINE NEGATIVE (NEG); CLARITY,URINE CLEAR; COLOR,URINE YELLOW; NITRITE,URINE NEGATIVE (NEG); PROTEIN,URINE NEGATIVE (NEG-TRACE); UROBILINOGEN,URINE 0.2 mg/dL (0.2 mg/dL)
[2019-10-22 14:20] LABS: BACTERIA,URINE 0 /HPF (0-FEW); RBC,URINE 0 /HPF (0-2); SQUAMOUS EPITHELIAL CELL,UR OCC /LPF; WBC,URINE 20-40 /HPF (0-4)
[2019-10-22 14:39] LABS: ALBUMIN 3.8 g/dL (3.4-5.0); CALCIUM 8.5 mg/dL (8.5-10.1); CREATININE 1.5 mg/dL (0.6-1.0); GFR 42.7; PHOSPHORUS 4.4 mg/dL (2.6-4.7); POTASSIUM 4.2 mmol/L (3.5-5.1)
[2019-10-22 17:50] LABS: % EOS 1 % (0-5); % LYMPHS 27 % (24-48); % SEGS 43 % (35-66)
[2019-10-22 17:51] LABS: % MONOS 29 % (0-10)
[2019-10-22 17:52] LABS: PLT ESTIMATE ADEQUATE (ADEQUATE)
[2019-10-22 17:53] LABS: ANISOCYTOSIS SLIGHT
== END | disposition home or self-care (01) ==
LOC: SPEC 13:09
PROVIDERS: ATTEND Internal Medicine
DX: Z48.22 Encounter for aftercare following kidney transplant (principal); Z79.899 Other long term (current) drug therapy
CPT/HCPCS: 36415; 80069; 80197; 81001; 83735; 84156; 85007; 85025; 87086; 87497; 87799

== ENCOUNTER → 2019-11-06 | Outpatient (CLI) | payer OTHER ==
[2019-11-06 10:33] LABS: BASO # 0.1 x10^3/uL (0.0-0.2); BASO % 1 % (0-3); EOS # 0.2 x10^3/uL (0.0-0.7); EOS % 3 % (0-3); HEMOGLOBIN 12.3 g/dL (12.0-15.5); LYMPH # 0.8 x10^3/uL (1.0-4.8); LYMPH % 14 % (24-48); MEAN CORPUSCULAR HEMOGLOBIN 30 pg (25-35); MEAN CORPUSCULAR HGB CONC 32 g/dL (31-37); MEAN CORPUSCULAR VOLUME 92 fL (79-100); MONO # 1.1 x10^3/uL (0.0-1.1); MONO % 20 % (0-9); NEUT # 3.3 x10^3/uL (1.8-7.7); NEUT % 61 % (31-73); PLATELET COUNT 185 x10^3/uL (140-400); RED BLOOD COUNT 4.12 x10^6/uL (3.50-5.40); RED CELL DISTRIBUTION WIDTH 16.2 % (11.5-14.5); WHITE BLOOD COUNT 5.4 x10^3/uL (4.0-11.0)
[2019-11-06 10:52] LABS: ALBUMIN 3.6 g/dL (3.4-5.0); CALCIUM 8.5 mg/dL (8.5-10.1); CREATININE 1.5 mg/dL (0.6-1.0); GFR 42.7; MAGNESIUM 1.8 mg/dL (1.8-2.4); PHOSPHORUS 4.6 mg/dL (2.6-4.7); POTASSIUM 3.9 mmol/L (3.5-5.1)
== END | disposition home or self-care (01) ==
LOC: SPEC 10:07
PROVIDERS: ATTEND Internal Medicine
DX: Z48.22 Encounter for aftercare following kidney transplant (principal)
CPT/HCPCS: 36415; 80069; 80197; 83735; 85025; 87497; 87799

== ENCOUNTER → 2019-11-25 | Outpatient (CLI) | payer OTHER ==
[2019-11-25 11:28] LABS: BASO % 1 % (0-3); EOS # 0.2 x10^3/uL (0.0-0.7); EOS % 3 % (0-3); HEMATOCRIT 36.6 % (36.0-47.0); HEMOGLOBIN 12.1 g/dL (12.0-15.5); LYMPH % 18 % (24-48); MEAN CORPUSCULAR HEMOGLOBIN 31 pg (25-35); MEAN CORPUSCULAR HGB CONC 33 g/dL (31-37); MEAN CORPUSCULAR VOLUME 92 fL (79-100); MONO # 1.1 x10^3/uL (0.0-1.1); MONO % 21 % (0-9); NEUT # 3.1 x10^3/uL (1.8-7.7); NEUT % 58 % (31-73); PLATELET COUNT 184 x10^3/uL (140-400); RED BLOOD COUNT 3.97 x10^6/uL (3.50-5.40); RED CELL DISTRIBUTION WIDTH 16.1 % (11.5-14.5); WHITE BLOOD COUNT 5.4 x10^3/uL (4.0-11.0)
[2019-11-25 11:35] LABS: ALBUMIN 3.5 g/dL (3.4-5.0); CALCIUM 8.8 mg/dL (8.5-10.1); CREATININE 1.4 mg/dL (0.6-1.0); GFR 46.3; MAGNESIUM 1.8 mg/dL (1.8-2.4); PHOSPHORUS 4.4 mg/dL (2.6-4.7); POTASSIUM 4.3 mmol/L (3.5-5.1)
[2019-11-25 11:46] LABS: BILIRUBIN,URINE NEGATIVE (NEG); CLARITY,URINE CLEAR; COLOR,URINE YELLOW; NITRITE,URINE NEGATIVE (NEG); PH,URINE 6.5; PROTEIN,URINE NEGATIVE (NEG-TRACE)
[2019-11-25 12:10] LABS: BACTERIA,URINE FEW /HPF (0-FEW); SQUAMOUS EPITHELIAL CELL,UR FEW /LPF
[2019-11-25 14:08] LABS: % BANDS 4 % (0-9); % BASOS 1 % (0-3); % EOS 4 % (0-5); % LYMPHS 21 % (24-48); % MONOS 14 % (0-10); % MYELOS 2 % (0-0); % SEGS 54 % (35-66)
[2019-11-25 14:10] LABS: PLT ESTIMATE ADEQUATE (ADEQUATE)
== END | disposition home or self-care (01) ==
LOC: SPEC 11:03
PROVIDERS: ATTEND Internal Medicine Nephrology
DX: Z94.0 Kidney transplant status (principal); Z79.899 Other long term (current) drug therapy
CPT/HCPCS: 36415; 80069; 80197; 81001; 83735; 84156; 85007; 85025; 87086; 87497; 87799

== ENCOUNTER → 2019-12-09 | Outpatient (CLI) | payer OTHER ==
[2019-12-09 13:40] LABS: BILIRUBIN,URINE NEGATIVE (NEG); CLARITY,URINE CLEAR; COLOR,URINE YELLOW; NITRITE,URINE NEGATIVE (NEG); PH,URINE 6.5; PROTEIN,URINE NEGATIVE (NEG-TRACE)
[2019-12-09 13:42] LABS: BASO # 0.1 x10^3/uL (0.0-0.2); BASO % 1 % (0-3); EOS # 0.1 x10^3/uL (0.0-0.7); EOS % 1 % (0-3); HEMATOCRIT 37.5 % (36.0-47.0); HEMOGLOBIN 12.5 g/dL (12.0-15.5); LYMPH # 0.8 x10^3/uL (1.0-4.8); LYMPH % 11 % (24-48); MEAN CORPUSCULAR HEMOGLOBIN 31 pg (25-35); MEAN CORPUSCULAR HGB CONC 33 g/dL (31-37); MEAN CORPUSCULAR VOLUME 92 fL (79-100); MONO # 0.8 x10^3/uL (0.0-1.1); MONO % 10 % (0-9); NEUT # 5.8 x10^3/uL (1.8-7.7); NEUT % 76 % (31-73); PLATELET COUNT 186 x10^3/uL (140-400); RED BLOOD COUNT 4.09 x10^6/uL (3.50-5.40); RED CELL DISTRIBUTION WIDTH 15.9 % (11.5-14.5); WHITE BLOOD COUNT 7.7 x10^3/uL (4.0-11.0)
[2019-12-09 13:43] LABS: ALBUMIN 3.4 g/dL (3.4-5.0); CALCIUM 8.4 mg/dL (8.5-10.1); CREATININE 1.4 mg/dL (0.6-1.0); GFR 46.3; MAGNESIUM 1.8 mg/dL (1.8-2.4); POTASSIUM 4.3 mmol/L (3.5-5.1)
[2019-12-09 13:53] LABS: SQUAMOUS EPITHELIAL CELL,UR MANY /LPF
[2019-12-09 13:54] LABS: BACTERIA,URINE FEW /HPF (0-FEW)
== END | disposition home or self-care (01) ==
LOC: SPEC 13:08
DX: R94.09 Abnormal results of other function studies of central nervous system (principal)
CPT/HCPCS: 36415; 80069; 80197; 81001; 83735; 85025; 87086; 87497; 87799